=== PATIENT | female | born 1960 | race Caucasian/White ===

== ENCOUNTER → 2017-03-29 09:32 | Outpatient (CLI) | payer BC, SELFPAY ==
--- NOTE | 2017-03-29 09:36 | MRI_ITS ---
STUDY: MRI BRAIN AND IACs WITH AND WITHOUT CONTRAST REASON FOR EXAM: Female, 56 years old. Bilateral tinnitus for 5 years. This has been getting worse recently. TECHNIQUE: Standardized multiplanar fat and water weighted pulse sequences were obtained. 10 ml of Gadavist contrast material was administered intravenously for the contrast portion of the examination. COMPARISON: Prior comparison studies are not available for review at this time. FINDINGS: Normal bilateral temporal bones. Normal bilateral internal auditory canals. There is no demonstrated intracanalicular or cisternal vestibular schwannoma (acoustic neuroma). There is no enhancement of the bilateral VIIth or VIIIth cranial nerves. Normal bilateral cochlea, vestibules and semicircular canals. There is mild cerebral atrophy with widening of the extra-axial spaces and ventricular dilatation. There are a limited number of small white matter hyperintensities, distributed throughout the deep white matter tracts of the cerebral hemispheres, consistent with mild chronic white matter ischemic changes. Normal bilateral basal ganglia. Normal thalami. There is no extra-axial fluid accumulation. Normal flow voids within the major intracranial circulation suggesting patency by spin echo criteria. Normal venous enhancement. There is no enhancing intra-axial or extra-axial abnormality. Normal sella turcica, pituitary gland, infundibular stalk, optic chiasm and hypothalamus. Normal tectal plate and pineal gland. Normal midbrain, wilma and medulla. Normal cerebellum. Normal basal cisterns. No demonstrated orbital abnormality, within the constraints of a routine brain study. There is mucoperiosteal inflammatory disease of the paranasal sinuses consistent with mild chronic sinusitis. Normal calvarium and skull base. Normal visualized soft tissue structures. Normal visualized upper cervical spine. MRI/Brain W/WO Contrast IMPRESSION: 1. Involutional changes of the brain, as described above. 2. No MR evidence for acute infarct. 3. No MR evidence for cerebellopontine angle mass Electronically Signed: Darlene Perry MD at 14:32 EST , Service support ,
== END ==
PROVIDERS: Family Provider Internal Medicine; PCP Internal Medicine; Visit Provider Internal Medicine
DX: H93.19 Tinnitus, unspecified ear (principal)
CPT/HCPCS: 70553; A9585

== ENCOUNTER → 2017-12-18 14:54 | Outpatient (CLI) | payer BC, SELFPAY ==
--- NOTE | 2017-12-18 14:58 | BD_ITS ---
STUDY: DUAL ENERGY X-RAY ABSORPTIOMETRY / DXA REASON FOR EXAM: Female, 57 years old. The patient is postmenopausal. Loss of height. TECHNIQUE: Bone Mineral Density (BMD) measurements of lumbar spine and bilateral hips were obtained. COMPARISON: Comparison is made with prior study dated June 18, 2012. FINDINGS: Lumbar Spine (L1-L4): g/cm2 (1.094) / T-score (-0.7) / Z-score (0.3) Findings are suggestive of normal bone density with a low fracture risk. Left Femur Total: g/cm2 (1.084) / T-score (0.6) / Z-score (1.4) Left Femoral Neck: g/cm2 (0.982) / T-score (-0.4) / Z-score (0.8) Right Femur Total: g/cm2 (1.034) / T-score (0.2) / Z-score (1.0) Right Femoral Neck: g/cm2 (0.901) / T-score (-1.0) / Z-score (0.2) The T-Scores on the most recent prior examination were: Lumbar Spine (L1-L4): There has been worsening of bone density since the previous examination. Left Femur Total: which represents an improvement of 0.4%. Right Femur Total: which represents a worsening of 3.3%. BD/Dexa Bone Density Study IMPRESSION: The patient is considered normal as outlined below according to World Hilar[employer] Organization (WHO) criteria with a low fracture risk. There has been worsening of bone density since the previous examination. Reference Information: The T-score is the number of standard deviations above or below the standard which is normal for young adults at their peak bone mineral density. The World Health Organization (WHO) interprets the T-scores as follows: Above -1 Normal bone density Between -1 and -2.5 Osteopenia Equal to / or below -2.5 Osteoporosis As a practical clinical guideline, osteopenia may be graded as follows: Mild -1 through -1.5 Moderate -1.6 through -2.0 Severe -2.1 through -2.4 The Z-score is the number of standard deviations above or below age-matched controls. A Z-score of less than -1.5 would be considered abnormal. References: 1. NIH Osteoporosis and Related Bone Diseases http://www.osteo.org 2. International Society for Clinical Densitometry http://www.iscd.org 3. National Osteoporosis Foundation http://www.nof.org Electronically Signed: Eliel Grey MD at 14:59 EST Tel [phone], Service support ,
== END ==
PROVIDERS: Family Provider Internal Medicine; PCP Internal Medicine; Visit Provider Internal Medicine
DX: Z78.0 Asymptomatic menopausal state (principal)
CPT/HCPCS: 77080

== ENCOUNTER → 2018-01-26 07:54 | Outpatient (CLI) | payer BC, SELFPAY ==
--- NOTE | 2018-01-26 07:55 | BI_ITS ---
MAMMOGRAPHY - BILATERAL SCREENING REASON FOR EXAM: Female, 57 years old. Routine annual screening examination. PERTINENT HISTORY: Aunt with breast cancer. TECHNIQUE: Digital bilateral breast maria guadalupe (3D mammographic acquisition) in the CC and MLO projections. 2-D mediolateral oblique (MLO) and craniocaudad (CC) views of both breasts were obtained. CAD: Full Field Digital Mammography with Computer Added Detection was performed. COMPARISON: Comparison is made with prior study dated April 02, 2014 and June 18, 2012. FINDINGS: Breast Composition: There are scattered areas of fibroglandular density. There are no dominant masses or suspicious calcifications. Stable small bilateral axillary lymph nodes. No other significant abnormalities are identified. There has been no significant change since the prior study. BI/SCREENING MAMM (CAD), BILAT IMPRESSION: Stable bilateral screening mammogram. Yearly follow-up mammogram recommended. (A) ASSESSMENT CATEGORY: BIRADS Category 2: Benign. A letter regarding these results will be sent to the patient by the facility within 30 days. Approximately 10% of breast cancers are not detected by mammography. A normal mammogram should not delay biopsy of a clinically suspicious abnormality. [id number] Electronically Signed: Eliel Grey MD at 8:31 EST Tel [phone], Service support ,
--- OUTSIDE RECORDS SUMMARY | 2018-05-01 08:26 | XMS RPT_ITS | Continuity of Care Document ---
:1960 Author Organization [facility] Address [address] [facility] [address] [place] [address] Phone Care Team Providers Name Role Phone Sveta Sofia DO Unavailable Isidoro Mas MD Unavailable Renzo Corral Unavailable Dr. Terrence Wright Unavailable Manisha Magallanes LPN Unavailable Unavailable EVERT Yee Unavailable Unavailable Unavailable Unavailable Problems Name Dates Details B12 deficiency (E53.8, 266.2) Status: Active BMI 36.0-36.9,adult (Z68.36, V85.36) Status: Active BMI 37.0-37.9, adult (Z68.37, V85.37) Status: Active Body mass index 35.0-35.9, adult (Z68.35, V85.35) Status: Active Current nonsmoker (Renamed from Current non-smoker) (Z78.9, V49.89) Status: Active Deliveries (Parity) Comments: 3 Status: Active Elevated blood pressure reading (R03.0, 796.2) Status: Active Encounter for gynecological examination without abnormal finding (Z01.419, V72.31) Status: Active Encounter for screening mammogram for breast cancer (Renamed from Encounter for screening mammogram for malignant neoplasm of breast) (Z12.31, V76.12) Status: Active Family history of diabetes mellitus (Z83.3, V18.0) Status: Active Hearing loss (H91.90, 389.9) Status: Active Hyperlipidemia (E78.5, 272.4) Status: Active Neoplasm of uncertain behavior of skin (D48.5, 238.2) Comments: shave biopsy today Status: Active Noise-induced hearing loss of both ears (H83.3X3, 388.12) Status: Active Other intervertebral disc degeneration, lumbar region (M51.36, 722.52) Comments: think this is the issue- and discussed avoiding flexion and alot of bending work on posture- is chronic and need to keep up on exercises Status: Active Postmenopausal (Renamed from Postmenopausal status) (Z78.0, V49.81) Status: Active Pregnancies () Comments: 3 Status: Active Stress reaction (F43.0, 308.9) Status: Active Tinnitus (H93.19, 388.30) Status: Active Vertigo (R42, 780.4) Status: Active Vitamin D deficiency, unspecified (E55.9, 268.9) Status: Active Medications Name Dates Details CloNIDine HCl 0.1 MG Oral Tablet 1 (one) Tablet Tablet qd prn bp >150 top # for 0 days Quantity: 30 {Tablet} Refills: 0 Ordered:19-Mar-2017 Elizabeth Yee LPN Start : 19-Mar-2017 Active LORazepam 0.5 MG Oral Tablet 1/2-1 Tablet Tablet qd prn for 0 days Quantity: 30 {Tablet} Refills: 0 Ordered:19-Mar-2017 Elizabeth Yee LPN Start : 19-Mar-2017 Active Comments:thirty F43.0 Biaxin 500 MG Oral Tablet 1 (one) Tablet bid for 0 days Quantity: 28 {Tablet} Refills: 0 Ordered:19-Mar-2017 Elizabeth Yee LPN Start : 31-Aug-2016 End : 19-Mar-2017 Inactive Nasonex 50 MCG/ACT Nasal Suspension 1 (one) Garber each nostril daily for 0 days Quantity: 1 {Container} Refills: 0 Ordered:19-Mar-2017 Elizabeth Yee LPN Start : 31-Aug-2016 End : 19-Mar-2017 Inactive Nitrofurantoin Monohyd Macro 100 MG Oral Capsule 1 (one) Capsule bid for 0 days Quantity: 20 {Capsule} Refills: 0 Ordered:30-Mar-2016 Elizabeth Yee LPN Start : 24-Feb-2016 End : 30-Mar-2016 Inactive No current meds at this time Inactive No Known Historical Medications No routine meds Inactive PredniSONE 20 MG Oral Tablet 1 (one) Tablet daily for 0 days Quantity: 7 {Tablet} Refills: 0 Ordered:07-Oct-2015 Elizabeth Yee LPN Start : 01-Jan-2015 End : 07-Oct-2015 Inactive ProAir HFA 108 (90 Base) MCG/ACT Inhalation Aerosol Solution 1 (one) Aerosol Soln 1-2 puffs every 6 hours prn for 0 days Quantity: 1 {Each} Refills: 0 Ordered:07-Oct-2015 Elizabeth Yee LPN Start : 01-Jan-2015 End : 07-Oct-2015 Inactive Comments:has coupon WELLBUTRIN XL, 150MG (Oral Tablet Extended Release 24 Hour) 1 Tablet ER 24HR Tablet ER 24HR qd for 0 days Quantity: 30 {Tablet} Refills: 3 Ordered:24-Mar-2014 Litzy Zhang Start : 12-Aug-2013 End : 24-Mar-2014 Inactive Adipex-P 37.5 MG Oral Tablet 1 (one) Tablet qd for 0 days Quantity: 30 {Tablet} Refills: 0 Ordered:24-Feb-2016 Franny Treviño LPN Start : 07-Oct-2015 End : 24-Feb-2016 Discontinued Comments:bmi 35wt 231 thirty FLEXERIL, 10MG (Oral Tablet) 1 Tablet tid prn for 0 days Quantity: 20 {Tablet} Refills: 0 Ordered:05-Jun-2012 Taz Pau POLANCO Start : 05-Jun-2012 End : 05-Jun-2012 Discontinued VICODIN, 5-500MG (Oral Tablet) 1-2 Tablet every 6 hours prn for 0 days Quantity: 15 {Tablet} Refills: 0 Ordered:02-Sep-2010 Chantal Wallace Start : 02-Aug-2010 End : 09-Oct-2012 Discontinued Comments:This order discontinued per [facility]. VITAMIN D, 20404COUB (Oral Capsule) 1 (one) Capsule q week for 0 days Quantity: 12 {Capsule} Refills: 0 Ordered:02-Aug-2010 Alexa Landeros LPN Start : 20-Apr-2009 End : 02-Aug-2010 Discontinued Comments:This order discontinued per [facility]. Allergies and Adverse Reactions Name Dates Details No Known Allergies (Allergy) Onset: 24-Mar-2014 Status: Active No Known Drug Allergies (Allergy) Status: Active Past Medical History Name Dates Details Abnormal urine (R82.90, 791.9) Status: Inactive as of 19-Mar-2017 Abnormal urine (R82.90, 791.9) Status: Resolved as of 05-Jun-2012 Breast cancer screening (Z12.39, V76.10) Status: Inactive as of 25-Feb-2016 Bronchitis (J40, 490) Status: Inactive as of 07-Oct-2015 Cervical lymphadenopathy (R59.0, 785.6) Comments: not sure why. ?cat scratch ? early mono willtreat wtih atb not better then work up Status: Inactive as of 07-Oct-2015 Colon cancer screening (Z12.11, V76.51) Status: Inactive as of 25-Feb-2016 Cough (R05, 786.2) Status: Inactive as of 19-Mar-2017 Depression (F32.9, 311) Status: Inactive as of 07-Oct-2015 Dorsalgia, unspecified (M54.9, 724.5) Comments: improved Status: Inactive as of 07-Oct-2015 Fatigue (R53.83, 780.79) Comments: improving with welbutrin Status: Inactive as of 07-Oct-2015 Hoarseness or changing voice (R49.9, 784.49) Status: Inactive as of 19-Mar-2017 Lower urinary tract infection (N39.0, 599.0) Status: Inactive as of 25-Feb-2016 Mononucleosis (075) Comments: rest avoid alcohol - eat well Status: Inactive as of 07-Oct-2015 Myalgia and myositis (729.1) Status: Inactive as of 07-Oct-2015 Otalgia, unspecified ear (H92.09, 388.70) Comments: indiraior - tm normal- call sx persist Status: Resolved as of 30-Mar-2014 Other chest pain (R07.89, 786.59) Comments: yaneth for changes or worsening sx- stress tst neg Status: Resolved as of 12-Aug-2013 Other signs and symptoms in breast (N64.59, 611.79) Status: Inactive as of 07-Oct-2015 Palpitations (R00.2, 785.1) Comments: happens when anxious not routinely Status: Inactive as of 07-Oct-2015 Pelvic pain in female (R10.2, 625.9) Status: Inactive as of 19-Mar-2017 Physical exam, routine (Z00.00, V70.0) Status: Inactive as of 25-Feb-2016 Plantar fasciitis (M72.2, 728.71) Comments: chronic stable-continue present regimen Status: Inactive as of 07-Oct-2015 PostMenopausal Bleeding (N95.0, 627.1) Status: Inactive as of 07-Oct-2015 postmenopausal without estrogen Status: Inactive as of 25-Feb-2016 screening Status: Inactive as of 05-Jun-2012 Screening for HPV (human papillomavirus) (Renamed from Encounter for screening for human papillomavirus (HPV)) (Z11.51, V73.81) Status: Inactive as of 19-Mar-2017 Vertigo (R42, 780.4) Status: Inactive as of 25-Feb-2016 Weight gain (R63.5, 783.1) Status: Inactive as of 19-Mar-2017 Well Women Exam (V72.31)( Pap, Mammo, Routine Female and Dexa) (Renamed from Well Woman V72.31 (p,m,d)) (V72.31) Status: Inactive as of 10-Aug-2014 Procedures Procedure Dates Details No Known Past Surgical History Completed 24-Mar-2014 Date Value Details 29-Mar-2017 Brain W/WO Contrast Result: Comments: See Note; NOTES: [facility] Imaging Services [address] [place] [id number] Brain W/WO Contrast MR#: [id number] Acct: [id number] Name: ADILIA GARDNER Rep #: [id number] : 1960 F 56 From: Darlene Perry MD PCP: Sveta Sofia DO Status: REG CLI Study: Brain W/WO Contrast Date of Exam: 03/29/17 Exam# [id number] Ordering Dr: Sveta Sofia DO STUDY: MRI BRAI N AND IACs WITH AND WITHOUT CONTRAST REASON FOR EXAM: Female, 56 years old. Bilateral tinnitus for 5 years. This has been getting worse recently. TECHNIQUE: Standardized multiplanar fat and water weig hted pulse sequences were obtained. 10 ml of Gadavist contrast material was administered intravenously for the contrast portion of the examination. COMPARISON: Prior comparison studies are not availabl e for review at this time. FINDINGS: Normal bilateral temporal bones. Normal bilateral internal auditory canals. There is no demonstrated intracanalicular or cistern al vestibular schwannoma (acoustic neuroma). There is no enhancement of the bilateral VIIth or VIIIth cranial nerves. Normal bilateral cochlea, vestibules and semicircular canals. The re is mild cerebral atrophy with widening of the extra-axial spaces and ventricular dilatation. There are a limited number of small white matter hyperintensities, distributed throughout the deep white m atter tracts of the cerebral hemispheres, consistent with mild chronic white matter ischemic changes. Normal bilateral basal ganglia. Normal thalami. There is no extra-axial fluid accumulation. Normal flow voids within the major intracranial circulation suggesting patency by spin echo criteria. Normal venous enhancement. There is no enhancing intra-axial or extra-axial abnormality. Normal sella tur cica, pituitary gland, infundibular stalk, optic chiasm and hypothalamus. Normal tectal plate and pineal gland. Normal midbrain, wilma and medulla. Normal cerebellum. Normal basal cisterns. No demonstr ated orbital abnormality, within the constraints of a routine brain study. There is mucoperiosteal inflammatory disease of the paranasal sinuses consistent with mild chronic sinusitis. Normal calvarium and skull base. Normal visualized soft tissue structures. Normal visualized upper cervical spine. MRI/Brain W/WO Contrast IMPRESSION: 1. Involuti onal changes of the brain, as described above. 2. No MR evidence for acute infarct. 3. No MR evidence for cerebellopontine angle mass Electronically Signed: Darlene Perry MD at 14:32 EST , Service support , CC: Sveta Sofia DO Administrative Law Judge: Signed 02-Apr-2014 Bilgil Colecticag Digital AND CAD Result: Comments: See Note; NOTES: [facility] Imaging Services [address] [place] [address] Breast Imaging Report MR#: [id number] Acct: [id number] Name: ADILIA GARDNER Rep #: [id number] : 1960 F 53 From: Eliel Rosales MD PCP: Pau Mcghee DO Status: REG CLI Study: Bilat Diag Digital AND CAD Date of Exam: 04/02/14 Exam# [id number] Ordering Dr: Pau Mcghee DO MAMMOGRAPHY - BILATERAL DIAGNOSTIC REASON FOR EXAM: Female, 53 years old. Right breast pain. PERTINENT HISTORY: Non-contributory. TECHNIQUE: Digital examination. Mediolateral oblique (MLO) and craniocaudad (CC) views of both breasts were obtained. CAD: CAD was performed on this study. COMPARISON: Comparison is made with prior study dated June 18, 2012 and March 31, 2009. FINDINGS: Breast Composition: There are scattered areas of fibroglandular density. There are no dominant masses or suspicious calcifications. No other significant abnormalit ies are identified. There has been no significant change since the prior study. IMPRESSION: Stable bilateral diagnostic mammogram. One year follow-up recommended . (A) ASSESSMENT CATEGORY: BIRADS Category 2: Benign. A letter regarding these results will be sent to the patient by the facility within 30 days. Approximatel y 10% of breast cancers are not detected by mammography. A normal mammogram should not delay biopsy of a clinically suspicious abnormality. Electronically Signed: Eliel Rosales MD at 15:22 EST Tel [phone], Service support [phone], CC: Pau Mcghee DO Administrative Law Judge: Signed 16-Apr-2013 Echocardiogram Complete Result: Comments: See Note; NOTES: [facility] [address] [place] [address] Echo Complete 04/16/13 0921 MR#: [id number] Acct: [id number] Name: Landon GARDNER Rep #: [id number] : 1960 52 From: Zhou Childs MD Attending Dr: Pau Mcghee DO Status: REG CLI Ordering Dr: Pau Mcghee DO Date: 04/16/13 Location: [facility] Sex: F C Admitted: Salvador bateman This was a 2D Doppler, Color Flow transthoracic echocardiogram. Exam performed in department. Left Ventricle Normal size and thickness. The estimated ejection fraction is 65 %. No regional wal l motion abnormalities noted. Right Ventricle Normal size and thickness. Normal systolic function. Atria Normal left atrium. Normal right atrium. Normal atrial septum. Mitral Valve The mitral valve is structurally normal. No prolapse or stenosis seen. Trivial mitral valve insufficiency. Tricuspid Valve Normal tricuspid valve. Trivial tricuspid valve insufficiency. Unable to estimate RV systolic pressure. Aortic Valve Normal aortic valve. Pulmonic Valve Normal pulmonic valve. Great Vessels Normal aortic root. Normal arch. Normal inferior vena cava. Inferior vena cava collap se with sniff. Pericardium/Pleural No pericardial effusion. LVIDd: 4.6 cm IVSd: 1.1 cm Ao root diam: 3.2 cm LAV(MOD-bp): 53.8 ml LVIDs: 1.9 cm LVPWd: 0.92 cm Ao root area: 8.3 cm2 LAV(MOD-bp) I ndexed: 26.6 ml/m2 RVDd: 3.2 cm FS: 58.8 % LA dimension: 3.9 cm LAV(MOD-sp2): 52.9 ml LAV(MOD-sp4): 54.7 ml LA A4 area: 19.2 cm2 RA A4 area: 12.7 cm2 MV E max tyler: Lat Peak E' Tyler: Med Peak E' Tyler: Ao V2 max: 75.4 cm/sec 14.4 cm/sec 10.2 cm/sec 126.2 cm/sec MV A max tyler: Ao max P.4 mmHg 75.4 cm/sec MV E/A: 1.0 LV V1 max: 111.1 cm/sec PA V2 max: 92.7 cm/sec E/E' lat: 5.2 E /E' med: 7.4 LV V1 max P.9 mmHg PA max P.4 mmHg Interpretation Summary The estimated ejection fraction is 65 %. Trivial mitral valve insufficiency. Trivial tricuspid valve insufficiency. Unable to estimate RV systolic pressure. Ordering Physician: Pau Mcghee Performed By: Pia Escalante RDCS : Pau Mcghee DO Date Dictated: 04/16/13 0921 Date Transcribed: 04/16/13 1103 Administrative Law Judge: Signed Family History Unknown Family Member Name Dates Details Father Comments: - diabetes copd Status: Active First Degree Relatives Comments: DM, Emotional prob, Heart/lung dx Status: Active Mother Comments: living with anxiety - alzheimers high chol Status: Active Social History Name Dates Details Alcohol Use Comments: Occasional alcohol use Status: Active Caffeine Use Comments: 3 cola QD Status: Active Living Situation Comments: , heterosexual- 3 kids- 32, 28, 21- Status: Active 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 Non Smoker/No Tobacco Use Status: Active Vital Signs Date Test Result Details :40 Pulse 67 /min Comments: Pattern: Regular Respiration Rate 18 /min Comments: Pattern: Unlabored O2 SAT 97 % Comments: Room air BP Systolic 124 mm[Hg] Comments: Patient Position: Sitting; Cuff Location: Left Arm; Cuff Size: Large BP Diastolic 82 mm[Hg] Comments: Patient Position: Sitting; Cuff Location: Left Arm; Cuff Size: Large Weight 239 lb Height 67.25 in Body Mass Index Calculated 37.15 kg/m2 Body Surface Area Calculated 2.19 m2 :20 Pulse 75 /min Comments: Pattern: Regular Respiration Rate 18 /min Comments: Pattern: Unlabored O2 SAT 98 % Comments: Room air BP Systolic 122 mm[Hg] Comments: Patient Position: Sitting; Cuff Location: Left Arm; Cuff Size: Large BP Diastolic 88 mm[Hg] Comments: Patient Position: Sitting; Cuff Location: Left Arm; Cuff Size: Large Weight 238.5 lb Height 67.25 in Body Mass Index Calculated 37.08 kg/m2 Body Surface Area Calculated 2.19 m2 :18 Temperature 97.9 f Comments: Method: Temporal Pulse 79 /min Comments: Pattern: Regular Respiration Rate 18 /min Comments: Pattern: Unlabored O2 SAT 97 % Comments: Room air BP Systolic 118 mm[Hg] Comments: Patient Position: Sitting; Cuff Location: Left Arm; Cuff Size: Large BP Diastolic 80 mm[Hg] Comments: Patient Position: Sitting; Cuff Location: Left Arm; Cuff Size: Large Weight 236 lb Height 67.25 in Body Mass Index Calculated 36.69 kg/m2 Body Surface Area Calculated 2.18 m2 :24 Pulse 70 /min Comments: Pattern: Regular Respiration Rate 18 /min Comments: Pattern: Unlabored O2 SAT 98 % Comments: Room air BP Systolic 124 mm[Hg] Comments: Patient Position: Sitting; Cuff Location: Left Arm; Cuff Size: Large BP Diastolic 80 mm[Hg] Comments: Patient Position: Sitting; Cuff Location: Left Arm; Cuff Size: Large Weight 236 lb Height 67.25 in Body Mass Index Calculated 36.69 kg/m2 Body Surface Area Calculated 2.18 m2 :30 Temperature 97.2 f Pulse 67 /min Comments: Pattern: Regular Respiration Rate 16 /min Comments: Pattern: Unlabored O2 SAT 97 % Comments: Room air BP Systolic 118 mm[Hg] Comments: Patient Position: Sitting; Cuff Location: Left Arm; Cuff Size: Standard BP Diastolic 78 mm[Hg] Comments: Patient Position: Sitting; Cuff Location: Left Arm; Cuff Size: Standard Weight 231 lb Height 67.25 in Body Mass Index Calculated 35.91 kg/m2 Body Surface Area Calculated 2.16 m2 :18 Pulse 68 /min Comments: Pattern: Regular Respiration Rate 18 /min Comments: Pattern: Unlabored BP Systolic 128 mm[Hg] Comments: Patient Position: Sitting; Cuff Location: Left Arm; Cuff Size: Large BP Diastolic 62 mm[Hg] Comments: Patient Position: Sitting; Cuff Location: Left Arm; Cuff Size: Large Weight 231 lb Height 67.25 in Body Mass Index Calculated 35.91 kg/m2 Body Surface Area Calculated 2.16 m2 :55 Comments: refuse weight Temperature 97.6 f Comments: Method: Temporal Pulse 78 /min Comments: Pattern: Regular Respiration Rate 18 /min Comments: Pattern: Unlabored O2 SAT 95 % Comments: Room air BP Systolic 120 mm[Hg] Comments: Patient Position: Sitting; Cuff Location: Left Arm; Cuff Size: Standard BP Diastolic 80 mm[Hg] Comments: Patient Position: Sitting; Cuff Location: Left Arm; Cuff Size: Standard Height 67.25 in :05 Comments: refuse weight Temperature 97.6 f Comments: Method: Temporal Pulse 74 /min Comments: Pattern: Regular Respiration Rate 18 /min Comments: Pattern: Unlabored O2 SAT 98 % Comments: Room air BP Systolic 114 mm[Hg] Comments: Patient Position: Sitting; Cuff Location: Left Arm; Cuff Size: Large BP Diastolic 80 mm[Hg] Comments: Patient Position: Sitting; Cuff Location: Left Arm; Cuff Size: Large Height 67.25 in :02 Temperature 97.7 f Pulse 66 /min Comments: Pattern: Regular Respiration Rate 16 /min Comments: Pattern: Unlabored BP Systolic 110 mm[Hg] Comments: Patient Position: Sitting; Cuff Location: Left Arm; Cuff Size: Large BP Diastolic 82 mm[Hg] Comments: Patient Position: Sitting; Cuff Location: Left Arm; Cuff Size: Large Height 67.25 in :24 Temperature 97.8 f Comments: Method: Oral Pulse 59 /min Comments: Pattern: Regular Respiration Rate 16 /min Comments: Pattern: Unlabored BP Systolic 126 mm[Hg] Comments: Patient Position: Sitting; Cuff Location: Left Arm; Cuff Size: Standard BP Diastolic 72 mm[Hg] Comments: Patient Position: Sitting; Cuff Location: Left Arm; Cuff Size: Standard Height 67.25 in :06 Temperature 96.6 f Pulse 72 /min Comments: Pattern: Regular Respiration Rate 16 /min Comments: Pattern: Unlabored BP Systolic 114 mm[Hg] Comments: Patient Position: Sitting; Cuff Location: Left Arm; Cuff Size: Large BP Diastolic 72 mm[Hg] Comments: Patient Position: Sitting; Cuff Location: Left Arm; Cuff Size: Large Height 67.25 in :12 Temperature 96.2 f Pulse 65 /min Comments: Pattern: Regular Respiration Rate 18 /min Comments: Pattern: Unlabored BP Systolic 122 mm[Hg] Comments: Patient Position: Sitting; Cuff Location: Left Arm; Cuff Size: Large BP Diastolic 80 mm[Hg] Comments: Patient Position: Sitting; Cuff Location: Left Arm; Cuff Size: Large Weight 231 lb Height 67.25 in Body Mass Index Calculated 35.91 kg/m2 Body Surface Area Calculated 2.16 m2 :29 Temperature 97.3 f Comments: Method: Oral Pulse 76 /min Comments: Pattern: Regular Respiration Rate 20 /min Comments: Pattern: Unlabored BP Systolic 118 mm[Hg] Comments: Patient Position: Sitting; Cuff Location: Left Arm; Cuff Size: Large BP Diastolic 80 mm[Hg] Comments: Patient Position: Sitting; Cuff Location: Left Arm; Cuff Size: Large Weight 231 lb Height 67.25 in Body Mass Index Calculated 35.91 kg/m2 Body Surface Area Calculated 2.16 m2 :06 Temperature 97 f Pulse 66 /min Comments: Pattern: Regular Respiration Rate 18 /min Comments: Pattern: Unlabored BP Systolic 118 mm[Hg] Comments: Patient Position: Sitting; Cuff Location: Left Arm; Cuff Size: Large BP Diastolic 72 mm[Hg] Comments: Patient Position: Sitting; Cuff Location: Left Arm; Cuff Size: Large Height 67 in :35 Temperature 97.4 f Pulse 70 /min Comments: Pattern: Regular Respiration Rate 18 /min Comments: Pattern: Unlabored BP Systolic 116 mm[Hg] Comments: Patient Position: Sitting; Cuff Location: Left Arm; Cuff Size: Large BP Diastolic 82 mm[Hg] Comments: Patient Position: Sitting; Cuff Location: Left Arm; Cuff Size: Large Height 67 in :31 Temperature 97.4 f Pulse 86 /min Comments: Pattern: Regular Respiration Rate 18 /min Comments: Pattern: Unlabored BP Systolic 116 mm[Hg] Comments: Patient Position: Sitting; Cuff Location: Left Arm; Cuff Size: Large BP Diastolic 78 mm[Hg] Comments: Patient Position: Sitting; Cuff Location: Left Arm; Cuff Size: Large Height 67 in :44 Temperature 95.6 f Pulse 68 /min Comments: Pattern: Regular Respiration Rate 16 /min Comments: Pattern: Unlabored BP Systolic 122 mm[Hg] Comments: Patient Position: Sitting; Cuff Location: Left Arm; Cuff Size: Large BP Diastolic 80 mm[Hg] Comments: Patient Position: Sitting; Cuff Location: Left Arm; Cuff Size: Large :13 Temperature 98.8 f Pulse 76 /min Comments: Pattern: Regular Respiration Rate 16 /min Comments: Pattern: Unlabored BP Systolic 102 mm[Hg] Comments: Patient Position: Sitting; Cuff Location: Left Arm; Cuff Size: Large BP Diastolic 72 mm[Hg] Comments: Patient Position: Sitting; Cuff Location: Left Arm; Cuff Size: Large Weight 180.5 lb Height 67 in Body Mass Index Calculated 28.27 kg/m2 Body Surface Area Calculated 1.94 m2 :41 Temperature 97.3 f Comments: Method: Oral Pulse 82 /min Comments: Pattern: Regular Respiration Rate 15 /min Comments: Pattern: Unlabored BP Systolic 126 mm[Hg] Comments: Patient Position: Sitting; Cuff Location: Left Arm; Cuff Size: Standard BP Diastolic 78 mm[Hg] Comments: Patient Position: Sitting; Cuff Location: Left Arm; Cuff Size: Standard Weight 192.5 lb Height 67 in Body Mass Index Calculated 30.15 kg/m2 Body Surface Area Calculated 1.99 m2 :11 Pulse 80 /min Comments: Pattern: Regular Respiration Rate 20 /min Comments: Pattern: Unlabored BP Systolic 118 mm[Hg] Comments: Patient Position: Sitting; Cuff Location: Left Arm; Cuff Size: Standard BP Diastolic 72 mm[Hg] Comments: Patient Position: Sitting; Cuff Location: Left Arm; Cuff Size: Standard Weight 229.5 lb :19 Temperature 97.3 f Pulse 76 /min Comments: Pattern: Regular Respiration Rate 18 /min Comments: Pattern: Unlabored BP Systolic 108 mm[Hg] Comments: Patient Position: Sitting; Cuff Location: Left Arm; Cuff Size: Large BP Diastolic 74 mm[Hg] Comments: Patient Position: Sitting; Cuff Location: Left Arm; Cuff Size: Large Weight 229 lb Height 67.5 in Body Mass Index Calculated 35.34 kg/m2 Body Surface Area Calculated 2.15 m2 Results Date Description Value Details [id number] Microscopic Examination Comments: PATIENT WAS FASTINGPERFORMED BY: [employer] [facility] [id number] Bacteria None seen (Normal) Mucus Threads Present (Normal) Epithelial Cells (non renal) 0-10 {/hpf} (Normal) Range: 0 - 10 RBC 0-2 {/hpf} (Normal) Range: 0 - 2 WBC 0-5 {/hpf} (Normal) Range: 0 - 5 :06 TSH (19001) Comments: PATIENT WAS FASTINGPERFORMED BY: [employer] [facility] [id number] TSH 2.200 {uIU/mL} (Normal) Range: 0.450-4.500 :06 URINALYSIS, W/ MICRO ([id number]) Comments: PATIENT WAS FASTINGPERFORMED BY: [employer] [place] [address] [id number] Microscopic Examination See below: (Normal) Comments: Microscopic was indicated and was performed. Nitrite, Urine Negative (Normal) Urobilinogen,Semi-Qn 0.2 mg/dL (Normal) Range: 0.2-1.0 Bilirubin Negative (Normal) Occult Blood Negative (Normal) Ketones Negative (Normal) Glucose Negative (Normal) Protein Negative (Normal) WBC Esterase 1+ (Abnormal) Appearance Clear (Normal) Urine-Color Yellow (Normal) pH 5.5 (Normal) Range: 5.0-7.5 Specific [place] 1.024 (Normal) Range: 1.005-1.030 [id number] MICROALBUMIN: CREATININE RATIO Comments: PATIENT WAS FASTINGPERFORMED BY: [facility] [id number] (29170) AND (69300) Alb/Creat Ratio 4.6 {mg/g_creat} (Normal) Range: 0.0-30.0 Albumin, Urine 7.3 ug/mL (Normal) Creatinine, Urine 160.4 mg/dL (Normal) 30-Upk-349930:06 METABOLIC PANEL, COMPREHENSIVE Comments: PATIENT WAS FASTINGPERFORMED BY: [facility] [id number] (55648) ALT (SGPT) 22 [iU]/L (Normal) Range: 0-32 AST (SGOT) 26 [iU]/L (Normal) Range: 0-40 Alkaline Phosphatase, S 60 [iU]/L (Normal) Range: 39-117 Bilirubin, Total 0.4 mg/dL (Normal) Range: 0.0-1.2 A/G Ratio 2.0 (Normal) Range: 1.2-2.2 Globulin, Total 2.4 g/dL (Normal) Range: 1.5-4.5 Albumin, Serum 4.7 g/dL (Normal) Range: 3.5-5.5 Protein, Total, Serum 7.1 g/dL (Normal) Range: 6.0-8.5 Calcium, Serum 9.6 mg/dL (Normal) Range: 8.7-10.2 Carbon Dioxide, Total 23 mmol/L (Normal) Range: 18-29 Chloride, Serum 101 mmol/L (Normal) Range: 96-106 Potassium, Serum 4.8 mmol/L (Normal) Range: 3.5-5.2 Sodium, Serum 141 mmol/L (Normal) Range: 134-144 BUN/Creatinine Ratio 17 (Normal) Range: 9-23 eGFR If Africn Am 101 mL/min/1.73 (Normal) eGFR If NonAfricn Am 87 mL/min/1.73 (Normal) Creatinine, Serum 0.76 mg/dL (Normal) Range: 0.57-1.00 BUN 13 mg/dL (Normal) Range: 6-24 Glucose, Serum 90 mg/dL (Normal) Range: 65-99 56-Dyr-923274:06 CBC W/AUTO DIFF WBC (26812) Comments: PATIENT WAS FASTINGPERFORMED BY: [employer] Kuuamb[address] [id number] Immature Grans (Abs) 0.0 {x10E3/uL} (Normal) Range: 0.0-0.1 Immature Granulocytes 0 % (Normal) Baso (Absolute) 0.0 {x10E3/uL} (Normal) Range: 0.0-0.2 Eos (Absolute) 0.1 {x10E3/uL} (Normal) Range: 0.0-0.4 Monocytes(Absolute) 0.3 {x10E3/uL} (Normal) Range: 0.1-0.9 Lymphs (Absolute) 2.2 {x10E3/uL} (Normal) Range: 0.7-3.1 Neutrophils (Absolute) 2.0 {x10E3/uL} (Normal) Range: 1.4-7.0 Basos 0 % (Normal) Eos 2 % (Normal) Monocytes 6 % (Normal) Lymphs 49 % (Normal) Neutrophils 43 % (Normal) Platelets 214 {x10E3/uL} (Normal) Range: 150-379 RDW 13.6 % (Normal) Range: 12.3-15.4 MCHC 32.9 g/dL (Normal) Range: 31.5-35.7 MCH 28.8 pg (Normal) Range: 26.6-33.0 MCV 87 fL (Normal) Range: 79-97 Hematocrit 40.4 % (Normal) Range: 34.0-46.6 Hemoglobin 13.3 g/dL (Normal) Range: 11.1-15.9 RBC 4.62 {x10E6/uL} (Normal) Range: 3.77-5.28 WBC 4.6 {x10E3/uL} (Normal) Range: 3.4-10.8 90-Snz-738905:06 VITAMIN B-12 (CYANOCOBALAMIN) Comments: PATIENT WAS FASTINGPERFORMED BY: Arista PowerChristian Health Care CenterVskmei40[address] [id number] ([id number]) Vitamin B12 332 pg/mL (Normal) Range: 232-1245 16-Osq-841609:06 LIPID PANEL (54303) Comments: PATIENT WAS FASTINGPERFORMED BY: Arista PowerChristian Health Care CenterWhhjjg[address] [id number]; fu 3-5 KF LDL/HDL Ratio 2.1 {ratio_units} (Normal) Range: 0.0-3.2 Comments: LDL/HDL Ratio Men Women 1/2 Avg.Risk 1.0 1.5 Av g.Risk 3.6 3.2 2X Avg.Risk 6.2 5.0 3X Avg.Risk 8.0 6.1 LDL Cholesterol Calc 142 mg/dL (Abnormal) Range: 0-99 VLDL Cholesterol Jerald 23 mg/dL (Normal) Range: 5-40 HDL Cholesterol 67 mg/dL (Normal) Triglycerides 115 mg/dL (Normal) Range: 0-149 Cholesterol, Total 232 mg/dL (Abnormal) Range: 100-199 85-Zpj-96764:04 HPV automatic Comments: Source.............Cervix;EndocervixNo. of containers..01 CYTYC Thin Prep VialPATIENT NOT FASTINGPERFORMED BY: WB [facility] [address] [id number] BY: =G [facility] (34207) rp Ozyzbafifq899 [facility] [place] [id number] Information: [id number] HPV, high-risk Negative Comments: This high-risk HPV test detects thirteen high- risk types(16/18/31/33/35/39/45/51/52/56/58/59/68) without differentiation. . (Normal) Note: PAPSMR (Normal) Comments: The Pap smear is a screening test designed to aid in the detection ofpremalignant and malignant conditions of the uterine cervix. It is not adiagnostic procedure and should not be used as the sole mean s of detectingcervical cancer. Both false-positive and false-negative reports do occur. .This liquid based ThinPrep(R) pap test w as screened with theuse of an image guided system. See Note . (Normal) DIAGNOSIS: SPRCS (Normal) Comments: NEGATIVE FOR INTRAEPITHELIAL LESION AND MALIGNANCY.Satisfactory for evaluation. Endocervical and/or squamous metaplasticcells (endocervical component) are present.Z11.51Patsy Truong Cytot echnologist (ASCP) :41 HgA1C , Office (41568) HgA1C , Office 5.4 % (Normal) Range: 4.6 - 7.1 :32 Urinalysis, Office (34767) UA - LEUKOCYTE ESTERASE Moderate (Normal) UA - NITRITE Negative (Normal) URINE UROBILINGN SAPNA Normal mg/dL (Normal) TIMED UA - PROTEIN Negative mg/dL (Normal) UA - PH 6.0 (Normal) Comments: 5.5 UA - BLOOD Negative (Normal) UA - SPECIFIC GRAVITY 1.025 (Normal) UA - KETONES Negative mg/dL (Normal) UA - BILIRUBIN Small (Normal) UA - GLUCOSE Negative (Normal) :3 COLON BIOPSY (CHOOSE See Note (Normal) Comments: [facility] [address] [place], [address] 0 SITE) Comments: Patient: ADILIA GARDNER : 1960 (55/F) Acct Num: [id number] Phys: Terrence Wright Unit Num: [id number] Loc: LABSPEC Specimen: [id number] Received: 10/15/15 - 1503 Spec Type: COLON BX TISSUES TISSUES: GROSS DESCRIPTION A - Received is one container labeled with the patient name and designated cecum polyp biopsy. The specimen consists of multiple irregu lar fragments of light parra soft tissue that in aggregate measure 0.5 x 0.5 x 0.1 cm. The specimen is totally submitted in one cassette. B - Received is one container labeled with the patient name an d designated sigmoid/rectum polyp biopsy. The specimen consists of two irregular fragmentsof light parra soft tissue that in aggregate measure 0.6 x 0.5 x 0.1 cm. The specimen is totally submitted in o ne cassette. / SOPHIA:jericho 10/19/15 TC:1 CPT:39423 x2 HEADER OPERATION: Colonoscopy with biopsies PRE-OP DIAGNOSIS: Screening/polyp TISSUE SUBMITTED: A - Cecum polyp biopsies, rule out adenoma, B - Sigmoid/rectum polyps biopsies, rule out adenoma MICROSCOPIC DESCRIPTION Slides are reviewed. MICROSCOPIC DIAGNOSIS A. Cecum polyp, biopsy: Fragments of tubular adenoma. B. Sigmo id/rectum polyps, biopsy: Tubular adenoma. Hyperplastic polyp. SOPHIA:jericho 10/20/15 Signed Davie Marcano 10/20/15 <signature on file> :34 LIPID PANEL (85425) Comments: PATIENT WAS FASTINGPERFORMED BY: [facility] [id number]; will review on 03/30 LDL/HDL Ratio 1.9 {ratio_units} (Normal) Range: 0.0-3.2 Comments: LDL/HDL Ratio Men Women 1/2 Avg.Risk 1.0 1.5 Av g.Risk 3.6 3.2 2X Avg.Risk 6.2 5.0 3X Avg.Risk 8.0 6.1 LDL Cholesterol Calc 121 mg/dL (Abnormal) Range: 0-99 VLDL Cholesterol Jerald 17 mg/dL (Normal) Range: 5-40 HDL Cholesterol 64 mg/dL (Normal) Triglycerides 84 mg/dL (Normal) Range: 0-149 Cholesterol, Total 202 mg/dL (Abnormal) Range: 100-199 :34 CALCIFIDIOL (77721) VIT D 25 Comments: PATIENT WAS FASTINGPERFORMED BY: [facility]CoChristian [facility] Care CenterKgwjlr[address] [id number] Vitamin D, 25-Hydroxy 34.0 ng/mL (Normal) Range: 30.0-100.0 Comments: Vitamin D deficiency has been defined by the [place] ofMedicine and an Endocrine Society practice guideline as alevel of serum 25-OH vitamin D less than 20 ng/mL (1,2).The Endocrine Society went on to further define vitamin Dinsufficiency as a level between 21 and 29 ng/mL (2).1. IOM ([place] of Medicine). 2010. Dietary reference intakes for calcium and D. [place]: The National Academies Press.2. Bernardo MF, Darwin [place], Ramona BENZ, et al. Evaluation, treatment, and prevention of vitamin D deficiency: an Endocrine Society clinical practice guideline. JCEM. 2010; 96(7):1911-30. :34 VITAMIN B-12 (CYANOCOBALAMIN) Comments: PATIENT WAS FASTINGPERFORMED BY: [facility] Yjdvjw[address] [id number] ([id number]) Vitamin B12 399 pg/mL (Normal) Range: 211-946 90-Kcy-489450:47 Pathology Report Comments: PERFORMED BY: KWCYT [facility] Cyto Ojthh71992 [address] [facility] [id number] BY: [facility] Dermatopathology Cdqyaji162 [address] [id number] Information: [id number] See MATER Comments: Material submitted: .SHAVE BIOPSY BACKClinician provided ICD-9:238.2 ; Neoplasm of uncertain behavior of skinClinical history: Note (Normal) .LESION CAME ON QUICKLY RAISED. 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 DESIGNATED BACK IS AFRAGMENT OF PARRA/YELLOW TISSUE MEASURING 0.6 X 0.5 X 0.3 CM. THEMARGINS ARE INKED BLUE. THE SPECIMEN IS BISECTED AND SUBMITTED INTOTO.ARONW/MELOathologist provided ICD-9:173.52CPT .[id number] 13-Lih-845115:42 TSH (51770) Comments: PATIENT WAS FASTINGPERFORMED BY: [facility] [id number] TSH 2.050 {uIU/mL} (Normal) Range: 0.450-4.500 :42 CBC WITH MANUAL DIFF Comments: PATIENT WAS FASTINGPERFORMED BY: [facility] [id number] Information: [id number] (29642) Immature Grans (Abs) 0.0 {x10E3/uL} (Normal) Range: 0.0-0.1 Immature Granulocytes 0 % (Normal) Baso (Absolute) 0.0 {x10E3/uL} (Normal) Range: 0.0-0.2 Eos (Absolute) 0.1 {x10E3/uL} (Normal) Range: 0.0-0.4 Monocytes(Absolute) 0.3 {x10E3/uL} (Normal) Range: 0.1-0.9 Lymphs (Absolute) 2.2 {x10E3/uL} (Normal) Range: 0.7-3.1 Neutrophils (Absolute) 1.6 {x10E3/uL} (Normal) Range: 1.4-7.0 Basos 1 % (Normal) Eos 2 % (Normal) Monocytes 7 % (Normal) Lymphs 52 % (Normal) Neutrophils 38 % (Normal) Platelets 209 {x10E3/uL} (Normal) Range: 150-379 RDW 14.2 % (Normal) Range: 12.3-15.4 MCHC 33.4 g/dL (Normal) Range: 31.5-35.7 MCH 28.7 pg (Normal) Range: 26.6-33.0 MCV 86 fL (Normal) Range: 79-97 Hematocrit 40.7 % (Normal) Range: 34.0-46.6 Hemoglobin 13.6 g/dL (Normal) Range: 11.1-15.9 RBC 4.74 {x10E6/uL} (Normal) Range: 3.77-5.28 WBC 4.2 {x10E3/uL} (Normal) Range: 3.4-10.8 :42 Metabolic Panel, Comprehensive Comments: PATIENT WAS FASTINGPERFORMED BY: [facility] [id number] (26714) ALT (SGPT) 16 [iU]/L (Normal) Range: 0-32 AST (SGOT) 21 [iU]/L (Normal) Range: 0-40 Alkaline Phosphatase, S 62 [iU]/L (Normal) Range: 39-117 Bilirubin, Total 0.4 mg/dL (Normal) Range: 0.0-1.2 A/G Ratio 1.6 (Normal) Range: 1.1-2.5 Globulin, Total 2.9 g/dL (Normal) Range: 1.5-4.5 Albumin, Serum 4.5 g/dL (Normal) Range: 3.5-5.5 Protein, Total, Serum 7.4 g/dL (Normal) Range: 6.0-8.5 Calcium, Serum 9.7 mg/dL (Normal) Range: 8.7-10.2 Comments: Please note reference interval change Carbon Dioxide, Total 19 mmol/L (Normal) Range: 18-29 Chloride, Serum 104 mmol/L (Normal) Range: 97-108 Potassium, Serum 4.8 mmol/L (Normal) Range: 3.5-5.2 Sodium, Serum 140 mmol/L (Normal) Range: 134-144 BUN/Creatinine Ratio 20 (Normal) Range: 9-23 eGFR If Africn Am 114 mL/min/1.73 (Normal) eGFR If NonAfricn Am 99 mL/min/1.73 (Normal) Creatinine, Serum 0.69 mg/dL (Normal) Range: 0.57-1.00 BUN 14 mg/dL (Normal) Range: 6-24 Glucose, Serum 87 mg/dL (Normal) Range: 65-99 12-Bjk-881040:42 Lipid Panel (78379) Comments: PATIENT WAS FASTINGPERFORMED BY: LabCoChristian [facility] Care CenterMqbohp[address] [id number] LDL/HDL Ratio 2.4 {ratio_units} (Normal) Range: 0.0-3.2 Comments: LDL/HDL Ratio Men Women 1/2 Avg.Risk 1.0 1.5 Av g.Risk 3.6 3.2 2X Avg.Risk 6.2 5.0 3X Avg.Risk 8.0 6.1 LDL Cholesterol Calc 132 mg/dL (Abnormal) Range: 0-99 VLDL Cholesterol Jerald 26 mg/dL (Normal) Range: 5-40 HDL Cholesterol 54 mg/dL (Normal) Comments: According to ATP-III Guidelines, HDL-C >59 mg/dL is considered anegative risk factor for CHD. Triglycerides 132 mg/dL (Normal) Range: 0-149 Cholesterol, Total 212 mg/dL (Abnormal) Range: 100-199 32-Qfa-661386:42 CALCIFEDIOL (76772) Comments: PATIENT WAS FASTINGPERFORMED BY: [facility] Xqxsdg5724 [facility] [place] [id number] Vitamin D, 25-Hydroxy 42.0 ng/mL (Normal) Range: 30.0-100.0 Comments: Vitamin D deficiency has been defined by the [place] ofMedicine and an Endocrine Society practice guideline as alevel of serum 25-OH vitamin D less than 20 ng/mL (1,2).The Endocrine Society went on to further define vitamin Dinsufficiency as a level between 21 and 29 ng/mL (2).1. IOM ([place] of Medicine). 2010. Dietary reference intakes for calcium and D. [place]: The National Academies Press.2. Bernardo MF, Darwin ANGELO, Ramona BENZ, et al. Evaluation, treatment, and prevention of vitamin D deficiency: an Endocrine Society clinical practice guideline. JCEM. 2010; 96(7):1911-30. 98-Vop-596944:42 Vitamin B-12 (cyanocobalamin) Comments: PATIENT WAS FASTINGPERFORMED BY: [facility] Osgmdw[address] [id number] (35904) Vitamin B12 518 pg/mL (Normal) Range: 211-946 87-Hwa-82446:33 Vitamin D Hydroxy (01639) Comments: PATIENT WAS FASTINGPERFORMED BY: [facility] Ikaoiz[address] [id number] Vitamin D, 25-Hydroxy 34.7 ng/mL (Normal) Range: 30.0-100.0 Comments: Vitamin D deficiency has been defined by the [place] ofMedicine and an Endocrine Society practice guideline as alevel of serum 25-OH vitamin D less than 20 ng/mL (1,2).The Endocrine Society went on to further define vitamin Dinsufficiency as a level between 21 and 29 ng/mL (2).1. IOM ([place] of [place]). 2010. Dietary reference intakes for calcium and D. [place]: The National Academies Press.2. Bernardo MF, Darwin ANGELO, Ramona BENZ, et al. Evaluation, treatment, and prevention of vitamin D deficiency: an Endocrine Society clinical practice guideline. JCEM. 2010; 96(7):6831-30. :33 VITAMIN B-12 (CYANOCOBALAMIN) Comments: PATIENT WAS FASTINGPERFORMED BY: [employer] Man [facility] [id number] (45933) Vitamin B12 376 pg/mL (Normal) Range: 211-946 :33 LIPID PANEL (59256) Comments: PATIENT WAS FASTINGPERFORMED BY: [employer] [id number] LDL/HDL Ratio 1.8 {ratio_units} (Normal) Range: 0.0-3.2 LDL Cholesterol Calc 131 mg/dL (Abnormal) Range: 0-99 HDL Cholesterol 74 mg/dL (Normal) Comments: According to ATP-III Guidelines, HDL-C >59 mg/dL is considered anegative risk factor for CHD. VLDL Cholesterol Jerald 14 mg/dL (Normal) Range: 5-40 Triglycerides 72 mg/dL (Normal) Range: 0-149 Cholesterol, Total 219 mg/dL (Abnormal) Range: 100-199 :33 CBC WITH MANUAL DIFF Comments: PATIENT WAS FASTINGPERFORMED BY: Arista PowerAlbuquerque Indian Dental ClinicUudjtu47[address] [id number] Information: [id number] (52790) Immature Grans (Abs) 0.0 {x10E3/uL} (Normal) Range: 0.0-0.1 Immature Granulocytes 0 % (Normal) Range: 0-2 Baso (Absolute) 0.0 {x10E3/uL} (Normal) Range: 0.0-0.2 Eos (Absolute) 0.1 {x10E3/uL} (Normal) Range: 0.0-0.4 Monocytes(Absolute) 0.3 {x10E3/uL} (Normal) Range: 0.1-0.9 Lymphs (Absolute) 2.1 {x10E3/uL} (Normal) Range: 0.7-3.1 Neutrophils (Absolute) 2.0 {x10E3/uL} (Normal) Range: 1.4-7.0 Basos 1 % (Normal) Range: 0-3 Eos 2 % (Normal) Range: 0-5 Lymphs 45 % (Normal) Range: 14-46 Monocytes 8 % (Normal) Range: 4-12 Neutrophils 44 % (Normal) Range: 40-74 Platelets 216 {x10E3/uL} (Normal) Range: 155-379 RDW 14.2 % (Normal) Range: 12.3-15.4 MCHC 34.1 g/dL (Normal) Range: 31.5-35.7 MCH 28.8 pg (Normal) Range: 26.6-33.0 MCV 85 fL (Normal) Range: 79-97 Hematocrit 38.1 % (Normal) Range: 34.0-46.6 Hemoglobin 13.0 g/dL (Normal) Range: 11.1-15.9 RBC 4.51 {x10E6/uL} (Normal) Range: 3.77-5.28 WBC 4.5 {x10E3/uL} (Normal) Range: 3.4-10.8 93-Jcl-17532:33 METABOLIC PANEL, COMPREHENSIVE Comments: PATIENT WAS FASTINGPERFORMED BY: LabCoChristian [facility] Care CenterHmntjj7[address] [id number] (65048) ALT (SGPT) 14 [iU]/L (Normal) Range: 0-32 AST (SGOT) 14 [iU]/L (Normal) Range: 0-40 Alkaline Phosphatase, S 61 [iU]/L (Normal) Range: 39-117 Bilirubin, Total 0.4 mg/dL (Normal) Range: 0.0-1.2 A/G Ratio 1.7 (Normal) Range: 1.1-2.5 Globulin, Total 2.7 g/dL (Normal) Range: 1.5-4.5 Albumin, Serum 4.5 g/dL (Normal) Range: 3.5-5.5 Protein, Total, Serum 7.2 g/dL (Normal) Range: 6.0-8.5 Calcium, Serum 10.0 mg/dL (Normal) Range: 8.7-10.2 Carbon Dioxide, Total 25 mmol/L (Normal) Range: 19-28 Chloride, Serum 101 mmol/L (Normal) Range: 97-108 Potassium, Serum 4.6 mmol/L (Normal) Range: 3.5-5.2 Sodium, Serum 140 mmol/L (Normal) Range: 134-144 BUN/Creatinine Ratio 15 (Normal) Range: 9-23 eGFR If Africn Am 90 mL/min/1.73 (Normal) eGFR If NonAfricn Am 78 mL/min/1.73 (Normal) Creatinine, Serum 0.85 mg/dL (Normal) Range: 0.57-1.00 BUN 13 mg/dL (Normal) Range: 6-24 Glucose, Serum 95 mg/dL (Normal) Range: 65-99 :33 ASSAY, TROPONIN, QUANTITATIVE Comments: PATIENT WAS FASTINGPERFORMED BY: D[facility] ConsultingSw[facility] Hospital [id number] (aka Troponin I) (34752) Troponin I <0.01 ng/mL (Normal) Range: 0.00-0.04 :33 TSH (38604) Comments: PATIENT WAS FASTINGPERFORMED BY: [employer] Man [facility] [id number] TSH 2.150 {uIU/mL} (Normal) Range: 0.450-4.500 70-Uhr-431257:42 URINE MARIA GUADALUPE CULTURE-SAPNA COL Comments: PATIENT NOT FASTINGPERFORMED BY: [employer] [address] [id number] Information: SRC:UR ADD [id number] COUNT (68862) Result 1 MUG (Normal) Comments: Mixed urogenital flora6,000 Colonies/mL Urine Culture,Comprehensive Final report (Normal) :52 Microscopic Examination Comments: PATIENT WAS FASTINGPERFORMED BY: [employer] Qtzxmv[address] [id number] Bacteria Few (Normal) Mucus Threads Present (Normal) Epithelial Cells (non renal) 0-10 {/hpf} (Normal) Range: 0 - 10 RBC 0-3 {/hpf} (Normal) Range: 0 - 3 WBC 11-30 {/hpf} (Abnormal) Range: 0 - 5 :52 T3, FREE (TRIDOTHYRONINE) (36583) Comments: PATIENT WAS FASTINGPERFORMED BY: [place] 06768[address] [id number] Triiodothyronine,Free,Serum 2.4 pg/mL (Normal) Range: 2.0-4.4 :52 T4, FREE (THYROXINE) (38404) Comments: PATIENT WAS FASTINGPERFORMED BY: [address] [id number] T4,Free(Direct) 1.06 ng/dL (Normal) Range: 0.82-1.77 :52 Creatine Kinase Total (10188) Comments: PATIENT WAS FASTINGPERFORMED BY: [address] [id number] Creatine Kinase,Total,Serum 119 U/L (Normal) Range: 24-173 :52 URINALYSIS, W/ MICRO (30781) Comments: PATIENT WAS FASTINGPERFORMED BY: [address] [id number] Microscopic Examination See below: (Normal) Nitrite, Urine Negative (Normal) Urobilinogen,Semi-Qn 0.2 mg/dL (Normal) Range: 0.0-1.9 Bilirubin Negative (Normal) Occult Blood Negative (Normal) Ketones Negative (Normal) Glucose Negative (Normal) Protein Negative (Normal) WBC Esterase 2+ (Abnormal) Appearance Clear (Normal) Urine-Color Yellow (Normal) pH 6.0 (Normal) Range: 5.0-7.5 Specific [place] 1.014 (Normal) Range: 1.005-1.030 :52 LIPID PANEL (06022) Comments: PATIENT WAS FASTINGPERFORMED BY: [place] 06768[address] [id number] LDL/HDL Ratio 3.2 {ratio_units} (Normal) Range: 0.0-3.2 LDL Cholesterol Calc 125 mg/dL (Abnormal) Range: 0-99 HDL Cholesterol 39 mg/dL (Abnormal) Comments: According to ATP-III Guidelines, HDL-C >59 mg/dL is considered anegative risk factor for CHD. VLDL Cholesterol Jerald 17 mg/dL (Normal) Range: 5-40 Cholesterol, Total 181 mg/dL (Normal) Range: 100-199 Triglycerides 84 mg/dL (Normal) Range: 0-149 :52 Vitamin D Hydroxy (90103) Comments: PATIENT WAS FASTINGPERFORMED BY: [employer] [id number] Vitamin D, 25-Hydroxy 44.9 ng/mL (Normal) Range: 30.0-100.0 Comments: Vitamin D deficiency has been defined by the [place] ofMedicine and an Endocrine Society practice guideline as alevel of serum 25-OH vitamin D less than 20 ng/mL (1,2).The Endocrine Society went on to further define vitamin Dinsufficiency as a level between 21 and 29 ng/mL (2).1. IOM ([place] of Medicine). 2010. Dietary reference intakes for calcium and D. [place]: The National Academies Press.2. Bernardo MF, [place], Ramona BENZ, et al. Evaluation, treatment, and prevention of vitamin D deficiency: an Endocrine Society clinical practice guideline. JCEM. 2010; 96(7):1911-30. :52 VITAMIN B-12 (CYANOCOBALAMIN) Comments: PATIENT WAS FASTINGPERFORMED BY: [employer] Yhasok7[address] [id number] (39766) Vitamin B12 290 pg/mL (Normal) Range: 211-946 :52 EBV Panel (90913) Comments: PATIENT WAS FASTINGPERFORMED BY: [employer] Opwfgv1086 [address] [id number] Interpretation: SPRCS (Normal) Comments: EBV Interpretation Chart . Interpretation VCA-IgM EA-IgG VCA-IgG NA-ABS . Susceptible - - - - Acute Infection + +or- +or- - Convalescent Phase +or- +or- + + Chronic or Reactivated - + + +or- Old Infection - - +or- + + Antibody Present - Antibody Absent EBV Nuclear Antigen Ab, IgG >8.0 {AI} (Abnormal) Range: 0.0-0.8 Comments: Negative <0.9 Equivocal 0.9 - 1.0 Positive >1.0 EBV Ab VCA, IgG >8.0 {AI} (Abnormal) Range: 0.0-0.8 Comments: Negative <0.9 Equivocal 0.9 - 1.0 Positive >1.0 EBV Early Antigen Ab, IgG >8.0 {AI} (Abnormal) Range: 0.0-0.8 Comments: Negative <0.9 Equivocal 0.9 - 1.0 Positive >1.0 EBV Ab VCA, IgM <0.2 {AI} (Normal) Range: 0.0-0.8 Comments: Negative <0.9 Equivocal 0.9 - 1.0 Positive >1.0 36-Imz-56108:52 CBC WITH MANUAL DIFF Comments: PATIENT WAS FASTINGPERFORMED BY: [facility] [id number] Information: [id number] (73726) Immature Grans (Abs) 0.0 {x10E3/uL} (Normal) Range: 0.0-0.1 Immature Granulocytes 0 % (Normal) Range: 0-2 Baso (Absolute) 0.0 {x10E3/uL} (Normal) Range: 0.0-0.2 Eos (Absolute) 0.1 {x10E3/uL} (Normal) Range: 0.0-0.4 Monocytes(Absolute) 0.4 {x10E3/uL} (Normal) Range: 0.1-1.0 Lymphs (Absolute) 2.2 {x10E3/uL} (Normal) Range: 0.7-4.5 Neutrophils (Absolute) 2.4 {x10E3/uL} (Normal) Range: 1.8-7.8 Basos 1 % (Normal) Range: 0-3 Eos 2 % (Normal) Range: 0-7 Lymphs 43 % (Normal) Range: 14-46 Monocytes 8 % (Normal) Range: 4-13 Neutrophils 46 % (Normal) Range: 40-74 Platelets 345 {x10E3/uL} (Normal) Range: 140-415 Comments: Effective October 21, 2012, the reference intervals for CBC:WBC, Differential Parameters (Neutrophil %, Neutrophil Absolute, Lymphocyte %, Lymphocyte Absolute, Monocyte %, Monocyte Absolute, Eos inophil %, Eosinophil Absolute), and Platelet Counts will be adjusted to maintain consistency with the distribution of these values in the reference population. RDW 13.1 % (Normal) Range: 12.3-15.4 MCH 28.1 pg (Normal) Range: 26.6-33.0 MCHC 32.9 g/dL (Normal) Range: 31.5-35.7 Hematocrit 35.9 % (Normal) Range: 34.0-46.6 MCV 86 fL (Normal) Range: 79-97 Hemoglobin 11.8 g/dL (Normal) Range: 11.1-15.9 RBC 4.20 {x10E6/uL} (Normal) Range: 3.77-5.28 WBC 5.1 {x10E3/uL} (Normal) Range: 4.0-10.5 Comments: Effective October 21, 2012, the reference intervals for CBC:WBC, Differential Parameters (Neutrophil %, Neutrophil Absolute, Lymphocyte %, Lymphocyte Absolute, Monocyte %, Monocyte Absolute, Eos inophil %, Eosinophil Absolute), and Platelet Counts will be adjusted to maintain consistency with the distribution of these values in the reference population. [id number] METABOLIC PANEL, COMPREHENSIVE Comments: PATIENT WAS FASTINGPERFORMED BY: [facility] [id number] ([id number]) ALT (SGPT) 16 [iU]/L (Normal) Range: 0-32 AST (SGOT) 13 [iU]/L (Normal) Range: 0-40 Alkaline Phosphatase, S 70 [iU]/L (Normal) Range: 42-107 Bilirubin, Total 0.3 mg/dL (Normal) Range: 0.0-1.2 A/G Ratio 1.2 (Normal) Range: 1.1-2.5 Globulin, Total 3.3 g/dL (Normal) Range: 1.5-4.5 Albumin, Serum 3.9 g/dL (Normal) Range: 3.5-5.5 Protein, Total, Serum 7.2 g/dL (Normal) Range: 6.0-8.5 Calcium, Serum 9.5 mg/dL (Normal) Range: 8.7-10.2 Carbon Dioxide, Total 23 mmol/L (Normal) Range: 19-28 Chloride, Serum 102 mmol/L (Normal) Range: 97-108 Potassium, Serum 5.1 mmol/L (Normal) Range: 3.5-5.2 Sodium, Serum 140 mmol/L (Normal) Range: 134-144 BUN/Creatinine Ratio 12 (Normal) Range: 9-23 eGFR If Africn Am 96 mL/min/1.73 (Normal) Creatinine, Serum 0.81 mg/dL (Normal) Range: 0.57-1.00 eGFR If NonAfricn Am 83 mL/min/1.73 (Normal) BUN 10 mg/dL (Normal) Range: 6-24 Glucose, Serum 93 mg/dL (Normal) Range: 65-99 :52 TSH ([id number]) Comments: PATIENT WAS FASTINGPERFORMED BY: [employer] [id number] [facility] [id number] TSH 2.110 {uIU/mL} (Normal) Range: 0.450-4.500 :52 SED RATE ERYTHROCYTE (85002) Comments: PATIENT WAS FASTINGPERFORMED BY: [employer] LabNetnui.comrp [id number] [facility] [place] [id number] Sedimentation Rate-Westergren 27 mm/h (Normal) Range: 0-40 :52 C-REACTIVE PROTEIN (72813) Comments: PATIENT WAS FASTINGPERFORMED BY: [employer] LabNetnui.comrp Auvlsf3831 [facility] [place] [id number] C-Reactive Protein, Quant 59.8 mg/L (Abnormal) Range: 0.0-4.9 8-Skd-706565:41 DEXA BONE DENSITY STUDY (HP) Radiology Report See Note (Normal) Comments: PROCEDURE: DUAL ENERGY X-RAY ABSORPTIOMETRY / DXA REASON FOR EXAM: Female, 51 years old. The patient is postmenopausal. TECHNIQUE: Bone Mineral Density (BMD) measurements of lumbar spine andbilate ral hips were obtained. COMPARISON: None. FINDINGS: Lumbar Spine (L1-L4): g/cm2 (1.133) / T-score (-0.4) / Z-score (0.2) Left Femur Total: g/cm2 (1.080) / T-score (0.6) / Z-score (1.1)Left F emoral Neck: g/cm2 (0.932) / T-score (-0.8) / Z-score (0.1)Right Femur Total: g/cm2 (1.069) / T-score (0.5) / Z-score (1.0)Right Femoral Neck: g/cm2 (0.919) / T-score (-0.9) / Z-score (0. 1) IMPRESSION:The patient is considered normal, as outlined below according to WorldHealth Organization (WHO) criteria. Fracture risk is low. Reference Information:The T-score is the number of standard deviations above or below thestandard which is normal for young adults at their peak bone mineraldensity. The World Health Organization (WHO) interprets the T-scores asfollows: Above -1 Claribel l bone densityBetween -1 and -2.5 OsteopeniaEqual to / or below -2.5 Osteoporosis As a practical clinical guideline, osteopenia may be graded as follows:Mild -1 through -1.5Moderate -1.6 through -2 .0Severe -2.1 through -2.4 The Z-score is the number of standard deviations above or below age-matchedcontrols. A Z-score of less than -1.5 would be considered abnormal. References:1. NIH Osteoporosi s and Related Bone Diseases http://www.osteo.org2. International Society for Clinical Densitometry http://www.iscd.org3. National Osteoporosis Foundation http://www.nof.org Signed:Eliel Rosales M.D.June 18, 2012 at 1:43:18 PM [phone] Signed GP/GP If you are the referring physician and would like to consult with theradiologist who provided this interpretation, please contact Viry Veliz at [phone]. If this radiologist is unavailable, youwill be directed to another radiologist to assist. If you are a patient with a question regarding this report, pleasecont actyour referring physician directly. Professional Interpretation Provided By: [employer], Phone , These documents contain legally protected and confidential healthinforma tion intended only for the use of the individual or entity namedabove. If you are not the intended recipient, you are hereby notifiedthatany disclosure, copying, distribution, or other use of these docu ments isstrictly prohibited. If you have received this information in error,pleasenotify the sender immediately and arrange for the return or destructionofthese documents. Dictated on 06/18/12 1304 Haley Acuna MDranscribed on 06/18/12 1345 by ITS IMPORTSign by Eliel Rosales MD on 06/18/12 1346 Sign by: Eliel Rosales MD 5-Wji-208354:40 BILAT SCRN DIGITAL & CAD Radiology Report See Note (Normal) Comments: MAMMOGRAPHY - BILATERAL SCREENING REASON FOR EXAM: Female, 51 years old. Routine annual screeningexamination. PERTINENT HISTORY: Aunt with breast cancer. TECHNIQUE: Digital examination. Mediolat eral oblique (MLO) andcraniocaudad (CC) views of both breasts were obtained. CAD: CAD wasperformed on this study. COMPARISON: Comparison is made with prior studies dated March 31nd October 05, 2006. FINDINGS:The breast composition is composed of scattered fibroglandular tissuesranging from 25% to 50% of the breast. There are no dominant masses or suspicious calcifications. No other significa nt abnormalities are identified. There has been nosignificant change since the prior study. IMPRESSION:Stable bilateral screening mammogram. Yearly follow-up recommended. (A) ASSESSMENT CATEGORY:BIR ADS Category 2: Benign finding(s). A letter regarding these resultswill be sent to the patient by the facility within 30 days. Approximately 10% of breast cancers are not detected by mammography. Ano rmal mammogram should not delay biopsy of a clinically suspiciousabnormality. Signed:Eliel Rosales M.D.June 18, 2012 at 12:14:10 PM [id number] Signed GP/GP If you are the referrin g physician and would like to consult with theradiologist who provided this interpretation, please contact Viry Veliz at [phone]. If this radiologist is unavailable, youwill be directe d to another radiologist to assist. If you are a patient with a question regarding this report, pleasecontactyour referring physician directly. Professional Interpretation Provided By: Faith Shore , These documents contain legally protected and confidential healthinformation intended only for the use of the individual or entity namedabove. If you are not the intend ed recipient, you are hereby notifiedthatany disclosure, copying, distribution, or other use of these documents isstrictly prohibited. If you have received this information in error,pleasenotify the sen perri immediately and arrange for the return or destructionofthese documents. Dictated on 06/18/12 1042 by Matilda PEÑA,Haleyranscribed on 06/18/12 1226 by ITS IMPORTSign by Eliel Rosales MD on 06/18/12 1227 Sign by: Eliel Rosales MD 7-Yor-794366:40 PELVIC (NON ) Radiology Report See Note (Normal) Comments: PROCEDURE: ULTRASOUND OF THE FEMALE PELVIS - COMPLETE REASON FOR EXAM: Female, 51 years old. LMP: Post menopausal bleeding. TECHNIQUE: Transabdominal and Transvaginal TECHNICAL QUALITY: Adequa te. COMPARISON: None. FINDINGS:The uterus is anteverted and is in a midline position. The uterusmeasures7.1 cm x 5.8 cm by 4.0 cm. Normal uterine cervix. The endometriummeasures 3.6 mm in thickness , and is hyperechoic. There is nodemonstratedendometrial mass. The uterus is of heterogeneous echotexture. Smallfibroids are seen within it. The largest measures 1.7 cm x 1.1 cm x 1.7cm. I.U.D. - No The right ovary is non-visualized. The left ovary is non-visualized. There is no fluid in the cul-de-sac. The distended urinary bladder had a volume of 462 ml at the time of theexam. IMPRESSION:Fibro id uterus. Signed:Eliel Rosales M.D.June 18, 2012 at 1:52:03 PM [phone] Signed GP/GP If you are the referring physician and would like to consult with theradiologist who provid ed this interpretation, please contact Viry Veliz at [phone]. If this radiologist is unavailable, youwill be directed to another radiologist to assist. If you are a patient with a ques tion regarding this report, pleasecontactyour referring physician directly. Professional Interpretation Provided By: [employer], Phone , These documents contain legally pr otected and confidential healthinformation intended only for the use of the individual or entity namedabove. If you are not the intended recipient, you are hereby notifiedthatany disclosure, copying, di stribution, or other use of these documents isstrictly prohibited. If you have received this information in error,pleasenotify the sender immediately and arrange for the return or destructionofthese doc uments. Dictated on 06/18/12 1059 by Haley Rosales MDranscribed on 06/18/12 1354 by ITS IMPORTSign by Eliel Rosales MD on 06/18/12 1355 Sign by: Eliel Rosales MD 18-Jun-20120:00 TRANSVAGINAL NON- Radiology Report See Note (Normal) Comments: PROCEDURE: ULTRASOUND OF THE FEMALE PELVIS - COMPLETE REASON FOR EXAM: Female, 51 years old. LMP: Post menopausal bleeding. TECHNIQUE: Transabdominal and Transvaginal TECHNICAL QUALITY: Adequa te. COMPARISON: None. FINDINGS:The uterus is anteverted and is in a midline position. The uterusmeasures7.1 cm x 5.8 cm by 4.0 cm. Normal uterine cervix. The endometriummeasures 3.6 mm in thickness , and is hyperechoic. There is nodemonstratedendometrial mass. The uterus is of heterogeneous echotexture. Smallfibroids are seen within it. The largest measures 1.7 cm x 1.1 cm x 1.7cm. I.U.D. - No The right ovary is non-visualized. The left ovary is non-visualized. There is no fluid in the cul-de-sac. The distended urinary bladder had a volume of 462 ml at the time of theexam. IMPRESSION:Fibro id uterus. Signed:Eliel Rosales M.D.June 18, 2012 at 1:52:03 PM [id number] Signed GP/GP If you are the referring physician and would like to consult with theradiologist who provid ed this interpretation, please contact Viry Veliz at [phone]. If this radiologist is unavailable, youwill be directed to another radiologist to assist. If you are a patient with a ques tion regarding this report, pleasecontactyour referring physician directly. Professional Interpretation Provided By: [employer], Phone , These documents contain legally pr otected and confidential healthinformation intended only for the use of the individual or entity namedabove. If you are not the intended recipient, you are hereby notifiedthatany disclosure, copying, di stribution, or other use of these documents isstrictly prohibited. If you have received this information in error,pleasenotify the sender immediately and arrange for the return or destructionofthese doc uments. Dictated on 06/18/12 1059 by Haley Rosales MDranscribed on 06/18/12 1357 by ITS IMPORTSign by Eliel Rosales MD on 06/18/12 1358 Sign by: Eliel Rosales MD 70-Njo-637539:34 L/S SPINE,MIN 4 VIEWS Radiology Report See Note (Normal) Comments: PROCEDURE: X-RAY - LUMBAR SPINE REASON FOR EXAM: Female, 49 years old. Back pain TECHNIQUE: Five views of the lumbar spine were obtained. COMPARISON: None FINDINGS:Normal lumbar derek dosis. Ther e is no substantial scoliosis. Normal lumbar vertebrae. There is preservation of the intervertebral disc heights of the lumbarspine. There is no lumbar endplate spondylosis, facet arthrosis orforaminal compromise. The soft tissue structures are unremarkable. IMPRESSION:Normal x-ray examination of the lumbar spine. Dictated on 08/02/10 1037 by Andre Antonio MDTranscribed on 08/02/10 1605 by ITS IMPORT Sign by Andre Antonio MD on 08/02/10 1606 Sign by: Andre Antonio MD 5-Auw-344617:46 Microscopic Examination Comments: PERFORMED BY: [facility] [id number] Bacteria None seen (Normal) Crystal Type Amorphous Sediment (Normal) Crystals Present (Abnormal) Mucus Threads Present (Normal) Epithelial Cells (non renal) 0-10 {/hpf} (Normal) Range: 0 - 10 RBC 0-3 {/hpf} (Normal) Range: 0 - 3 WBC 0-5 {/hpf} (Normal) Range: 0 - 5 4-Msq-669359:46 Urinalysis, Routine Comments: PERFORMED BY: [employer] [facility]BionanoplusAt[facility] [id number] Information: SRC:UR Bilirubin Negative (Normal) Microscopic Examination See below: (Normal) Nitrite, Urine Negative (Normal) Urobilinogen,Semi-Qn 0.2 mg/dL (Normal) Range: 0.0-1.9 Glucose Negative (Normal) Ketones Negative (Normal) Occult Blood Negative (Normal) Appearance Clear (Normal) pH 6.0 (Normal) Range: 5.0-7.5 Protein Negative (Normal) Urine-Color Yellow (Normal) WBC Esterase Trace (Abnormal) Specific Bamberg 1.023 (Normal) Range: 1.005-1.030 :46 Urine Culture,Comprehensive Comments: PERFORMED BY: [employer] [facility] [id number] Result 1 MUG (Normal) Comments: Mixed urogenital flora10,000-25,000 colony forming units per mL Urine Final report (Normal) Culture,Comprehensive 6-Ppm-693850:18 Urinalysis, Office ([id number]) UA - LEUKOCYTE ESTERASE Small (Normal) UA - NITRITE Negative (Normal) URINE UROBILINGN SAPNA TIMED Normal mg/dL (Normal) Comments: 0.2 UA - PROTEIN Trace mg/dL (Normal) UA - PH 6.0 (Normal) UA - BLOOD Negative (Normal) UA - SPECIFIC GRAVITY 1.025 (Normal) UA - KETONES Negative mg/dL (Normal) UA - BILIRUBIN Negative (Normal) UA - GLUCOSE Negative (Normal) 61-Kck-228947:02 Microscopic Examination Comments: PATIENT WAS FASTINGPERFORMED BY: [facility] [facility] [address] [id number] Bacteria None seen (Normal) Crystal Type Amorphous Sediment (Normal) Crystals Present (Abnormal) Mucus Threads Present (Normal) Epithelial Cells (non renal) >10 {/hpf} (Abnormal) Range: 0 - 10 RBC 0-3 {/hpf} (Normal) Range: 0 - 3 WBC 6-10 {/hpf} (Abnormal) Range: 0 - 5 70-Tfd-32016:03 UNILAT RT DIAG DIGITAL & CAD Radiology Report See Note (Normal) Comments: Exam Number: [id number] UNILATERAL RIGHT DIAGNOSTIC MAMMOGRAM A 90-degree lateral as well as compression spot radiographs in the MLOposition of the right breast were obtained. Comparison is made withthe prior examination dated March 31, 2009. Interpretation wasmade with the benefit of the CAD system. HISTORYThis is a 48-year-old female patient with history of abnormality seenon the screening mammo gram. FINDINGSThere is a moderate amount of fibroglandular tissue. No dominant masslesion is seen. The previously questioned abnormality is seen alongthe mid inferior aspect of the right breast, most likely representingsuperimposition of tissue. Routine annual mammographic followup issuggested. No cluster of microcalcification is seen. The overlyingskin is not thickened. IMPRESSION1. The additio nal views do not demonstrate the previously seenabnormality. This most likely represents superimposition of tissue.2. Routine annual mammographic followup is suggested.3. Benign findings. BIRADS Cat egory 2. A letter regarding the results has been sent to the patient. This interpretation was rendered by a radiologist certified under theMammography Quality Standards Act of 1992 (MQSA). The mammogra ms werealso examined with computer-aided detection software ([employer] Reported By: ELIEL ROSALES 10-Dno-02914:33 BILAT SCRN DIGITAL & CAD Radiology Report See Note (Normal) Comments: Exam Number: [id number] MAMMOGRAM, BILATERAL SCREENING DIGITAL AND CAD HISTORYRoutine screening. Full field digital images were obtained in mediolateral oblique andcraniocaudal projection. CAD images we re reviewed. The current study is compared to the examinations of March 19, 1997,November 26, 2003, and October 05, 2006. There is a moderate to severe extent of fibroglandular parenchymapresent. There is no skin thickening or retraction, architecturaldistortion, or cluster of suspicious microcalcifications. There aremultiple, small, low-lying lymph nodes on both sides. In the rightmediolateral obl ique projection there are 2 densities in the posteriordepth of the breast at approximately the plane of the nipple. Theseapparent densities have irregular borders. It is possible that theseareas repre sent superimposition of preexisting parenchymal structures.However, to exclude the possibility of new nodules, right true lateraland mediolateral oblique spot compression views are recommended. IMPRESS IONThere are 2 irregular densities in the mid to lower right breast.These have not been definitely seen on the previous studies.Additional views are recommended. FINAL ASSESSMENTNeed additional imaging evaluation. BIRADS Category 0. A letter regarding these results has been sent to the patient. This interpretation was rendered by a radiologist certified under theMammography Quality Standards Act of 1 992 (MQSA). The mammograms werealso examined with computer-aided detection software ([employer] Reported By: JONAH ARAYA M.D. 18-Ewn-926999:02 Vitamin D Hydroxy (62797) Comments: PATIENT WAS FASTINGPERFORMED BY: [facility] [id number] Vitamin D, 25-Hydroxy 32.4 ng/mL (Normal) Range: 32.0-100.0 Comments: Recent studies consider the lower limit of 32.0 ng/mL to be athreshold for optimal health.Chilo SR. J Nutr. 2004;135(2):317-22. :02 LIPID PANEL (56543) Comments: PATIENT WAS FASTINGPERFORMED BY: [facility] [facility] [address] [id number] LDL Cholesterol Calc 136 mg/dL (Abnormal) Range: 0-99 LDL/HDL Ratio 2.6 {ratio_units} (Normal) Range: 0.0-3.2 VLDL Cholesterol Jerald 19 mg/dL (Normal) Range: 5-40 HDL Cholesterol 53 mg/dL (Normal) Comments: According to ATP-III Guidelines, HDL-C >59 mg/dL is considered anegative risk factor for CHD. Cholesterol, Total 208 mg/dL (Abnormal) Range: 100-199 Triglycerides 95 mg/dL (Normal) Range: 0-149 : URINALYSIS, W/ MICRO (52945) Comments: PATIENT WAS FASTINGPERFORMED BY: [facility] [id number] Bilirubin Negative (Normal) Ketones Negative (Normal) Microscopic Examination See below: (Normal) Nitrite, Urine Negative (Normal) Occult Blood Trace (Abnormal) Urobilinogen,Semi-Qn 0.2 mg/dL (Normal) Range: 0.0-1.9 Appearance Cloudy (Abnormal) Glucose Negative (Normal) Protein Trace (Normal) Urine-Color Yellow (Normal) WBC Esterase 1+ (Abnormal) pH 6.0 (Normal) Range: 5.0-7.5 Specific Bamberg 1.029 (Normal) Range: 1.005-1.030 : TSH (85493) Comments: PATIENT WAS FASTINGPERFORMED BY: [facility] [id number] TSH 2.110 {uIU/mL} (Normal) Range: 0.450-4.500 :02 CBC WITH MANUAL DIFF Comments: PATIENT WAS FASTINGPERFORMED BY: [facility] [id number] Information: [id number] ([id number]) Baso (Absolute) 0.0 {x10E3/uL} (Normal) Range: 0.0-0.2 Eos (Absolute) 0.0 {x10E3/uL} (Normal) Range: 0.0-0.4 Lymphs (Absolute) 2.0 {x10E3/uL} (Normal) Range: 0.7-4.5 Monocytes(Absolute) 0.3 {x10E3/uL} (Normal) Range: 0.1-1.0 Basos 1 % (Normal) Range: 0-3 Eos 0 % (Normal) Range: 0-7 Neutrophils (Absolute) 2.5 {x10E3/uL} (Normal) Range: 1.8-7.8 Lymphs 41 % (Normal) Range: 14-46 Monocytes 6 % (Normal) Range: 4-13 MCH 30.7 pg (Normal) Range: 27.0-34.0 MCHC 35.2 g/dL (Normal) Range: 32.0-36.0 Neutrophils 52 % (Normal) Range: 40-74 Platelets 192 {x10E3/uL} (Normal) Range: 140-415 RDW 12.8 % (Normal) Range: 11.7-15.0 Hematocrit 37.8 % (Normal) Range: 34.0-44.0 Hemoglobin 13.3 g/dL (Normal) Range: 11.5-15.0 MCV 87 fL (Normal) Range: 80-98 RBC 4.33 {x10E6/uL} (Normal) Range: 3.80-5.10 WBC 4.9 {x10E3/uL} (Normal) Range: 4.0-10.5 68-Xxz-107188:02 METABOLIC PANEL, COMPREHENSIVE Comments: PATIENT WAS FASTINGPERFORMED BY: [facility] Pajjtj[address] [id number] ([id number]) Alkaline Phosphatase, S 57 [iU]/L (Normal) Range: 25-150 ALT (SGPT) 13 [iU]/L (Normal) Range: 0-40 AST (SGOT) 14 [iU]/L (Normal) Range: 0-40 A/G Ratio 1.6 (Normal) Range: 1.1-2.5 Albumin, Serum 4.6 g/dL (Normal) Range: 3.5-5.5 Bilirubin, Total 0.4 mg/dL (Normal) Range: 0.1-1.2 Globulin, Total 2.9 g/dL (Normal) Range: 1.5-4.5 Protein, Total, Serum 7.5 g/dL (Normal) Range: 6.0-8.5 Calcium, Serum 9.7 mg/dL (Normal) Range: 8.7-10.2 BUN/Creatinine Ratio 24 (Normal) Range: 8-27 Carbon Dioxide, Total 21 mmol/L (Normal) Range: 20-32 Chloride, Serum 105 mmol/L (Normal) Range: 97-108 eGFR AfricanAmerican >59 mL/min/1.73 Comments: Note: Persistent reduction for 3 months or more in an eGFR<60 mL/min/1.73 m2 defines CKD. Patients with eGFR values>/=60 mL/min/1.73 m2 may also have CKD if evidence of persistentproteinuria is (Normal) present. Additional information may be found atwww.kdoqi.org. Potassium, Serum 4.3 mmol/L (Normal) Range: 3.5-5.2 Sodium, Serum 137 mmol/L (Normal) Range: 135-145 Creatinine, Serum 0.71 mg/dL (Normal) Range: 0.57-1.00 eGFR >59 mL/min/1.73 (Normal) BUN 17 mg/dL (Normal) Range: 5-26 Glucose, Serum 85 mg/dL (Normal) Range: 65-99 Plan of Care Name Dates Details Instructions Hyperlipidemia : Reviewed Lab Indication: Hyperlipidemia Elevated blood pressure reading : Follow up in 3 weeks Indication: Elevated blood pressure reading Elevated blood pressure reading : BP MONITORING - SELF Indication: Elevated blood pressure reading Hyperlipidemia : Cholesterol mgmt Indication: Hyperlipidemia BMI 36.0-36.9,adult : *Antibiotic Usage Education - Female Indication: BMI 36.0-36.9,adult Current nonsmoker (Renamed from Current non-smoker) : Eprescribed prescriptions (G8553) Indication: Current nonsmoker (Renamed from Current non-smoker) Encounter for gynecological examination without abnormal finding : Self breast exam Indication: Encounter for gynecological examination without abnormal finding Encounter for gynecological examination without abnormal finding : *Well Female Maintenance (SMC) Indication: Encounter for gynecological examination without abnormal finding Encounter for gynecological examination without abnormal finding : Pap/Pelvic/Bimanual/Rectal/Breast Exam was done. Indication: Encounter for gynecological examination without abnormal finding Pelvic pain in female : Eprescribed prescriptions (G8553) Indication: Pelvic pain in female Weight gain : Follow up in 1 month Indication: Weight gain Hyperlipidemia : Cholesterol mgmt Indication: Hyperlipidemia Other signs and symptoms in breast : Self breast exam Indication: Other signs and symptoms in breast Other signs and symptoms in breast : *Well Female Maintenance (KF) Indication: Other signs and symptoms in breast Physical exam, routine : Eprescribed prescriptions (G8553) Indication: Physical exam, routine Depression : Eprescribed prescriptions (G8553) Indication: Depression Other chest pain : Heart Palpitations *: heart palpitations Indication: Other chest pain Hyperlipidemia : Diet, Exercise, and Wt loss Indication: Hyperlipidemia Planned Observations LIPID PANEL (48613)Indication: Hyperlipidemia On: 34-Pgr-919698:42 Request Metabolic Panel, Comprehensive (97320)Indication: Hyperlipidemia On: :42 Request CBC WITH MANUAL DIFF (37369)Indication: Hyperlipidemia On: 04-Qlk-611783:42 Request VITAMIN B-12 (CYANOCOBALAMIN) (09327)Indication: B12 deficiency On: 15-Jeh-778258:42 Request Thin prep Pap (53248) (no STD testing)Indication: Encounter for gynecological examination without abnormal finding On: 68-Xwc-83323:11 Request VITAMIN B-12 (CYANOCOBALAMIN) (75462)Indication: B12 deficiency On: 7-Zcl-650660:23 Request Vitamin D Hydroxy (06803)Indication: Vitamin D deficiency, unspecified On: :23 Request C-REACTIVE PROTEIN (43772)Indication: Mononucleosis On: :28 Request VITAMIN B-12 (CYANOCOBALAMIN) (66471)Indication: B12 deficiency On: :27 Request Urinalysis, Office (69543)Indication: Lower urinary tract infection On: 20-Lhs-468437:25 Request URINE MARIA GUADALUPE CULTURE (SAPNA COL COUNT) (81323)Indication: Lower urinary tract infection On: 57-Pit-538923:25 Request Vitamin D Hydroxy (40419)Indication: Vitamin D deficiency, unspecified On: 3-Urv-839709:22 Request Planned Encounters Medical; General Medical - On: 12-Dec-2017 12:00 [facility] Sveta Sofia DO, DO, Kathleen Planned Procedures B 12 Injection, 1000 mcg On: 16-Apr-2017 Intent (J3420)By: Sveta Sofia DO Comments: vitamin b12 1000mcg injectionlot: [id number]: 06/2018L DELT 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 Sveta Sofia DO ELECTROCARDIOGRAM, COMPLETE (ECG) On: 19-Mar-2017 Intent (89980)By: Sveta Sofia DO Comments: nsr no acute chg Sveta Sofia DO MRI BRAIN W/ CONTRAST (49531)By: On: 19-Mar-2017 Intent Sveta Sofia DO, DO, Kathleen Spirometry (96635)By: Kimberlyn POLANCO, On: 31-Aug-2016 Intent Sveta Colon DO Comments: normal great curve DEXA SCAN AXIAL SKELETON On: 30-Mar-2016 Intent (26566)By: Sveta Sofia DO, DO, Kathleen MAMMOGRAM, SCREENING, BOTH BREAST On: 30-Mar-2016 Intent (51793)By: Sveta Sofia DO, DO, Kathleen Aerosol Treatment (72604)By: On: 01-Jan-2015 Intent Gala Urbina MD DIAGNOSTIC BILATERAL MAMMOGRAM On: 02-Apr-2014 Intent (74899)By: Pau Mcghee DO Comments: right breast pain Spot Compression - RightBy: Taz On: 24-Mar-2014 Intent Pau POLANCO MAMMOGRAM, SCREENING, BOTH BREAST On: 24-Mar-2014 Intent (18407)By: Pau Mcghee DO Spirometry (46779)By: Taz POLANCO On: 01-Apr-2013 Intent Pau Garcia Comments: good effort and curve normal Pulse Oximetry (41057)By: Taz POLANCO, On: 01-Apr-2013 Intent Pau Garcia Comments: 98 Nuclear Stress Test/Stress On: 01-Apr-2013 Intent SPECT/AdenosineBy: Pau Mcghee DO Comments: knee issues A Holter Monitor 24 hrsBy: Taz POLANCO, On: 01-Apr-2013 Intent Pau Garcia Echo CompleteBy: Pau Mcghee DO On: 01-Apr-2013 Intent EKG (00101)By: Pau Mcghee DO On: 01-Apr-2013 Intent Comments: ekg showed normal sinus rhythym, normal axis, no acute st/t wave changes B 12 Injection, 1000 mcg On: 22-Oct-2012 Intent (J3420)By: Pau Mcghee DO Comments: lot: [id number]: 09/25site/route: L deltoid/IMamt: 1mLVIS signed when applicableARMANI Mcghee MAMMOGRAM, SCREENING, BOTH BREASTS On: 05-Jun-2012 Intent (00535)By: Pau Mcghee DO DXA, BONE DENSITY, AXIAL SKELETON On: 05-Jun-2012 Intent ([id number])By: Pau Mcghee DO Ultrasound - PelvisBy: Taz POLANCO, On: 05-Jun-2012 Intent Pau Garcia Radiology - Lumbar SpineBy: On: 02-Aug-2010 Intent Gala Urbina MD MAMMOGRAM, SCREENING, BOTH BREASTS On: 17-Mar-2009 Intent (10634)By: Pau Mcghee DO Planned Medications Vitamin B-12 1000 MCG/ML Injection Solution Ordered: 22-Oct-2012 Pending Pau Mcghee DO Vitamin B-12 1000 MCG/ML Injection Solution Ordered: 16-Apr-2017 Pending Sveta Sofia DO, DO, Kathleen Instructions Name Dates Details Current nonsmoker (Renamed from Current non-smoker) : How to access health information online Indication: Current nonsmoker (Renamed from Current non-smoker) Current nonsmoker (Renamed from Current non-smoker) : How to access health information online - Detail Indication: Current nonsmoker (Renamed from Current non-smoker) Current nonsmoker (Renamed from Current non-smoker) : Patient Instructions Indication: Current nonsmoker (Renamed from Current non-smoker) BMI 37.0-37.9, adult : How to access health information online Indication: BMI 37.0-37.9, adult BMI 37.0-37.9, adult : How to access health information online - Detail Indication: BMI 37.0-37.9, adult BMI 37.0-37.9, adult : Patient Instructions Indication: BMI 37.0-37.9, adult Current nonsmoker (Renamed from Current non-smoker) : How to access health information online Indication: Current nonsmoker (Renamed from Current non-smoker) Current nonsmoker (Renamed from Current non-smoker) : How to access health information online - Detail Indication: Current nonsmoker (Renamed from Current non-smoker) Current nonsmoker (Renamed from Current non-smoker) : Patient Instructions Indication: Current nonsmoker (Renamed from Current non-smoker) Pelvic pain in female : How to access health information online Indication: Pelvic pain in female Pelvic pain in female : How to access health information online - Detail Indication: Pelvic pain in female Pelvic pain in female : Patient Instructions Indication: Pelvic pain in female B12 deficiency : Patient Instructions Indication: B12 deficiency Bronchitis : How to access health information online Indication: Bronchitis Bronchitis : How to access health information online - Detail Indication: Bronchitis Bronchitis : Patient Instructions Indication: Bronchitis Neoplasm of uncertain behavior of skin : Patient Instructions Indication: Neoplasm of uncertain behavior of skin Physical exam, routine : How to access health information online Indication: Physical exam, routine Physical exam, routine : How to access health information online - Detail Indication: Physical exam, routine Physical exam, routine : Patient Instructions Indication: Physical exam, routine Depression : Patient Instructions Indication: Depression Other chest pain : Patient Instructions Indication: Other chest pain Other chest pain : Patient Instructions Indication: Other chest pain Lower urinary tract infection : Patient Instructions Indication: Lower urinary tract infection Myalgia and myositis : Patient Instructions Indication: Myalgia and myositis PostMenopausal Bleeding : Patient Instructions Indication: PostMenopausal Bleeding PostMenopausal Bleeding : Patient Instructions Indication: PostMenopausal Bleeding Encounters Phone Encounter On: 28-Nov-2017 11:36 Encounter Diagnosis: Hyperlipidemia, B12 deficiency End: 28-Nov-2017 11:43 [facility] Office Visit On: 16-Apr-2017 11:28 Encounter Reason: Follow up Hypertension, [ADDITIONAL REASON] Follow up tests - Date: (04/10/17). Encounter Diagnosis: BMI 37.0-37.9, adult, Current nonsmoker (Renamed from Current non-smoker), Stress reaction, Hyperlipidemia, B12 deficiency End: 16-Apr-2017 17:39 [facility] Office Visit On: 19-Mar-2017 13:17 Encounter Reason: Follow up for chronic medical issues - The patient feels well with minor complaints, has decreased energy level and is sleeping poorly. Patient sleeps 6 hours per night. Nutrition: inappropriate diet.Encounter Diagnosis: End: 19-Mar-2017 15:33 Current nonsmoker (Renamed from Current non-smoker), BMI 37.0-37.9, adult, B12 deficiency, Hyperlipidemia, Stress reaction, Elevated blood pressure reading, Tinnitus, Noise-induced hearing loss of both ears, Vertigo [facility] Office Visit On: 31-Aug-2016 9:17 Encounter Reason: Cough - No changes in management were made at the last visit. Symptoms include cough, while symptoms do not include fever or runny nose. The cough is described as hacking and non-productive. Cough onset End: 31-Aug-2016 10:49 was sudden 2 week(s) ago. There is no known event that preceded symptom onset. The cough occurs constantly. Symptoms are described as mild. Note for Cough: and now sore throat and my tongue feels really thick and swollenEncounter Diagnosis: BMI 36.0-36.9,adult, Current nonsmoker (Renamed from Current non-smoker), Cough, Hoarseness or changing voice [facility] Office Visit On: 30-Mar-2016 7:56 Encounter Reason: Well Women Exam - The patient feels well with minor complaints, has decreased energy level and is sleeping poorly. Pap smear: date of last pap: (? yrs). Contraceptive history: The patient is not using a End: 30-Mar-2016 12:09 vt method of contraception at this time. Patient does not exercise. The patient reports that she does not perform monthly breast self exam. Calcium intake includes 1 serving milk daily. The patient juvenal es the use of oral contraceptives or hormone replacement therapy. Menstruation: Last menstrual period date: (yrs 5).Encounter Diagnosis: Encounter for gynecological examination without abnormal finding, Encounter for screening mammogram for breast cancer (Renamed from Encounter for screening mammogram for malignant neoplasm of breast), Postmenopausal (Renamed from Postmenopausal status), BMI 36.0-36.9,adult, Current nonsmoker (Renamed from Current non-smoker), Family history of diabetes mellitus, Screening for HPV (human papillomavirus) (Renamed from Encounter for screening for human papillomavirus (HPV)) [facility] Office Visit On: 24-Feb-2016 7:27 Encounter Reason: Abdominal pain - The pain has been occurring in an intermittent pattern for 2 days. The course has been decreasing. The pain is described as a moderate crampy (thumping). The pain is described as being End: 24-Feb-2016 7:59 located in the left lower quadrant. The pain does not radiate.Encounter Diagnosis: Body mass index 35.0-35.9, adult, Current nonsmoker (Renamed from Current non- smoker), Pelvic pain in female, Abnormal urine [facility] Phone Encounter On: 07-Oct-2015 14:19 Encounter Diagnosis: Colon cancer screening End: 07-Oct-2015 14:20 [facility] Office Visit On: 07-Oct-2015 13:17 Encounter Reason: Follow up for chronic medical issues - The patient feels well with minor complaints, has good energy level and is sleeping poorly. Patient has been compliant with instructions. Current medication use: n End: 07-Oct-2015 14:14 o side effects and compliant with dosing regimen. Patient sleeps 6 hours per night. Nutrition: inappropriate diet and no supplemental vitamins & iron. The medical issues the patient is following up for include All identified problems below, depression and high cholesterol.Encounter Diagnosis: Current nonsmoker (Renamed from Current non-smoker), Weight gain (783.1), B12 deficiency, Hyperlipidemia, Vitamin D deficiency, unspecified, Body mass index 35.0-35.9, adult [facility] Office Visit On: 01-Jan-2015 6:55 Encounter Reason: Bronchitis, Acute, Adult - The last clinic visit was 2 week(s) ago. Symptoms include non-productive cough, fever and fatigue. The patient describes this as moderate in severity.Encounter Diagnosis: Bronchitis, End: 01-Jan-2015 7:30 Current nonsmoker (Renamed from Current non-smoker) [facility] Office Visit On: 10-Aug-2014 9:04 Encounter Diagnosis: Cervical lymphadenopathy End: 10-Aug-2014 9:45 [facility] Phone Encounter On: 02-Apr-2014 14:06 Encounter Diagnosis: OTHER SIGNS AND SYMPTOMS IN BREAST (611.79) End: 02-Apr-2014 14:19 [facility] Office Visit On: 30-Mar-2014 8:46 Encounter Reason: Shave Biopsy - Skin lesion on back.Encounter Diagnosis: Lesion- Unknown behavior (238.2) End: 30-Mar-2014 20:31 [facility] Office Visit On: 24-Mar-2014 11:15 Encounter Reason: Well Women Exam - The patient feels well with minor complaints (stinging in R breast, would like to have mammo. Has family hx of breast cancer), has good energy level and is sleeping poorly. Pap smear: End: 25-Mar-2014 22:00 date of last pap: (2 yrs ago, Dr. Corral). Patient exercises a weekly. The patient's libido is absent. The patient reports that she does not perform monthly breast self exam. The patient denies the use of oral contraceptives or hormone replacement therapy. breast cancer in first degree relative (aunt). Menstruation: Last menstrual period date: (51 yrs). Note for Well Women Exam: she doesnt want pap or exam - she does need mammo - , [ADDITIONAL REASON] Follow up tests - Date: (03/04/14 blood work). Encounter Diagnosis: OTHER SIGNS AND SYMPTOMS IN BREAST (611.79), PHYSICAL EXAM, ROUTINE (V70.0), Lesion-Unknown behavior (238.2) [facility] Historical Summary On: 04-Mar-2014 14:05 Encounter Diagnosis: B12 deficiency (266.2), VITAMIN D DEFICIENCY, NOS (268.9), Hyperlipidemia (272.4), Fatigue (780.79) End: 04-Mar-2014 14:10 [facility] Office Visit On: 12-Aug-2013 13:03 Encounter Reason: Follow up for chronic medical issues - The patient feels well with no complaints, has good energy level and is sleeping poorly (nothing new for her). Patient has been compliant with instructions. Yudi End: 12-Aug-2013 22:55 t medication use: no side effects and compliant with dosing regimen. Patient sleeps 5 hours per night. Nutrition: inappropriate diet, no supplemental vitamins & iron and low salt diet. The medical i ssues the patient is following up for include All identified problems below, depression, high cholesterol and other (post-bob bleeding, vitamin d deficient, DDD, back pain, tinnitis). Note for Follow up for chronic medical issues: No routine labwork done for todays visit.- she hssnt taken welbutrin daily and b12 daily and really only palpitations when stressed -Encounter Diagnosis: Depression (311.), Palpitations(785.1), VITAMIN D DEFICIENCY, NOS (268.9), B12 deficiency (266.2) [facility] Office Visit On: 29-Apr-2013 13:06 Encounter Reason: Follow up tests - Diagnostic tests include ECHO, other (labs and holter monitor) and treadmill exercise stress test. Date: (04/02/13). Note for Discuss procedure results: less palpaitons and chest sx - End: 04-May-2013 22:32 overall feels better in general- tolerating welbutirn- less fatigue no side effects doesnt wnat to change doseages Encounter Diagnosis: CHEST PAIN (786.59), Palpitations(785.1), B12 deficiency (266.2), VITAMIN D DEFICIENCY, NOS (268.9), Hyperlipidemia (272.4), Fatigue (780.79) [facility] Visit On: 01-Apr-2013 13:42 Encounter Reason: Palpitations - Symptoms include palpitations, forceful heartbeat, irregular heartbeat, rapid heartbeat, fluttering heartbeat and skipped beats. Onset was gradual 6 week(s) ago. There is no known event t End: 03-Apr-2013 9:21 hat preceded symptom onset. The symptoms occur intermittently. The patient describes this as worsening. Associated symptoms include chest pain, while associated symptoms do not include dizziness, lighth eadedness, syncope, dyspnea, leg swelling, nausea or vomiting. The patient is not currently being treated for this problem. Note for Palpitations: mom had 2 heart attacks in her 60s- and grandma at age 45 from mi and other grandma age 75, [ADDITIONAL REASON] Chest pain - The onset of the pain has been gradual and has been occurring in a recurrent pattern for 6 weeks. The pain is described as a moderate pressure sensation. The pain is de scribed as being located in the left chest and left sternal border. The pain does not radiate. There are no precipitating factors. There has been no associated abdominal pain, cough, dizziness, dyspnea, emotional stress, fever, headache, nausea, neck pain, palpitations, shoulder pain or syncope. Note for Pain: no rhyme or reason to chest pain- feels like heart fluttering and then gets pressure in ch est - - 2 weeks ago woke her from sleep- not getting sx with exertion- stress not high-hasnt been takign b12 routinely and hadnt taken welbutrin until this started but happened before the welbutrin- no gerd- no water brash - no cough or wheeze not sob no dizzy no syncope- one caffeine a day- - no diet pills- no decongestatnts Encounter Diagnosis: CHEST PAIN (786.59), Palpitations(785.1), Hyperlipidemia (272.4), B12 deficiency (266.2), VITAMIN D DEFICIENCY, NOS (268.9) [facility] Office Visit On: 22-Oct-2012 9:01 Encounter Reason: Follow up, Laboratory Test Results - Date: (10/11/12). Current symptoms/reason for visit include/s Symptoms include other (still fatigued. No uti symptoms. Josué taken all her atb for uti- supposed to ta End: 22-Oct-2012 9:58 ke it bid and couple of the days only took it once daily- has 3 tabs left.). Note for Follow up to discuss laboratory test results: josué felt great all summer- feels foggy- flu like sx initially- - s till feeling some fatigue and castillo the candle at both ends- her tests with [facility] were neg- nomyalgia - still some vertigo didnt see chace Schaefer Diagnosis: UTI (lower urinary tract infection) (599.0), B12 deficiency (266.2), Mononucleosis (075) [facility] Recovered Encounter On: 11-Oct-2012 16:03 Encounter Diagnosis: UTI (lower urinary tract infection) (599.0) End: 11-Oct-2012 16:25 [facility] Office Visit On: 09-Oct-2012 10:25 Encounter Reason: Follow up for chronic medical issues - The patient feels well with minor complaints (sick with flu like symptoms), has decreased energy level and is sleeping poorly (nothing new for her). Patient has be End: 10-Oct-2012 12:20 en compliant with instructions. Current medication use: no side effects and compliant with dosing regimen. Patient sleeps 4 hours per night. Nutrition: inappropriate diet, no supplemental vitamins & iron and low salt diet. The medical issues the patient is following up for include All identified problems below, depression, high cholesterol and other (post- bob bleeding, vitamin d deficient, DDD, b ack pain, tinnitis). Note for Follow up for chronic medical issues: seeing newtonwally tomorrow- she has put it off - she has alot of tinnitus- and vertigo - and ears dont feel right - hearing issues - saw luz mas in past - no rash - no diffuse joint sx but occ back issues , [ADDITIONAL REASON] Flu Like Symptoms - Symptoms include fever, chills, body aches, facial pressure, facial pain and headache, while symptoms do not include nasal congestion, runny nose, sore throat, dry cough or productive cough. Onset was sudden 8 day(s) ago. There is no known event that preceded sy mptom onset. The symptoms occur constantly. The patient describes this as improving. Associated symptoms include ear pain (and feels foggy in head), fatigue, fever and chills, while associated symptoms do not include wheezing, shortness of breath, nausea, vomiting or diarrhea. The patient is not currently being treated for this problem. Note for Flu like symptoms: hasnt felt well for a week- getting chills-- by end of day very tired - she has alot of stress Encounter Diagnosis: Myalgia(729.1), Vertigo (780.4), Hyperlipidemia (272.4), VITAMIN D DEFICIENCY, NOS (268.9), Fatigue (780.79) [facility] Office Visit On: 10-Jul-2012 11:27 Encounter Reason: Follow up tests - Diagnostic tests include other (bone density) and ultrasound (pelvic). Date: (06/18/12). Current symptoms include other (earache). Note for Discuss procedure results: no more breast sx End: 12-Jul-2012 15:20 - cut caffeine and went away and mammo good- bone density was normal, [ADDITIONAL REASON] Earache - started yesterday. Left ear. No drainage. Has been swimming lately. No fever, but some mild lightheadedness. Encounter Diagnosis: PostMenopausal Bleeding (627.1), OTHER SIGNS AND SYMPTOMS IN BREAST (611.79), Depression (311.), Otalgia, Unspecified (388.70) [facility] Office Visit On: 05-Jun-2012 14:31 Encounter Reason: Breast pain - The onset of the breast pain has been sudden and has been occurring in a persistent pattern for months (1). The course has been decreasing. The breast pain is described as mild. The pain i End: 06-Jun-2012 23:05 s described as piercing and tingling. Note for Breast pain: location is both entire breast- Just tender now.- does alot of caffeine- both breast, [ADDITIONAL REASON] Postmenopausal Bleeding - Her current reproductive status is postmenopausal. She is not . Current menstrual history includes amenorrhea. She is sexually active. For contraception she uses nothing. Symptoms include postmenopausal bleeding, while symptoms do not include postc oital bleeding, pelvic cramping, pelvic discomfort, pelvic pain or pelvic fullness. The patient describes the bleeding as bright red and heavy. Onset was sudden 1 week(s) ago. There is no known event th at preceded symptom onset. The patient describes this as resolved. Associated symptoms do not include painful urination, nausea, diarrhea, syncope, palpitations, dyspnea or fatigue. The patient is not currently being treated for this problem. Encounter Diagnosis: PostMenopausal Bleeding (627.1), OTHER SIGNS AND SYMPTOMS IN BREAST (611.79), postmenopausal without estrogen [facility] Office Visit On: 02-Sep-2010 10:13 Encounter Reason: Follow up acute care visit - The patient feeling better since last seen and improving. Patient has been compliant with instructions. Current medication use: no side effects and compliant with dosing reg End: 02-Sep-2010 10:46 imen. Patient sleeps 7 hours per night. The medical issues the patient is following up for include All identified problems below and other (back pain). Note for Follow up acute care visit: back pain h as improved but not completely gone. Did physical therapy for 2 weeks and seen improvement with the electro-stim he did her last visit. Pt received her xray results via phone.- weight down 49 pounds and trying- pain middle of back and radiating down- pt helped alot- feels tight end of day -not overtly painful- little sore-still doing exercises that therapist gave her- no sx in legs- pain was significant with sitting and flexionEncounter Diagnosis: BACKACHE NOS (724.5), Degenerative Disc Disease - Lumbar (722.52) [facility] Office Visit On: 02-Aug-2010 9:37 Encounter Reason: Back pain - The onset of the pain has been sudden and has been occurring in a persistent pattern for 1 day. The course has been constant. The pain is characterized as stabbing. The pain is described as End: 02-Aug-2010 10:04 being located in the lumbar area. The pain does not radiate. The pain is precipitated by heavy weight lifting (lifting stove 15 years ago- was also told has buldging cracked disc). The symptoms are aggr avated by prolonged sitting. The symptoms have no relieving factors. There has been no associated fever, flank pain or hip pain. Note for Back pain: lifting yesterday and throw out. use flexeril and v icodin rarely when bad. 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 no radiculopathy. no b/b incontinence. hard to lift legEncounter Diagnosis: BACKACHE NOS (724.5) [facility] Office Visit On: 20-Apr-2009 13:06 Encounter Reason: Follow up, Laboratory Test Results - Date: (04/09/09). Encounter Diagnosis: Urine, Abnormal (791.9), Hyperlipidemia (272.4), VITAMIN D DEFICIENCY, NOS (268.9) End: 20-Apr-2009 18:04 [facility] Visit On: 17-Mar-2009 14:19 Encounter Reason: new patient female physical - Last seen more than 1 year ago. General health: feels well with minor complaints (wants to lose weight- overweight) ,has good energy level and is sleeping poorly. The patie End: 18-Mar-2009 9:46 nt's appetite is increased. Nutrition: inappropriate diet. Exercises 0 days per week. Sleeps on average 6 (interupted) hours per night. Normal bowel and bladder habits. Safety measures include appropria te use of safety belts and home smoke detectors. Current emotional problems include sleep disturbances. screening, mammography (several years ago) and screening, Pap smear (1 1/2 years ago). Note for n ew patient female physical: has plantar fasciitis being treated and better and tinnitus and seeing Chace- needs hearing aids, [ADDITIONAL REASON] Weight gain - The patient has had the problem of weight gain for 2 years. The pa tient's appetite is increased. The patient's dietary intake is increased. The patient has gained 50 pounds. The symptoms have been associated with night sweats, while the symptoms have not been associat ed with abdominal pain ,anxiety ,constipation ,depression ,diarrhea ,fever ,flushing ,nausea or vomiting. 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
--- OUTSIDE RECORDS SUMMARY | 2018-05-01 08:27 | XMS RPT_ITS | Continuity of Care Document ---
:1960 Author Organization [facility] Address [address] [facility] [address] [place] [address] Phone Care Team Providers Name Role Phone Sveta Sofia DO Unavailable Isidoro Mas MD Unavailable Renzo Corral Unavailable Dr. Terrence Wright Unavailable EVERT Yee Unavailable Unavailable Mairbell Call Unavailable Unavailable Unavailable Unavailable Problems Name Dates Details B12 deficiency (E53.8, 266.2) Status: Active BMI 37.0-37.9, adult (Z68.37, V85.37) Status: Active Current nonsmoker (Renamed from Current non-smoker) (Z78.9, V49.89) Status: Active Deliveries (Parity) Comments: 3 Status: Active Encounter for screening mammogram for breast cancer (Renamed from Encounter for screening mammogram for malignant neoplasm of breast) (Z12.31, V76.12) Status: Active Encounter for screening mammogram for breast cancer (Renamed from Encounter for screening mammogram for malignant neoplasm of breast) (Z12.31, V76.12) Status: Active Family history of diabetes mellitus (Z83.3, V18.0) Status: Active Hearing loss (H91.90, 389.9) Status: Active History of colon polyps (Z86.010, V12.72) Comments: lu q 3yrs Status: Active Hyperlipidemia (E78.5, 272.4) Status: Active Influenza vaccination declined (Renamed from Refused influenza vaccine) (Z28.21, V64.06) Comments: i dont get flu shotsi dont get flu shots Status: Active Noise-induced hearing loss of both ears (H83.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, 388.12) Status: Active Other intervertebral disc degeneration, lumbar region (M51.36, 722.52) Comments: think this is the issue- and discussed avoiding flexion and alot of bending work on posture- is chronic and need to keep up on exercises Status: Active Postmenopausal (Renamed from Postmenopausal status) (Z78.0, V49.81) Status: Active Pregnancies () Comments: 3 Status: Active Tinnitus (H93.19, 388.30) Status: Active Tinnitus, bilateral (H93.13, 388.30) Status: Active Vertigo (R42, 780.4) Status: Active Vitamin D deficiency, unspecified (E55.9, 268.9) Status: Active Medications Name Dates Details Biaxin 500 MG Oral Tablet 1 (one) Tablet bid for 0 days Quantity: 28 {Tablet} Refills: 0 Ordered:19-Mar-2017 Elizabeth Yee LPN Start : 31-Aug-2016 End : 19-Mar-2017 Inactive Nasonex 50 MCG/ACT Nasal Suspension 1 (one) Mullens each nostril daily for 0 days Quantity: [...] days Quantity: 30 {Tablet} Refills: 0 Ordered:24-Feb-2016 SlaFranny higgins LPN Start : 07-Oct-2015 End : 24-Feb-2016 Discontinued Comments:bmi 35wt 231 thirty CloNIDine HCl 0.1 MG Oral Tablet 1 (one) Tablet Tablet qd prn bp >150 top # for 0 days Quantity: 30 {Tablet} Refills: 0 Ordered:12-Dec-2017 Maribell Call Start : 19-Mar-2017 End : 12-Dec-2017 Discontinued FLEXERIL, 10MG (Oral Tablet) 1 Tablet tid prn for 0 days Quantity: 20 {Tablet} Refills: 0 Ordered:05-Jun-2012 Pau Mcghee DO Start : 05-Jun-2012 End : 05-Jun-2012 Discontinued LORazepam 0.5 MG Oral Tablet 1/2-1 Tablet Tablet qd prn for 0 days Quantity: 30 {Tablet} Refills: 0 Ordered:12-Dec-2017 Maribell Call Start : 19-Mar-2017 End : 12-Dec-2017 Discontinued Comments:thirty F43.0 VICODIN, 5-500MG (Oral Tablet) 1-2 Tablet every 6 hours prn for 0 days Quantity: 15 {Tablet} Refills: 0 Ordered:02-Sep-2010 Chantal Wallace Start : 02-Aug-2010 End : 09-Oct-2012 Discontinued Comments:This order discontinued per [facility]. VITAMIN D, 43468WTMI (Oral Capsule) 1 (one) Capsule q week [...] (R82.90, 791.9) Status: Resolved as of 05-Jun-2012 BMI 36.0-36.9,adult (Z68.36, V85.36) Status: Inactive as of 12-Dec-2017 Body mass index 35.0-35.9, adult (Z68.35, V85.35) Status: Inactive as of 12-Dec-2017 Breast cancer screening (Z12.39, V76.10) Status: Inactive [...] Comments: improved Status: Inactive as of 07-Oct-2015 Elevated blood pressure reading (R03.0, 796.2) Status: Inactive as of 12-Dec-2017 Encounter for gynecological examination without abnormal finding (Z01.419, V72.31) Status: Inactive as of 12-Dec-2017 Fatigue (R53.83, 780.79) Comments: improving with welbutrin Status: Inactive as of 07-Oct-2015 Hoarseness or changing voice (R49.9, 784.49) Status: Inactive as of 19-Mar-2017 Lower urinary tract infection (N39.0, 599.0) Status: Inactive as of 25-Feb-2016 Mononucleosis (075) Comments: rest avoid alcohol - eat well Status: Inactive as of 07-Oct-2015 Myalgia and myositis (729.1) Status: Inactive as of 07-Oct-2015 Neoplasm of uncertain behavior of skin (D48.5, 238.2) Comments: shave biopsy today Status: Inactive as of 12-Dec-2017 Otalgia, unspecified ear (H92.09, 388.70) Comments: azul - tm normal- call sx persist Status: Resolved as of 30-Mar-2014 Other chest pain (R07.89, 786.59) Comments: indirair for changes or worsening sx- stress tst [...] (Z11.51, V73.81) Status: Inactive as of 19-Mar-2017 Stress reaction (F43.0, 308.9) Status: Resolved as of 12-Dec-2017 Vertigo (R42, 780.4) Status: Inactive as of 25-Feb-2016 Weight gain (R63.5, 783.1) Status: Inactive as of 19-Mar-2017 Well Women Exam (V72.31)( Pap, Mammo, Routine Female and Dexa) (Renamed from Well Woman V72.31 (p,m,d)) (V72.31) Status: Inactive as of 10-Aug-2014 Procedures Procedure Dates Details No Known Past Surgical History Completed 24-Mar-2014 Date Value Details 29-Mar-2017 Brain W/WO Contrast Result: Comments: See Note; NOTES: [facility] Imaging Services [address] [place] [address] Brain W/WO Contrast MR#: [id number] Acct: [id number] Name: ADILIA GARDNER Rep #: [id number] : 1960 F 56 From: Darlene Perry MD PCP: Sveta Sofia DO Status: REG CLI Study: Brain W/WO Contrast Date of Exam: 03/29/17 Exam# [id number] Ordering Dr: Sveta Sofia DO STUDY: MRI [...] Service support , CC: Sveta Sofia DO Pure Pak Machine Operator: Signed 02-Apr-2014 Bilat Diag Digital AND CAD Result: Comments: See Note; NOTES: [facility] Imaging Services [address] [place] [address] Breast Imaging Report MR#: [id number] Acct: [id number] Name: ADILIA GARDNER Rep #: [id number] : 1960 F 53 From: Eliel Rosales MD PCP: Pau Mcghee DO Status: REG CLI Study: Bilat Diag Digital AND CAD Date of Exam: 04/02/14 Exam# [id number] Ordering Dr: Pau Mcghee DO MAMMOGRAPHY - [...] a clinically suspicious abnormality. Electronically Signed: Eliel Roslaes MD at 15:22 EST Tel [phone], Service support [phone], CC: Pau Mcghee DO Pure Pak Machine Operator: Signed 16-Apr-2013 Echocardiogram Complete Result: Comments: See Note; NOTES: [facility] Cardiovascular Services [address] [place] [address] Echo Complete 04/16/13 0921 MR#: [id number] Acct: [id number] Name: Landon GARDNER Rep #: [id number] : 1960 52 From: Zhuo Childs MD Attending Dr: Pau Mcghee DO Status: REG CLI Ordering Dr: Pau Mcghee DO Date: 04/16/13 Location: [facility] Sex: F C Admitted: Salvador bateman This [...] Ordering Physician: Pau Mcghee Performed By: Pia Escalante, RDCS : Pau Mchgee DO Date Dictated: 04/16/13920 Date Transcribed: 04/16/13 1103 Pure Pak Machine Operator: Signed Family History Unknown Family Member Name [...] Status: Active 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 Non Smoker/No Tobacco Use Status: Active Vital Signs Date Test Result Details :14 Temperature 97.4 f Comments: Method: Temporal Pulse 72 /min Comments: Pattern: Regular Respiration Rate 18 /min Comments: Pattern: Unlabored O2 SAT 97 % Comments: Room air BP Systolic 122 mm[Hg] Comments: Patient Position: Sitting; Cuff Location: Left Arm; Cuff Size: Standard BP Diastolic 70 mm[Hg] Comments: Patient Position: Sitting; Cuff Location: Left Arm; Cuff Size: Standard :40 Pulse 67 /min Comments: Pattern: Regular [...] 2.15 m2 Results Date Description Value Details :29 LIPID PANEL (16940) Comments: PATIENT WAS FASTINGPERFORMED BY: [facility] Craqwy[address] [facility] [id number] LDL/HDL Ratio 2.1 {ratio} (Normal) Range: 0.0-3.2 Comments: LDL/HDL Ratio Men Women 1/2 Avg.Risk 1.0 1.5 Av g.Risk 3.6 3.2 2X Avg.Risk 6.2 5.0 3X Avg.Risk 8.0 6.1 LDL Cholesterol Calc 135 mg/dL (Abnormal) Range: 0-99 VLDL Cholesterol Jerald 23 mg/dL (Normal) Range: 5-40 HDL Cholesterol 63 mg/dL (Normal) Triglycerides 115 mg/dL (Normal) Range: 0-149 Cholesterol, Total 221 mg/dL (Abnormal) Range: 100-199 :29 Metabolic Panel, Comprehensive Comments: PATIENT WAS FASTINGPERFORMED BY: Melon[address] [facility] [id number] (44183) ALT (SGPT) 12 [iU]/L (Normal) Range: 0-32 AST (SGOT) 20 [iU]/L (Normal) Range: 0-40 Alkaline Phosphatase 58 [iU]/L (Normal) Range: 39-117 Bilirubin, Total 0.5 mg/dL (Normal) Range: 0.0-1.2 A/G Ratio 1.9 (Normal) Range: 1.2-2.2 Globulin, Total 2.4 g/dL (Normal) Range: 1.5-4.5 Albumin 4.6 g/dL (Normal) Range: 3.5-5.5 Protein, Total 7.0 g/dL (Normal) Range: 6.0-8.5 Calcium 9.6 mg/dL (Normal) Range: 8.7-10.2 Carbon Dioxide, Total 23 mmol/L (Normal) Range: 20-29 Chloride 102 mmol/L (Normal) Range: 96-106 Potassium 4.2 mmol/L (Normal) Range: 3.5-5.2 Sodium 141 mmol/L (Normal) Range: 134-144 BUN/Creatinine Ratio 14 (Normal) Range: 9-23 eGFR If Africn Am 107 mL/min/1.73 (Normal) eGFR If NonAfricn Am 93 mL/min/1.73 (Normal) Creatinine 0.72 mg/dL (Normal) Range: 0.57-1.00 BUN 10 mg/dL (Normal) Range: 6-24 Glucose 86 mg/dL (Normal) Range: 65-99 39-Txz-10349:29 CBC WITH MANUAL DIFF (36017) Comments: PATIENT WAS FASTINGPERFORMED BY: LabZiebel70 [address] [facility] [id number] Immature Grans (Abs) 0.0 {x10E3/uL} (Normal) Range: 0.0-0.1 Immature Granulocytes 0 % (Normal) Baso (Absolute) 0.0 {x10E3/uL} (Normal) Range: 0.0-0.2 Eos (Absolute) 0.1 {x10E3/uL} (Normal) Range: 0.0-0.4 Monocytes(Absolute) 0.3 {x10E3/uL} (Normal) Range: 0.1-0.9 Lymphs (Absolute) 1.8 {x10E3/uL} (Normal) Range: 0.7-3.1 Neutrophils (Absolute) 1.8 {x10E3/uL} (Normal) Range: 1.4-7.0 Basos 1 % (Normal) Eos 2 % (Normal) Monocytes 9 % (Normal) Lymphs 44 % (Normal) Neutrophils 44 % (Normal) Platelets 205 {x10E3/uL} (Normal) Range: 150-379 RDW 13.6 % (Normal) Range: 12.3-15.4 MCHC 33.9 g/dL (Normal) Range: 31.5-35.7 MCH 29.9 pg (Normal) Range: 26.6-33.0 MCV 88 fL (Normal) Range: 79-97 Hematocrit 37.5 % (Normal) Range: 34.0-46.6 Hemoglobin 12.7 g/dL (Normal) Range: 11.1-15.9 RBC 4.25 {x10E6/uL} (Normal) Range: 3.77-5.28 WBC 4.0 {x10E3/uL} (Normal) Range: 3.4-10.8 96-Kff-58395:29 VITAMIN B-12 (CYANOCOBALAMIN) Comments: PATIENT WAS FASTINGPERFORMED BY: [employer] Slide[facility]ocketU[facility]L [facility] [id number] (88033) Vitamin B12 349 pg/mL (Normal) Range: 232-1245 56-Nhm-190673:06 Microscopic Examination Comments: PATIENT WAS FASTINGPERFORMED BY: [employer] 17u.[facility] [place] [id number] Bacteria None seen (Normal) Mucus Threads Present (Normal) Epithelial Cells (non renal) 0-10 {/hpf} (Normal) Range: 0 - 10 RBC 0-2 {/hpf} (Normal) Range: 0 - 2 WBC 0-5 {/hpf} (Normal) Range: 0 - 5 04-Xyj-925474:06 TSH (93193) Comments: PATIENT WAS FASTINGPERFORMED BY: [facility] [facility] [id number] TSH 2.200 {uIU/mL} (Normal) Range: 0.450-4.500 72-Qnw-280321:06 URINALYSIS, W/ MICRO (45399) Comments: PATIENT WAS FASTINGPERFORMED BY: [facility] [facility] [id number] Microscopic Examination See below: (Normal) Comments: Microscopic was indicated and was performed. Nitrite, Urine Negative (Normal) Urobilinogen,Semi-Qn 0.2 mg/dL (Normal) Range: 0.2-1.0 Bilirubin Negative (Normal) Occult Blood Negative (Normal) Ketones Negative (Normal) Glucose Negative (Normal) Protein Negative (Normal) WBC Esterase 1+ (Abnormal) Appearance Clear (Normal) Urine-Color Yellow (Normal) pH 5.5 (Normal) Range: 5.0-7.5 Specific [place] 1.024 (Normal) Range: 1.005-1.030 89-Lsr-601337:06 MICROALBUMIN: CREATININE RATIO Comments: PATIENT WAS FASTINGPERFORMED BY: [facility] [facility] [address] [id number] (12827) AND (62619) Alb/Creat Ratio 4.6 {mg/g_creat} (Normal) Range: 0.0-30.0 Albumin, Urine 7.3 ug/mL (Normal) Creatinine, Urine 160.4 mg/dL (Normal) 53-Mdj-620686:06 METABOLIC PANEL, COMPREHENSIVE Comments: PATIENT WAS FASTINGPERFORMED BY: [facility] [facility] [address] [id number] (84431) ALT (SGPT) 22 [iU]/L (Normal) Range: 0-32 [...] Glucose, Serum 90 mg/dL (Normal) Range: 65-99 20-Flu-314677:06 CBC W/AUTO DIFF WBC (09349) Comments: PATIENT WAS FASTINGPERFORMED BY: LabCoVirtua MarltonZbteah[address] [facility] [id number] Immature Grans (Abs) 0.0 {x10E3/uL} (Normal) Range: [...] 3.77-5.28 WBC 4.6 {x10E3/uL} (Normal) Range: 3.4-10.8 90-Nsp-728860:06 VITAMIN B-12 (CYANOCOBALAMIN) Comments: PATIENT WAS FASTINGPERFORMED BY: [place] LabNovira TherapeuticsVirtua MarltonQkiltd67[address] [facility] [id number] (75213) Vitamin B12 332 pg/mL (Normal) Range: 232-1245 20-Dfl-312392:06 LIPID PANEL (08609) Comments: PATIENT WAS FASTINGPERFORMED BY: LabCoVirtua MarltonXzwyjs90[address] [facility] [id number]; fu 3-5 KF LDL/HDL Ratio 2.1 {ratio_units} [...] Cholesterol, Total 232 mg/dL (Abnormal) Range: 100-199 02-Xxx-75054:04 HPV automatic Comments: Source.............Cervix;EndocervixNo. of containers..01 CYTYC Thin Prep VialPATIENT NOT FASTINGPERFORMED BY: WB [facility] Kevin Perry [place] [id number] BY: =G [facility] (52222) rp Kevin [place] [id number] Information: [id number] HPV, high-risk Negative Comments: This high-risk HPV [...] and/or squamous metaplasticcells (endocervical component) are present.Z11.51Patsy Truong, Cytot echnologist (ASCP) :41 HgA1C , Office (11615) HgA1C , Office 5.4 % (Normal) Range: 4.6 - 7.1 :32 Urinalysis, Office (18856) UA - LEUKOCYTE ESTERASE Moderate (Normal) UA [...] COLON BIOPSY (CHOOSE See Note (Normal) Comments: [facility] [address] [place], [address] 0 SITE) Comments: Patient: ADILIA GARDNER : 1960 (55/F) Acct Num: [id number] Phys: Terrence Wright Unit Num: [id number] Loc: [facility] Specimen: [id number] Received: 10/15/15 - 1507 Spec Type: COLON BX TISSUES TISSUES: GROSS [...] totally submitted in o ne cassette. / SJ:jericho 10/19/15 TC:1 CPT:17272 x2 HEADER OPERATION: Colonoscopy with biopsies PRE-OP DIAGNOSIS: Screening/polyp TISSUE SUBMITTED: A - Cecum polyp biopsies, rule out adenoma, B - Sigmoid/rectum polyps biopsies, rule out adenoma MICROSCOPIC DESCRIPTION Slides are reviewed. MICROSCOPIC DIAGNOSIS A. Cecum polyp, biopsy: Fragments of tubular adenoma. B. Sigmo id/rectum polyps, biopsy: Tubular adenoma. Hyperplastic polyp. SJ:jericho 10/20/15 Signed Davie Marcano 10/20/15 <signature on file> :34 LIPID PANEL (00075) Comments: PATIENT WAS FASTINGPERFORMED BY: [facility] Tgvchi[address] [facility] [id number]; will review on 03/30 LDL/HDL Ratio 1.9 [...] 202 mg/dL (Abnormal) Range: 100-199 :34 CALCIFIDIOL (98844) VIT D 25 Comments: PATIENT WAS FASTINGPERFORMED BY: [facility] [facility] [id number] Vitamin D, 25-Hydroxy 34.0 ng/mL (Normal) Range: 30.0-100.0 Comments: Vitamin D deficiency has been defined by the [place] of[place]icine and an Endocrine Society practice guideline as alevel of serum 25-OH vitamin D less than 20 ng/mL (1,2).The Endocrine Society went on to further define vitamin Dinsufficiency as a level between 21 and 29 ng/mL (2).1. IOM ([place] of Medicine). 2010. Dietary reference intakes for calcium and D. [place]: The National Academies Press.2. Bernardo MF, Darwin ANGELO, Ramona BENZ, et al. Evaluation, treatment, and prevention of vitamin D deficiency: an Endocrine Society clinical practice guideline. JCEM. 2010; 96(7):1911-30. :34 VITAMIN B-12 (CYANOCOBALAMIN) Comments: PATIENT WAS FASTINGPERFORMED BY: [facility] Rqmzdc[address] [facility] [id number] (04457) Vitamin B12 399 pg/mL (Normal) Range: 211-946 54-Clb-009152:47 Pathology Report Comments: PERFORMED BY: [facility] Cyto Laegt49090 [facility] [id number] BY: [facility] Dermatopathology Uledpfp[address] [id number] Information: [id number] See MATER Comments: Material submitted: .SHAVE BIOPSY BACKClinician provided ICD-9:238.2 ; Neoplasm of uncertain behavior of skinClinical history: Note (Normal) .LESION CAME ON QUICKLY RAISED. 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 THEMARGINS ARE INKED BLUE. THE SPECIMEN IS BISECTED AND SUBMITTED INTOTO.XJW/HAOSPathologist provided ICD-9:173.52CPT .[id number] 33-Fau-624093:42 TSH (08642) Comments: PATIENT WAS FASTINGPERFORMED BY: [facility]Asp[facility] [facility] [id number] TSH 2.050 {uIU/mL} (Normal) Range: 0.450-4.500 14-Blk-229327:42 CBC WITH MANUAL DIFF Comments: PATIENT WAS FASTINGPERFORMED BY: LabAsp[facility] [facility] [id number] Information: [id number] (61901) Immature Grans (Abs) 0.0 {x10E3/uL} (Normal) Range: [...] 3.77-5.28 WBC 4.2 {x10E3/uL} (Normal) Range: 3.4-10.8 27-Ocq-267756:42 Metabolic Panel, Comprehensive Comments: PATIENT WAS FASTINGPERFORMED BY: LabCoVirtua MarltonDzmdbv0599 [facility] [id number] (94712) ALT (SGPT) 16 [iU]/L (Normal) Range: 0-32 [...] Glucose, Serum 87 mg/dL (Normal) Range: 65-99 13-Hrl-982392:42 Lipid Panel (87488) Comments: PATIENT WAS FASTINGPERFORMED BY: [facility] [id number] LDL/HDL Ratio 2.4 {ratio_units} (Normal) Range: 0.0-3.2 [...] Cholesterol, Total 212 mg/dL (Abnormal) Range: 100-199 05-Pro-331270:42 CALCIFEDIOL (83189) Comments: PATIENT WAS FASTINGPERFORMED BY: wishkicker [facility] [id number] Vitamin D, 25-Hydroxy 42.0 ng/mL (Normal) Range: 30.0-100.0 Comments: Vitamin D deficiency has been defined by the [place] of[place]icine and an Endocrine Society practice guideline as alevel of serum 25-OH vitamin D less than 20 ng/mL (1,2).The Endocrine Society went on to further define vitamin Dinsufficiency as a level between 21 and 29 ng/mL (2).1. IOM ([place] of Medicine). 2010. Dietary reference intakes for calcium and D. [place]: The National Academies Press.2. Darwin Read, Ramona BENZ, et al. Evaluation, treatment, and prevention of vitamin D deficiency: an Endocrine Society clinical practice guideline. JCEM. 2010; 96(7):1911-30. :42 Vitamin B-12 (cyanocobalamin) Comments: PATIENT WAS FASTINGPERFORMED BY: CB [facility] Pjfhkl8803 [address]no RoadDublin [place] [id number] (09328) Vitamin B12 518 pg/mL (Normal) Range: 211-946 :33 Vitamin D Hydroxy (02531) Comments: PATIENT WAS FASTINGPERFORMED BY: CB [facility] Pphrnq7456 [address]no RoadDublin [place] [id number] Vitamin D, 25-Hydroxy 34.7 ng/mL (Normal) Range: 30.0-100.0 Comments: Vitamin D deficiency has been defined by the [place] of[place]icine and an Endocrine Society practice guideline as alevel of serum 25-OH vitamin D less than 20 ng/mL (1,2).The Endocrine Society went on to further define vitamin Dinsufficiency as a level between 21 and 29 ng/mL (2).1. IOM ([place] of [place]). 2010. Dietary reference intakes for calcium and D. [place]: The National Academies Press.2. Darwin Read, Ramona BENZ, et al. Evaluation, treatment, and prevention of vitamin D deficiency: an Endocrine Society clinical practice guideline. JCEM. 2010; 96(7):1911-. :33 VITAMIN B-12 (CYANOCOBALAMIN) Comments: PATIENT WAS FASTINGPERFORMED BY: CB [facility] Mdfopq9070 [address] RoadDublin [place] [id number] (60288) Vitamin B12 376 pg/mL (Normal) Range: 211-946 :33 LIPID PANEL (08501) Comments: PATIENT WAS FASTINGPERFORMED BY: CB [facility] Hpiorr[address] [facility] [id number] LDL/HDL Ratio 1.8 {ratio_units} (Normal) Range: 0.0-3.2 LDL Cholesterol Calc 131 mg/dL (Abnormal) Range: 0-99 HDL Cholesterol 74 mg/dL (Normal) Comments: According to ATP-III Guidelines, HDL-C >59 mg/dL is considered anegative risk factor for CHD. VLDL Cholesterol Jerald 14 mg/dL (Normal) Range: 5-40 Triglycerides 72 mg/dL (Normal) Range: 0-149 Cholesterol, Total 219 mg/dL (Abnormal) Range: 100-199 72-Pqk-03197:33 CBC WITH MANUAL DIFF Comments: PATIENT WAS FASTINGPERFORMED BY: [facility] Afevof[address] [facility] [id number] Information: [id number] (29598) Immature Grans (Abs) 0.0 {x10E3/uL} (Normal) Range: [...] 3.77-5.28 WBC 4.5 {x10E3/uL} (Normal) Range: 3.4-10.8 :33 METABOLIC PANEL, COMPREHENSIVE Comments: PATIENT WAS FASTINGPERFORMED BY: LabCoVirtua MarltonQewmbw86[address] [facility] [id number] (98882) ALT (SGPT) 14 [iU]/L (Normal) Range: 0-32 [...] TROPONIN, QUANTITATIVE Comments: PATIENT WAS FASTINGPERFORMED BY: [facility] [facility] [id number] (aka Troponin I) (61790) Troponin I <0.01 ng/mL (Normal) Range: 0.00-0.04 :33 TSH (68415) Comments: PATIENT WAS FASTINGPERFORMED BY: [facility] Kzvfod[address] [facility] [id number] TSH 2.150 {uIU/mL} (Normal) Range: 0.450-4.500 25-Dnd-940373:42 URINE MARIA GUADALUPE CULTURE-SAPNA COL Comments: PATIENT NOT FASTINGPERFORMED BY: [place] [id number] [facility] [id number] Information: SRC:[facility] [id number] COUNT (53148) Result 1 MUG (Normal) Comments: Mixed urogenital flora6,000 Colonies/mL Urine Culture,Comprehensive Final report (Normal) :52 Microscopic Examination Comments: PATIENT WAS FASTINGPERFORMED BY: [facility] [facility] [id number] Bacteria Few (Normal) Mucus Threads Present (Normal) Epithelial Cells (non renal) 0-10 {/hpf} (Normal) Range: 0 - 10 RBC 0-3 {/hpf} (Normal) Range: 0 - 3 WBC 11-30 {/hpf} (Abnormal) Range: 0 - 5 :52 T3, FREE (TRIDOTHYRONINE) (44057) Comments: PATIENT WAS FASTINGPERFORMED BY: [facility] [facility] [id number] Triiodothyronine,Free,Serum 2.4 pg/mL (Normal) Range: 2.0-4.4 :52 T4, FREE (THYROXINE) (60435) Comments: PATIENT WAS FASTINGPERFORMED BY: [facility] [facility] [id number] T4,Free(Direct) 1.06 ng/dL (Normal) Range: 0.82-1.77 :52 Creatine Kinase Total (17318) Comments: PATIENT WAS FASTINGPERFORMED BY: [employer] Iksdgs[address] [facility] [id number] Creatine Kinase,Total,Serum 119 U/L (Normal) Range: 24-173 :52 URINALYSIS, W/ MICRO (02624) Comments: PATIENT WAS FASTINGPERFORMED BY: [facility] Ekgept[address] [facility] [id number] Microscopic Examination See below: (Normal) Nitrite, Urine Negative (Normal) Urobilinogen,Semi-Qn 0.2 mg/dL (Normal) Range: 0.0-1.9 Bilirubin Negative (Normal) Occult Blood Negative (Normal) Ketones Negative (Normal) Glucose Negative (Normal) Protein Negative (Normal) WBC Esterase 2+ (Abnormal) Appearance Clear (Normal) Urine-Color Yellow (Normal) pH 6.0 (Normal) Range: 5.0-7.5 Specific [place] 1.014 (Normal) Range: 1.005-1.030 :52 LIPID PANEL (39115) Comments: PATIENT WAS FASTINGPERFORMED BY: [employer] Tnswli[address] [facility] [id number] LDL/HDL Ratio 3.2 {ratio_units} (Normal) Range: 0.0-3.2 LDL Cholesterol Calc 125 mg/dL (Abnormal) Range: 0-99 HDL Cholesterol 39 mg/dL (Abnormal) Comments: According to ATP-III Guidelines, HDL-C >59 mg/dL is considered anegative risk factor for CHD. VLDL Cholesterol Jerald 17 mg/dL (Normal) Range: 5-40 Cholesterol, Total 181 mg/dL (Normal) Range: 100-199 Triglycerides 84 mg/dL (Normal) Range: 0-149 :52 Vitamin D Hydroxy (38753) Comments: PATIENT WAS FASTINGPERFORMED BY: TookitakiVirtua MarltonMxulzp33[address] [facility] [id number] Vitamin D, 25-Hydroxy 44.9 ng/mL (Normal) Range: 30.0-100.0 Comments: Vitamin D deficiency has been defined by the [place] of[place]icine and an Endocrine Society practice guideline as alevel of serum 25-OH vitamin D less than 20 ng/mL (1,2).The Endocrine Society went on to further define vitamin Dinsufficiency as a level between 21 and 29 ng/mL (2).1. IOM ([place] of Medicine). 2010. Dietary reference intakes for calcium and D. [place]: The National Academies Press.2. Bernardo MF, Darwin ANGELO, Ramona BENZ, et al. Evaluation, treatment, and prevention of vitamin D deficiency: an Endocrine Society clinical practice guideline. JCEM. 2010; 96(7):1911-30. :52 VITAMIN B-12 (CYANOCOBALAMIN) Comments: PATIENT WAS FASTINGPERFORMED BY: [facility] [id number] ([id number]) Vitamin B12 290 pg/mL (Normal) Range: 211-946 :52 EBV Panel (38786) Comments: PATIENT WAS FASTINGPERFORMED BY: [facility] [facility] [id number] Interpretation: SPRCS (Normal) Comments: EBV Interpretation Chart [...] <0.9 Equivocal 0.9 - 1.0 Positive >1.0 37-Rhq-66478:52 CBC WITH MANUAL DIFF Comments: PATIENT WAS FASTINGPERFORMED BY: [facility] [id number] Information: [id number] ([id number]) Immature Grans (Abs) 0.0 {x10E3/uL} (Normal) Range: [...] of these values in the reference population. :52 METABOLIC PANEL, COMPREHENSIVE Comments: PATIENT WAS FASTINGPERFORMED BY: [facility] [id number] ([id number]) ALT (SGPT) 16 [iU]/L (Normal) Range: 0-32 [...] 93 mg/dL (Normal) Range: 65-99 :52 TSH (61081) Comments: PATIENT WAS FASTINGPERFORMED BY: [facility] [address] [place] [id number] TSH 2.110 {uIU/mL} (Normal) Range: 0.450-4.500 :52 SED RATE ERYTHROCYTE (30419) Comments: PATIENT WAS FASTINGPERFORMED BY: [facility] Rolktp[address] [id number] Sedimentation Rate-Westergren 27 mm/h (Normal) Range: 0-40 :52 C-REACTIVE PROTEIN (01096) Comments: PATIENT WAS FASTINGPERFORMED BY: [facility] [facility] [place] [id number] C-Reactive Protein, Quant 59.8 mg/L (Abnormal) Range: 0.0-4.9 5-Ckx-271545:41 DEXA BONE DENSITY STUDY (HP) Radiology Report [...] Rosales M.D.June 18, 2012 at 1:43:18 PM [id number] Signed GP/GP If you are the referring physician and would like to consult with theradiologist who provided this interpretation, please contact Viry Veliz at [phone]. If this radiologist is unavailable, youwill be directed to another radiologist to assist. If you are a patient with a question regarding this report, pleasecont actyour referring physician directly. Professional Interpretation Provided By: [employer], Phone , These documents contain legally protected [...] or destructionofthese documents. Dictated on 06/18/12 1304 Niki Acuna MDribed on 06/18/12 1345 by ITS IMPORTSign by Eliel Rosales MD on 06/18/12 1346 Sign by: Eliel Rosales MD 1-Ofj-990073:40 BILAT SCRN DIGITAL & CAD Radiology Report [...] Rosales M.D.June 18, 2012 at 12:14:10 PM [id number] Signed GP/GP If you are the referrin g physician and would like to consult with theradiologist who provided this interpretation, please contact Viry Veliz at [phone]. If this radiologist is unavailable, youwill be directe d to another radiologist to assist. If you are a patient with a question regarding this report, pleasecontactyour referring physician directly. Professional Interpretation Provided By: [employer], Phon e , These documents contain legally protected and [...] destructionofthese documents. Dictated on 06/18/12 1042 by Gerry Rosales MDscribed on 06/18/12 1226 by ITS IMPORTSign by Eliel Rosales MD on 06/18/12 1227 Sign by: Eliel Rosales MD 3-Axk-821239:40 PELVIC (NON ) Radiology Report See Note [...] Rosales M.D.June 18, 2012 at 1:52:03 PM [id number] Signed GP/GP If you are the referring physician and would like to consult with theradiologist who provid ed this interpretation, please contact Viry Veliz at [phone]. If this radiologist is unavailable, youwill be directed to another radiologist to assist. If you are a patient with a ques tion regarding this report, pleasecontactyour referring physician directly. Professional Interpretation Provided By: [employer], Phone , These documents contain legally pr [...] Rosales M.D.June 18, 2012 at 1:52:03 PM [id number] Signed GP/GP If you are the referring physician and would like to consult with theradiologist who provid ed this interpretation, please contact Viry Veliz at [phone]. If this radiologist is unavailable, youwill be directed to another radiologist to assist. If you are a patient with a ques tion regarding this report, pleasecontactyour referring physician directly. Professional Interpretation Provided By: [employer], Phone , These documents contain legally pr [...] doc uments. Dictated on 06/18/12 1059 by Gerry Rosales MDscribed on 06/18/12 1357 by ITS IMPORTSign by Eliel Rosales MD on 06/18/12 135 Sign by: Eliel Rosales MD 89-Dxt-515125:34 L/S SPINE,MIN 4 VIEWS Radiology Report See [...] 08/02/10 1606 Sign by: Andre Antonio MD 8-Wbg-740194:46 Microscopic Examination Comments: PERFORMED BY: [facility] [id number] Bacteria None seen (Normal) Crystal Type Amorphous Sediment (Normal) Crystals Present (Abnormal) Mucus Threads Present (Normal) Epithelial Cells (non renal) 0-10 {/hpf} (Normal) Range: 0 - 10 RBC 0-3 {/hpf} (Normal) Range: 0 - 3 WBC 0-5 {/hpf} (Normal) Range: 0 - 5 3-Rqw-812280:46 Urinalysis, Routine Comments: PERFORMED BY: [facility] [id number] Information: SRC:UR Bilirubin Negative (Normal) Microscopic Examination See below: (Normal) Nitrite, Urine Negative (Normal) Urobilinogen,Semi-Qn 0.2 mg/dL (Normal) Range: 0.0-1.9 Glucose Negative (Normal) Ketones Negative (Normal) Occult Blood Negative (Normal) Appearance Clear (Normal) pH 6.0 (Normal) Range: 5.0-7.5 Protein Negative (Normal) Urine-Color Yellow (Normal) WBC Esterase Trace (Abnormal) Specific [place] 1.023 (Normal) Range: 1.005-1.030 8-Icz-086117:46 Urine Culture,Comprehensive Comments: PERFORMED BY: [facility] [id number] Result 1 MUG (Normal) Comments: Mixed urogenital flora10,000-25,000 colony forming units per mL Urine Final report (Normal) Culture,Comprehensive 3-Hff-060492:18 Urinalysis, Office (28817) UA - LEUKOCYTE ESTERASE Small (Normal) UA - NITRITE Negative (Normal) URINE UROBILINGN SAPNA TIMED Normal mg/dL (Normal) Comments: 0.2 UA - PROTEIN Trace mg/dL (Normal) UA - PH 6.0 (Normal) UA - BLOOD Negative (Normal) UA - SPECIFIC GRAVITY 1.025 (Normal) UA - KETONES Negative mg/dL (Normal) UA - BILIRUBIN Negative (Normal) UA - GLUCOSE Negative (Normal) 31-Uub-901808:02 Microscopic Examination Comments: PATIENT WAS FASTINGPERFORMED BY: [facility] [id number] Bacteria None seen (Normal) Crystal Type Amorphous Sediment (Normal) Crystals Present (Abnormal) Mucus Threads Present (Normal) Epithelial Cells (non renal) >10 {/hpf} (Abnormal) Range: 0 - 10 RBC 0-3 {/hpf} (Normal) Range: 0 - 3 WBC 6-10 {/hpf} (Abnormal) Range: 0 - 5 43-Jrg-55961:03 UNILAT DIA DIGITAL & CAD Radiology Report See Note (Normal) Comments: Exam Number: [id number] UNILATERAL RIGHT DIAGNOSTIC MAMMOGRAM A 90-degree lateral [...] ms werealso examined with computer-aided detection software ([employer] Reported By: ELIEL ROSALES 39-Trf-33779:33 [facility] DIGITAL & CAD Radiology Report See Note (Normal) Comments: Exam Number: [id number] MAMMOGRAM, BILATERAL SCREENING DIGITAL AND CAD HISTORYRoutine [...] mammograms werealso examined with computer-aided detection software ([employer].). Reported By: JONAH ARAYA M.D. 66-Pxg-066381:02 Vitamin D Hydroxy (83926) Comments: PATIENT WAS FASTINGPERFORMED BY: [facility] [id number] Vitamin D, 25-Hydroxy 32.4 ng/mL (Normal) Range: 32.0-100.0 Comments: Recent studies consider the lower limit of 32.0 ng/mL to be athreshold for optimal health.Chilo SR. J Nutr. 2004;135(2):317-22. 65-Fzz-871614:02 LIPID PANEL (30116) Comments: PATIENT WAS FASTINGPERFORMED BY: [facility]akcg[address] [id number] LDL Cholesterol Calc 136 mg/dL (Abnormal) Range: 0-99 LDL/HDL Ratio 2.6 {ratio_units} (Normal) Range: 0.0-3.2 VLDL Cholesterol Jerald 19 mg/dL (Normal) Range: 5-40 HDL Cholesterol 53 mg/dL (Normal) Comments: According to ATP-III Guidelines, HDL-C >59 mg/dL is considered anegative risk factor for CHD. Cholesterol, Total 208 mg/dL (Abnormal) Range: 100-199 Triglycerides 95 mg/dL (Normal) Range: 0-149 77-Dew-496145:02 URINALYSIS, W/ MICRO (55365) Comments: PATIENT WAS FASTINGPERFORMED BY: [facility] [id number] Bilirubin Negative (Normal) Ketones Negative (Normal) Microscopic Examination See below: (Normal) Nitrite, Urine Negative (Normal) Occult Blood Trace (Abnormal) Urobilinogen,Semi-Qn 0.2 mg/dL (Normal) Range: 0.0-1.9 Appearance Cloudy (Abnormal) Glucose Negative (Normal) Protein Trace (Normal) Urine-Color Yellow (Normal) WBC Esterase 1+ (Abnormal) pH 6.0 (Normal) Range: 5.0-7.5 Specific [place] 1.029 (Normal) Range: 1.005-1.030 :02 TSH (58100) Comments: PATIENT WAS FASTINGPERFORMED BY: [facility] [id number] TSH 2.110 {uIU/mL} (Normal) Range: 0.450-4.500 :02 CBC WITH MANUAL DIFF Comments: PATIENT WAS FASTINGPERFORMED BY: [facility] [id number] Information: [id number] (61193) Baso (Absolute) 0.0 {x10E3/uL} (Normal) Range: 0.0-0.2 [...] 3.80-5.10 WBC 4.9 {x10E3/uL} (Normal) Range: 4.0-10.5 04-Mlk-655794:02 METABOLIC PANEL, COMPREHENSIVE Comments: PATIENT WAS FASTINGPERFORMED BY: [facility] Awvamh[address] [id number] (28334) Alkaline Phosphatase, S 57 [iU]/L (Normal) Range: [...] Care Name Dates Details Instructions Hyperlipidemia : Follow up in 1 year or as needed Indication: Hyperlipidemia Hyperlipidemia : Reviewed Lab Indication: Hyperlipidemia Hyperlipidemia : Cholesterol mgmt Indication: Hyperlipidemia Encounter for screening mammogram for breast cancer (Renamed from Encounter for screening mammogram for malignant neoplasm of breast) : Eprescribed prescriptions (G8553) Indication: Encounter for screening mammogram for breast cancer (Renamed from Encounter for screening mammogram for malignant neoplasm of breast) Hyperlipidemia : Reviewed Lab Indication: Hyperlipidemia Elevated [...] without abnormal finding : *Well Female Maintenance ([facility]) Indication: Encounter for gynecological examination without abnormal [...] symptoms in breast : *Well Female Maintenance () Indication: Other signs and symptoms in breast Physical exam, routine : Eprescribed prescriptions (G8553) Indication: Physical exam, routine Depression : Eprescribed prescriptions (G8553) Indication: Depression Other chest pain : Heart Palpitations *: heart palpitations Indication: Other chest pain Hyperlipidemia : Diet, Exercise, and Wt loss Indication: Hyperlipidemia Planned Observations Thin prep Pap (27335) (no STD testing)Indication: Encounter for gynecological examination without abnormal finding On: 12-Vft-18644:11 Request VITAMIN B-12 (CYANOCOBALAMIN) (13357)Indication: B12 deficiency On: :23 Request Vitamin D Hydroxy (04540)Indication: Vitamin D deficiency, unspecified On: :23 Request C-REACTIVE PROTEIN (95683)Indication: Mononucleosis On: :28 Request VITAMIN B-12 (CYANOCOBALAMIN) (43498)Indication: B12 deficiency On: :27 Request Urinalysis, Office (26053)Indication: Lower urinary tract infection On: :25 Request URINE MARIA GUADALUPE CULTURE (SAPNA COL COUNT) (05009)Indication: Lower urinary tract infection On: :25 Request Vitamin D Hydroxy (63941)Indication: Vitamin D deficiency, unspecified On: 2-Uwg-675462:22 Request Planned Procedures B 12 Injection, 1000 mcg (J3420)By: On: 12-Dec-2017 Intent Sveta Sofia DO, DO, Comments: 1 ml given lt dltd lot [id number] exp 06/01 Sveta DEXA SCAN AXIAL SKELETON (86129)By: On: 12-Dec-2017 Sveta Samson DO, DO, Sveta SCREENING DIGITAL TOMOSYNTHESIS OF On: 12-Dec-2017 Intent BREAST (00147)By: Maribell Call B 12 Injection, 1000 mcg (J3420)By: On: 16-Apr-2017 Sveta Samson DO, DO, Comments: vitamin b12 1000mcg injectionlot: [id number]: 06/2018L DELT 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 Sveta ELECTROCARDIOGRAM, COMPLETE (ECG) On: 19-Mar-2017 Intent (79840)By: Sveta Sofia DO Comments: nsr no acute chg Sveta POLANCO MRI BRAIN W/ CONTRAST (75414)By: On: 19-Mar-2017 Sveta Samson DO, DO, Kathleen Spirometry (05866)By: Kimberlyn POLANCO On: 31-Aug-2016 Intent Sveta Colon DO Comments: normal great curve DEXA SCAN AXIAL SKELETON (18000)By: On: 30-Mar-2016 Intent Sveta Sofia DO, DO, Kathleen MAMMOGRAM, SCREENING, BOTH BREAST On: 30-Mar-2016 Intent (10952)By: Sveta Sofia DO, DO, Kathleen Aerosol Treatment (86500)By: Ciara On: 01-Jan-2015 Intent Gala PEÑA DIAGNOSTIC BILATERAL MAMMOGRAM On: 02-Apr-2014 Intent (99091)By: Pau Mcghee DO Comments: right breast pain Spot Compression - RightBy: Taz POLANCO, On: 24-Mar-2014 Intent Pau Garcia MAMMOGRAM, SCREENING, BOTH BREAST On: 24-Mar-2014 Intent (70144)By: Pau Mcghee DO Spirometry (92711)By: Pau Mcghee DO On: 01-Apr-2013 Intent A Comments: good effort and curve normal Pulse Oximetry (54940)By: Taz POLANCO, On: 01-Apr-2013 Intent Pau Garcia Comments: 98 Nuclear Stress Test/Stress On: 01-Apr-2013 Intent SPECT/AdenosineBy: Pau Mcghee DO Comments: knee issues Holter Monitor 24 hrsBy: Taz POLANCO, On: 01-Apr-2013 Intent Pau Garcia Echo CompleteBy: Pau Mcghee DO On: 01-Apr-2013 Intent EKG (58632)By: Pau Mcghee DO On: 01-Apr-2013 Intent Comments: ekg showed normal sinus rhythym, normal axis, no acute st/t wave changes B 12 Injection, 1000 mcg (J3420)By: On: 22-Oct-2012 Intent Pau Mcghee DO Comments: lot: [id number]: 09/25site/route: L deltoid/IMamt: 1mLVIS signed when applicableChelsea, TUBE LANCER MAMMOGRAM, SCREENING, BOTH BREASTS On: 05-Jun-2012 Intent (49731)By: Pau Mcghee DO DXA, BONE DENSITY, AXIAL SKELETON On: 05-Jun-2012 Intent (99760)By: Pau Mcghee DO Ultrasound - PelvisBy: Pau Mcghee DO On: 05-Jun-2012 Intent A Radiology - Lumbar SpineBy: Bonezzi On: 02-Aug-2010 Intent Gala PEÑA MAMMOGRAM, SCREENING, BOTH BREASTS On: 17-Mar-2009 Intent (18218)By: Pau Mcghee DO Planned Medications Vitamin B-12 1000 MCG/ML Injection Solution Ordered: 22-Oct-2012 Pending Pau Mcghee DO Vitamin B-12 1000 MCG/ML Injection Solution Ordered: 16-Apr-2017 Pending Sveta Sofia DO, DO, Kathleen Vitamin B-12 1000 MCG/ML Injection Solution Ordered: 12-Dec-2017 Pending Sveta Sofia DO, DO, Kathleen Instructions Name Dates Details Encounter for screening mammogram for breast cancer (Renamed from Encounter for screening mammogram for malignant neoplasm of breast) : How to access health information online Indication: Encounter for screening mammogram for breast cancer (Renamed from Encounter for screening mammogram for malignant neoplasm of breast) Encounter for screening mammogram for breast cancer (Renamed from Encounter for screening mammogram for malignant neoplasm of breast) : How to access health information online - Detail Indication: Encounter for screening mammogram for breast cancer (Renamed from Encounter for screening mammogram for malignant neoplasm of breast) Encounter for screening mammogram for breast cancer (Renamed from Encounter for screening mammogram for malignant neoplasm of breast) : Patient Instructions Indication: Encounter for screening mammogram for breast cancer (Renamed from Encounter for screening mammogram for malignant neoplasm of breast) Current nonsmoker (Renamed from Current non-smoker) : [...] : Patient Instructions Indication: PostMenopausal Bleeding Encounters Office Visit On: 12-Dec-2017 11:59 Encounter Reason: Follow up tests - Date: (12/05/17 labs)., [ADDITIONAL REASON] Follow up for chronic medical issues - The patient feels well with minor complai End: 12-Dec-2017 13:14 nts, has decreased energy level and is sleeping poorly. Patient has been compliant with instructions. Current medication use: no side effects. Patient sleeps 5 hours per night. Impact of disease: no overall impact. Nutrition: inappropriate diet. Encounter Diagnosis: Encounter for screening mammogram for breast cancer (Renamed from Encounter for screening mammogram for malignant neoplasm of breast), Influenza vaccination declined (Renamed from Refused influenza vaccine), B12 deficiency, Hyperlipidemia, History of colon polyps, Postmenopausal (Renamed from Postmenopausal status), Tinnitus, bilateral [facility] Phone Encounter On: 28-Nov-2017 11:36 Encounter Diagnosis: [...] is not using a End: 30-Mar-2016 12:09 ky method of contraception at this time. Patient [...] her). Patient has been compliant with instructions. Real End: 12-Aug-2013 22:55 t medication use: no [...] include other (still fatigued. No uti symptoms. Hasnt taken all her atb for uti- supposed to ta End: 22-Oct-2012 9:58 ke it bid and couple of the days only took it once daily- has 3 tabs left.). Note for Follow up to discuss laboratory test results: hasnt felt great all summer- feels foggy- flu like sx initially- - s till feeling some fatigue and castillo the candle at both ends- her tests with opal were neg- nomyalgia - still some vertigo [...] Follow up for chronic medical issues: seeing opal tomorrow- she has put it off - [...] v icodin rarely when bad. 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 no radiculopathy. no b/b incontinence. hard to [...] End: 15-Mar-2009 10:45 Payers Magali LEVI/Houston Gardner; a guarantor
--- OUTSIDE RECORDS SUMMARY | 2018-05-01 08:28 | XMS RPT_ITS | Continuity of Care Document ---
:1960 Author Organization [facility] Address [address] [facility] [address] [place] [address] Phone Care Team Providers Name Role Phone Sveta Sofia DO Unavailable Isidoro Mas MD Unavailable Renzo Corral Unavailable Dr. Terrence Wright Unavailable EVERT Yee Unavailable Unavailable Maribell Call Unavailable Unavailable Unavailable Unavailable Problems Name [...] Nasonex 50 MCG/ACT Nasal Suspension 1 (one) [place] each nostril daily for 0 days Quantity: [...] Comments:This order discontinued per [facility]. VITAMIN D, 82256NEHO (Oral Capsule) 1 (one) Capsule q week [...] W/WO Contrast Result: Comments: See Note; NOTES: [facility] Imaging Services [address] [place] [address] Brain W/WO Contrast MR#: [id number] Acct: [id number] Name: ADILIA GARDNER Rep #: [id number] : 1960 F 56 From: Darlene Perry MD PCP: Sveta Sofia DO Status: REG CLI Study: Brain W/WO Contrast Date of Exam: 03/29/17 Exam# [id number] Ordering Dr: Sveta Sofia DO STUDY: MRI [...] Service support , CC: Sveta Sofia DO Precipitator Operator: Signed 02-Apr-2014 Bilat Diag Digital AND CAD Result: Comments: See Note; NOTES: [facility] Imaging Services [address] [place] [address] Breast Imaging Report MR#: [id number] Acct: [id number] Name: ADILIA GARDNER Rep #: [id number] : 1960 F 53 From: Eliel Rosales MD PCP: Pau Mcghee DO Status: REG CLI Study: Bilat Diag Digital AND CAD Date of Exam: 04/02/14 Exam# [id number] Ordering Dr: Pau Mcghee DO MAMMOGRAPHY - [...] Eliel Rosales MD at 15:22 EST Tel [phone], Service support [phone], CC: Pau Mcghee DO Precipitator Operator: Signed 16-Apr-2013 Echocardiogram Complete Result: Comments: See Note; NOTES: [facility] Cardiovascular Services [address] [place] [address] Echo Complete 04/16/13 0921 MR#: [id number] Acct: [id number] Name: Landon GARDNER Rep #: [id number] : 1960 52 From: Zhou Childs MD Attending Dr: Pau Mcghee DO Status: REG CLI Ordering Dr: Pau Mcghee DO Date: 04/16/13 Location: [facility] Sex: F C Admitted: Salvador bateman This [...] Performed By: Pia Escalante, RDCS : Pau Mcghee DO Date Dictated: 04/16/13920 Date Transcribed: 04/16/13 1103 Precipitator Operator: Signed Family History Unknown Family Member [...] Status: Active 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 Non Smoker/No Tobacco Use Status: [...] Date Description Value Details :29 LIPID PANEL (36244) Comments: PATIENT WAS FASTINGPERFORMED BY: [facility] Xkcwni9426 [facility] [id number] LDL/HDL Ratio 2.1 {ratio} (Normal) Range: 0.0-3.2 [...] Panel, Comprehensive Comments: PATIENT WAS FASTINGPERFORMED BY: [employer] [facility] [id number] (49964) ALT (SGPT) 12 [iU]/L (Normal) Range: 0-32 [...] 6-24 Glucose 86 mg/dL (Normal) Range: 65-99 68-Kfi-51037:29 CBC WITH MANUAL DIFF (64803) Comments: PATIENT WAS FASTINGPERFORMED BY: LabSuzhou [employer] Baby.[facility]Nov[facility] [id number] Immature Grans (Abs) 0.0 {x10E3/uL} (Normal) Range: [...] 3.77-5.28 WBC 4.0 {x10E3/uL} (Normal) Range: 3.4-10.8 96-Dmq-27824:29 VITAMIN B-12 (CYANOCOBALAMIN) Comments: PATIENT WAS FASTINGPERFORMED BY: [facility] [facility] [id number] (32119) Vitamin B12 349 pg/mL (Normal) Range: 232-1245 86-Ykv-837980:06 Microscopic Examination Comments: PATIENT WAS FASTINGPERFORMED BY: [employer] [facility] [place] [id number] Bacteria None seen (Normal) Mucus Threads Present (Normal) Epithelial Cells (non renal) 0-10 {/hpf} (Normal) Range: 0 - 10 RBC 0-2 {/hpf} (Normal) Range: 0 - 2 WBC 0-5 {/hpf} (Normal) Range: 0 - 5 86-Ugt-996219:06 TSH (23323) Comments: PATIENT WAS FASTINGPERFORMED BY: [facility]6370 [facility] [id number] TSH 2.200 {uIU/mL} (Normal) Range: 0.450-4.500 01-Zlv-675082:06 URINALYSIS, W/ MICRO (84703) Comments: PATIENT WAS FASTINGPERFORMED BY: [facility]6370 [facility] [id number] Microscopic Examination See below: (Normal) Comments: Microscopic was indicated and was performed. Nitrite, Urine Negative (Normal) Urobilinogen,Semi-Qn 0.2 mg/dL (Normal) Range: 0.2-1.0 Bilirubin Negative (Normal) Occult Blood Negative (Normal) Ketones Negative (Normal) Glucose Negative (Normal) Protein Negative (Normal) WBC Esterase 1+ (Abnormal) Appearance Clear (Normal) Urine-Color Yellow (Normal) pH 5.5 (Normal) Range: 5.0-7.5 Specific [place] 1.024 (Normal) Range: 1.005-1.030 76-Yey-330621:06 MICROALBUMIN: CREATININE RATIO Comments: PATIENT WAS FASTINGPERFORMED BY: [facility]6370 [facility] [id number] (80535) AND (25326) Alb/Creat Ratio 4.6 {mg/g_creat} (Normal) Range: 0.0-30.0 Albumin, Urine 7.3 ug/mL (Normal) Creatinine, Urine 160.4 mg/dL (Normal) 27-Hew-980459:06 METABOLIC PANEL, COMPREHENSIVE Comments: PATIENT WAS FASTINGPERFORMED BY: [facility]6370 [facility] [id number] (21162) ALT (SGPT) 22 [iU]/L (Normal) Range: 0-32 [...] Glucose, Serum 90 mg/dL (Normal) Range: 65-99 25-Gbv-078345:06 CBC W/AUTO DIFF WBC (22732) Comments: PATIENT WAS FASTINGPERFORMED BY: LabCoRobert Wood Johnson University Hospital at HamiltonSxbksm2981 [facility] [id number] Immature Grans (Abs) 0.0 {x10E3/uL} (Normal) Range: [...] 3.77-5.28 WBC 4.6 {x10E3/uL} (Normal) Range: 3.4-10.8 49-Frw-075039:06 VITAMIN B-12 (CYANOCOBALAMIN) Comments: PATIENT WAS FASTINGPERFORMED BY: Nomanini LabMedopadRobert Wood Johnson University Hospital at HamiltonJkulwq7993 [facility] [id number] (47343) Vitamin B12 332 pg/mL (Normal) Range: 232-1245 08-Xjv-400931:06 LIPID PANEL (14141) Comments: PATIENT WAS FASTINGPERFORMED BY: LabCoRobert Wood Johnson University Hospital at HamiltonGioafa4375 [facility] [id number]; fu 3-5 KF LDL/HDL Ratio 2.1 {ratio_units} [...] Cholesterol, Total 232 mg/dL (Abnormal) Range: 100-199 71-Qtp-75787:04 HPV automatic Comments: Source.............Cervix;EndocervixNo. of containers..01 CYTYC Thin Prep VialPATIENT NOT FASTINGPERFORMED BY: WB [facility] Kevin Perry [place] [id number] BY: =G [facility] (35100) rp Kevin Perry [place] [id number] Information: [id number] HPV, high-risk Negative Comments: This high-risk HPV [...] Cytot echnologist (ASCP) :41 HgA1C , Office (24161) HgA1C , Office 5.4 % (Normal) Range: 4.6 - 7.1 :32 Urinalysis, Office (87426) UA - LEUKOCYTE ESTERASE Moderate (Normal) UA [...] COLON BIOPSY (CHOOSE See Note (Normal) Comments: [facility] Rxotudawbf[address] [place], [address] 0 SITE) Comments: Patient: ADILIA GARDNER : 1960 (55/F) Acct Num: [id number] Phys: Terrence Wright Unit Num: [id number] Loc: [facility] Specimen: [id number] Received: 10/15/15 - 1507 Spec Type: COLON [...] o ne cassette. / SJ:jericho 10/19/15 TC:1 CPT:84940 x2 HEADER OPERATION: Colonoscopy with biopsies PRE-OP DIAGNOSIS: Screening/polyp TISSUE SUBMITTED: A - Cecum polyp biopsies, rule out adenoma, B - Sigmoid/rectum polyps biopsies, rule out adenoma MICROSCOPIC DESCRIPTION Slides are reviewed. MICROSCOPIC DIAGNOSIS A. Cecum polyp, biopsy: Fragments of tubular adenoma. B. Sigmo id/rectum polyps, biopsy: Tubular adenoma. Hyperplastic polyp. SJ:jericho 10/20/15 Signed Davie Marcano 10/20/15 <signature on file> :34 LIPID PANEL (84549) Comments: PATIENT WAS FASTINGPERFORMED BY: [facility] Fpeyjm2684 [facility] [id number]; will review on 03/30 LDL/HDL Ratio 1.9 [...] 202 mg/dL (Abnormal) Range: 100-199 :34 CALCIFIDIOL (22546) VIT D 25 Comments: PATIENT WAS FASTINGPERFORMED BY: [facility]6370 [facility] [id number] Vitamin D, 25-Hydroxy 34.0 ng/mL (Normal) Range: 30.0-100.0 Comments: Vitamin D deficiency has been defined by the [place] of[place]icine and an Endocrine Society practice guideline as alevel of serum 25-OH vitamin D less than 20 ng/mL (1,2).The Endocrine Society went on to further define vitamin Dinsufficiency as a level between 21 and 29 ng/mL (2).1. IOM ([place] of Medicine). 2010. Dietary reference intakes for calcium and D. [place]: The National Academies Press.2. Bernardo MF, Darwin ANGELO, Ramona BENZ, et al. Evaluation, treatment, and prevention of vitamin D deficiency: an Endocrine Society clinical practice guideline. JCEM. 2010; 96(7):1911-30. :34 VITAMIN B-12 (CYANOCOBALAMIN) Comments: PATIENT WAS FASTINGPERFORMED BY: [facility] Kbzfhc6178 [facility] [id number] (15520) Vitamin B12 399 pg/mL (Normal) Range: 211-946 30-Nwy-165417:47 Pathology Report Comments: PERFORMED BY: [facility]CYT [facility] Cyto Zfphb21409 [facility] [id number] BY: [facility] Dermatopathology Qiwbicz[address] [id number] Information: [id number] See MATER Comments: Material submitted: .SHAVE BIOPSY [...] IS BISECTED AND SUBMITTED INTOTO.XJW/HAOSPathologist provided ICD-9:173.52CPT .952924 36-Grx-506057:42 TSH (32779) Comments: PATIENT WAS FASTINGPERFORMED BY: [facility]Sturg[facility]6370 [facility] [id number] TSH 2.050 {uIU/mL} (Normal) Range: 0.450-4.500 10-Bns-037509:42 CBC WITH MANUAL DIFF Comments: PATIENT WAS FASTINGPERFORMED BY: [facility]Sturg[facility] Hospital6370 [facility] [id number] Information: [id number] (15018) Immature Grans (Abs) 0.0 {x10E3/uL} (Normal) Range: [...] 3.77-5.28 WBC 4.2 {x10E3/uL} (Normal) Range: 3.4-10.8 79-Awr-808884:42 Metabolic Panel, Comprehensive Comments: PATIENT WAS FASTINGPERFORMED BY: LabCoRobert Wood Johnson University Hospital at HamiltonTilkpq4501 [facility] [id number] (15609) ALT (SGPT) 16 [iU]/L (Normal) Range: 0-32 [...] Glucose, Serum 87 mg/dL (Normal) Range: 65-99 47-Skz-285062:42 Lipid Panel (77405) Comments: PATIENT WAS FASTINGPERFORMED BY: [facility] IncNov[facility] Rehabilitation Hospital [id number] LDL/HDL Ratio 2.4 {ratio_units} (Normal) Range: 0.0-3.2 [...] Cholesterol, Total 212 mg/dL (Abnormal) Range: 100-199 23-Jvt-498056:42 CALCIFEDIOL (35509) Comments: PATIENT WAS FASTINGPERFORMED BY: [facility] [id number] Vitamin D, 25-Hydroxy 42.0 ng/mL (Normal) Range: 30.0-100.0 Comments: Vitamin D deficiency has been defined by the [place] of[place]icine and an Endocrine Society practice guideline as alevel of serum 25-OH vitamin D less than 20 ng/mL (1,2).The Endocrine Society went on to further define vitamin Dinsufficiency as a level between 21 and 29 ng/mL (2).1. IOM ([place] of [place]). 2010. Dietary reference intakes for calcium and D. [place]: The National Academies Press.2. Darwin Read, Ramona BENZ, et al. Evaluation, treatment, and prevention of vitamin D deficiency: an Endocrine Society clinical practice guideline. JCEM. 2010; 96(7):1911-30. :42 Vitamin B-12 (cyanocobalamin) Comments: PATIENT WAS FASTINGPERFORMED BY: CB [facility] Bcuvjv8394 [address] RoadDublin [place] [id number] (14308) Vitamin B12 518 pg/mL (Normal) Range: 211-946 :33 Vitamin D Hydroxy (12972) Comments: PATIENT WAS FASTINGPERFORMED BY: CB [facility] Fidzxc7585 [address] RoadDublin [place] [id number] Vitamin D, 25-Hydroxy 34.7 ng/mL (Normal) Range: 30.0-100.0 Comments: Vitamin D deficiency has been defined by the [place] of[place]icine and an Endocrine Society practice guideline as alevel of serum 25-OH vitamin D less than 20 ng/mL (1,2).The Endocrine Society went on to further define vitamin Dinsufficiency as a level between 21 and 29 ng/mL (2).1. IOM ([place] of [place]). 2010. Dietary reference intakes for calcium and D. [place]: The National Academies Press.2. Darwin Read, Ramona BENZ, et al. Evaluation, treatment, and prevention of vitamin D deficiency: an Endocrine Society clinical practice guideline. JCEM. 2010; 96(7):1911-. :33 VITAMIN B-12 (CYANOCOBALAMIN) Comments: PATIENT WAS FASTINGPERFORMED BY: CB [facility] Rbtlnr0068 [address] RoadDublin [place] [id number] (91328) Vitamin B12 376 pg/mL (Normal) Range: 211-946 :33 LIPID PANEL (12444) Comments: PATIENT WAS FASTINGPERFORMED BY: CB [facility] Sduobo9524 [facility] [id number] LDL/HDL Ratio 1.8 {ratio_units} (Normal) Range: 0.0-3.2 LDL Cholesterol Calc 131 mg/dL (Abnormal) Range: 0-99 HDL Cholesterol 74 mg/dL (Normal) Comments: According to ATP-III Guidelines, HDL-C >59 mg/dL is considered anegative risk factor for CHD. VLDL Cholesterol Jerald 14 mg/dL (Normal) Range: 5-40 Triglycerides 72 mg/dL (Normal) Range: 0-149 Cholesterol, Total 219 mg/dL (Abnormal) Range: 100-199 11-Tke-19166:33 CBC WITH MANUAL DIFF Comments: PATIENT WAS FASTINGPERFORMED BY: [facility] Uathnq6768 [facility] [id number] Information: [id number] (51748) Immature Grans (Abs) 0.0 {x10E3/uL} (Normal) Range: [...] PANEL, COMPREHENSIVE Comments: PATIENT WAS FASTINGPERFORMED BY: LabCoRobert Wood Johnson University Hospital at HamiltonShetpf4401 [facility] [id number] (39387) ALT (SGPT) 14 [iU]/L (Normal) Range: 0-32 [...] TROPONIN, QUANTITATIVE Comments: PATIENT WAS FASTINGPERFORMED BY: [facility]6370 [facility] [id number] (aka Troponin I) (80856) Troponin I <0.01 ng/mL (Normal) Range: 0.00-0.04 :33 TSH (01728) Comments: PATIENT WAS FASTINGPERFORMED BY: LabFreeman [facility] Dphrrj8308 [facility] [id number] TSH 2.150 {uIU/mL} (Normal) Range: 0.450-4.500 77-Hxl-522328:42 URINE MARIA GUADALUPE CULTURE-SAPNA COL Comments: PATIENT NOT FASTINGPERFORMED BY: [place] 0328770 [facility] [id number] Information: SRC:[facility] [id number] COUNT (55185) Result 1 MUG (Normal) Comments: Mixed urogenital flora6,000 Colonies/mL Urine Culture,Comprehensive Final report (Normal) :52 Microscopic Examination Comments: PATIENT WAS FASTINGPERFORMED BY: [facility]6370 [facility] [id number] Bacteria Few (Normal) Mucus Threads Present (Normal) Epithelial Cells (non renal) 0-10 {/hpf} (Normal) Range: 0 - 10 RBC 0-3 {/hpf} (Normal) Range: 0 - 3 WBC 11-30 {/hpf} (Abnormal) Range: 0 - 5 :52 T3, FREE (TRIDOTHYRONINE) (78179) Comments: PATIENT WAS FASTINGPERFORMED BY: [facility]6370 [facility] [id number] Triiodothyronine,Free,Serum 2.4 pg/mL (Normal) Range: 2.0-4.4 :52 T4, FREE (THYROXINE) (55113) Comments: PATIENT WAS FASTINGPERFORMED BY: [facility]6370 [facility] [id number] T4,Free(Direct) 1.06 ng/dL (Normal) Range: 0.82-1.77 :52 Creatine Kinase Total (44063) Comments: PATIENT WAS FASTINGPERFORMED BY: [facility] Vnkbaf9409 [facility] [id number] Creatine Kinase,Total,Serum 119 U/L (Normal) Range: 24-173 :52 URINALYSIS, W/ MICRO (79174) Comments: PATIENT WAS FASTINGPERFORMED BY: [facility] Kaueeh8335 [facility] [id number] Microscopic Examination See below: (Normal) Nitrite, Urine Negative (Normal) Urobilinogen,Semi-Qn 0.2 mg/dL (Normal) Range: 0.0-1.9 Bilirubin Negative (Normal) Occult Blood Negative (Normal) Ketones Negative (Normal) Glucose Negative (Normal) Protein Negative (Normal) WBC Esterase 2+ (Abnormal) Appearance Clear (Normal) Urine-Color Yellow (Normal) pH 6.0 (Normal) Range: 5.0-7.5 Specific [place] 1.014 (Normal) Range: 1.005-1.030 :52 LIPID PANEL (21636) Comments: PATIENT WAS FASTINGPERFORMED BY: [facility] Ymhcea8681 [facility] [id number] LDL/HDL Ratio 3.2 {ratio_units} (Normal) Range: 0.0-3.2 LDL Cholesterol Calc 125 mg/dL (Abnormal) Range: 0-99 HDL Cholesterol 39 mg/dL (Abnormal) Comments: According to ATP-III Guidelines, HDL-C >59 mg/dL is considered anegative risk factor for CHD. VLDL Cholesterol Jerald 17 mg/dL (Normal) Range: 5-40 Cholesterol, Total 181 mg/dL (Normal) Range: 100-199 Triglycerides 84 mg/dL (Normal) Range: 0-149 :52 Vitamin D Hydroxy (21064) Comments: PATIENT WAS FASTINGPERFORMED BY: [facility] LabsRobert Wood Johnson University Hospital at HamiltonKppyma7196 [facility] [id number] Vitamin D, 25-Hydroxy 44.9 ng/mL (Normal) Range: 30.0-100.0 Comments: Vitamin D deficiency has been defined by the [place] of[place]icine and an Endocrine Society practice guideline as alevel of serum 25-OH vitamin D less than 20 ng/mL (1,2).The Endocrine Society went on to further define vitamin Dinsufficiency as a level between 21 and 29 ng/mL (2).1. IOM ([place] of [place]). 2010. Dietary reference intakes for calcium and D. [place]: The National Academies Press.2. Bernardo MF, Darwin ANGELO, Ramona BENZ, et al. Evaluation, treatment, and prevention of vitamin D deficiency: an Endocrine Society clinical practice guideline. JCEM. 2010; 96(7):1911-30. :52 VITAMIN B-12 (CYANOCOBALAMIN) Comments: PATIENT WAS FASTINGPERFORMED BY: [facility] IncNov[facility] Rehabilitation Hospital [id number] (72425) Vitamin B12 290 pg/mL (Normal) Range: 211-946 :52 EBV Panel (31013) Comments: PATIENT WAS FASTINGPERFORMED BY: [employer] [facility] [id number] Interpretation: SPRCS (Normal) Comments: EBV Interpretation Chart [...] <0.9 Equivocal 0.9 - 1.0 Positive >1.0 29-Riz-81878:52 CBC WITH MANUAL DIFF Comments: PATIENT WAS FASTINGPERFORMED BY: [facility]St[facility]6370 [facility] [id number] Information: [id number] (12857) Immature Grans (Abs) 0.0 {x10E3/uL} (Normal) Range: [...] COMPREHENSIVE Comments: PATIENT WAS FASTINGPERFORMED BY: [facility] Nstkff7696 [facility] [id number] (23926) ALT (SGPT) 16 [iU]/L (Normal) Range: 0-32 [...] 93 mg/dL (Normal) Range: 65-99 :52 TSH (17594) Comments: PATIENT WAS FASTINGPERFORMED BY: [facility] Sprxcn8801 [address] Roadblin [place] [id number] TSH 2.110 {uIU/mL} (Normal) Range: 0.450-4.500 :52 SED RATE ERYTHROCYTE (71045) Comments: PATIENT WAS FASTINGPERFORMED BY: [facility] Tavglo3242 [facility] [id number] Sedimentation Rate-Westergren 27 mm/h (Normal) Range: 0-40 :52 C-REACTIVE PROTEIN (19157) Comments: PATIENT WAS FASTINGPERFORMED BY: [facility] Yiolpq1184 [address] [facility]in [place] [id number] C-Reactive Protein, Quant 59.8 mg/L (Abnormal) Range: 0.0-4.9 9-Ujm-467685:41 DEXA BONE DENSITY STUDY (HP) Radiology Report [...] Rosales M.D.June 18, 2012 at 1:43:18 PM [id number] Signed GP/GP If you are the referring physician and would like to consult with theradiologist who provided this interpretation, please contact Viry Veliz at [phone]. If this radiologist is unavailable, youwill be directed to another radiologist to assist. If you are a patient with a question regarding this report, pleasecont actyour referring physician directly. Professional Interpretation Provided By: Miso, Phone , These documents contain legally protected [...] 06/18/12 1346 Sign by: Eliel Rosales MD 3-Yrm-965214:40 BILAT SCRN DIGITAL & CAD Radiology Report [...] Rosales M.D.June 18, 2012 at 12:14:10 PM [id number] Signed GP/GP If you are the referrin g physician and would like to consult with theradiologist who provided this interpretation, please contact Viry Veliz at [phone]. If this radiologist is unavailable, youwill be [...] 06/18/12 1227 Sign by: Eliel Rosales MD 5-Mua-237509:40 PELVIC (NON ) Radiology Report See Note [...] Rosales M.D.June 18, 2012 at 1:52:03 PM [id number] Signed GP/GP If you are the referring physician and would like to consult with theradiologist who provid ed this interpretation, please contact Viry Veliz at [phone]. If this radiologist is unavailable, youwill be directed to another radiologist to assist. If you are a patient with a ques tion regarding this report, pleasecontactyour referring physician directly. Professional Interpretation Provided By: Miso, Phone , These documents contain legally pr [...] Rosales M.D.June 18, 2012 at 1:52:03 PM [id number] Signed GP/GP If you are the referring physician and would like to consult with theradiologist who provid ed this interpretation, please contact Viry Veliz at [phone]. If this radiologist is unavailable, youwill be directed to another radiologist to assist. If you are a patient with a ques tion regarding this report, pleasecontactyour referring physician directly. Professional Interpretation Provided By: Miso, Phone , These documents contain legally pr [...] 06/18/12 135 Sign by: Eliel Rosales MD 38-Odh-178913:34 L/S SPINE,MIN 4 VIEWS Radiology Report See [...] 08/02/10 1606 Sign by: Andre Antonio MD 5-Oir-046262:46 Microscopic Examination Comments: PERFORMED BY: [facility]6370 [facility] [id number] Bacteria None seen (Normal) Crystal Type Amorphous Sediment (Normal) Crystals Present (Abnormal) Mucus Threads Present (Normal) Epithelial Cells (non renal) 0-10 {/hpf} (Normal) Range: 0 - 10 RBC 0-3 {/hpf} (Normal) Range: 0 - 3 WBC 0-5 {/hpf} (Normal) Range: 0 - 5 4-Ofm-090975:46 Urinalysis, Routine Comments: PERFORMED BY: [facility] [employer] [facility] [id number] Information: SRC:UR Bilirubin Negative (Normal) Microscopic Examination See below: (Normal) Nitrite, Urine Negative (Normal) Urobilinogen,Semi-Qn 0.2 mg/dL (Normal) Range: 0.0-1.9 Glucose Negative (Normal) Ketones Negative (Normal) Occult Blood Negative (Normal) Appearance Clear (Normal) pH 6.0 (Normal) Range: 5.0-7.5 Protein Negative (Normal) Urine-Color Yellow (Normal) WBC Esterase Trace (Abnormal) Specific [place] 1.023 (Normal) Range: 1.005-1.030 6-Jcv-223273:46 Urine Culture,Comprehensive Comments: PERFORMED BY: [employer] [facility] [id number] Result 1 MUG (Normal) Comments: Mixed urogenital flora10,000-25,000 colony forming units per mL Urine Final report (Normal) Culture,Comprehensive 9-Vdl-177889:18 Urinalysis, Office (77620) UA - LEUKOCYTE ESTERASE Small (Normal) UA - NITRITE Negative (Normal) URINE UROBILINGN SAPNA TIMED Normal mg/dL (Normal) Comments: 0.2 UA - PROTEIN Trace mg/dL (Normal) UA - PH 6.0 (Normal) UA - BLOOD Negative (Normal) UA - SPECIFIC GRAVITY 1.025 (Normal) UA - KETONES Negative mg/dL (Normal) UA - BILIRUBIN Negative (Normal) UA - GLUCOSE Negative (Normal) 18-Sqm-122849:02 Microscopic Examination Comments: PATIENT WAS FASTINGPERFORMED BY: [facility] [employer] [facility] [id number] Bacteria None seen (Normal) Crystal Type Amorphous Sediment (Normal) Crystals Present (Abnormal) Mucus Threads Present (Normal) Epithelial Cells (non renal) >10 {/hpf} (Abnormal) Range: 0 - 10 RBC 0-3 {/hpf} (Normal) Range: 0 - 3 WBC 6-10 {/hpf} (Abnormal) Range: 0 - 5 60-Bqj-63531:03 UNILAT DIA DIGITAL & CAD Radiology Report See Note (Normal) Comments: Exam Number: [id number] UNILATERAL RIGHT DIAGNOSTIC MAMMOGRAM A 90-degree lateral [...] ms werealso examined with computer-aided detection software ([employer], [employer] Reported By: ELIEL ROSALES 65-Ubk-41771:33 [facility] DIGITAL & CAD Radiology Report See Note (Normal) Comments: Exam Number: [id number] MAMMOGRAM, BILATERAL SCREENING DIGITAL AND CAD HISTORYRoutine [...] mammograms werealso examined with computer-aided detection software ([employer].). Reported By: JONAH ARAYA M.D. 17-Pyb-587693:02 Vitamin D Hydroxy (85565) Comments: PATIENT WAS FASTINGPERFORMED BY: [facility]6370 [facility] [id number] Vitamin D, 25-Hydroxy 32.4 ng/mL (Normal) Range: 32.0-100.0 Comments: Recent studies consider the lower limit of 32.0 ng/mL to be athreshold for optimal health.Chilo SR. J Nutr. 2004;135(2):317-22. 17-Whs-833252:02 LIPID PANEL (22216) Comments: PATIENT WAS FASTINGPERFORMED BY: Nomanini [id number] [facility] [id number] LDL Cholesterol Calc 136 mg/dL (Abnormal) Range: 0-99 LDL/HDL Ratio 2.6 {ratio_units} (Normal) Range: 0.0-3.2 VLDL Cholesterol Jerald 19 mg/dL (Normal) Range: 5-40 HDL Cholesterol 53 mg/dL (Normal) Comments: According to ATP-III Guidelines, HDL-C >59 mg/dL is considered anegative risk factor for CHD. Cholesterol, Total 208 mg/dL (Abnormal) Range: 100-199 Triglycerides 95 mg/dL (Normal) Range: 0-149 36-Jfm-394576:02 URINALYSIS, W/ MICRO ([id number]) Comments: PATIENT WAS FASTINGPERFORMED BY: [facility]6370 [facility] [id number] Bilirubin Negative (Normal) Ketones Negative (Normal) Microscopic Examination See below: (Normal) Nitrite, Urine Negative (Normal) Occult Blood Trace (Abnormal) Urobilinogen,Semi-Qn 0.2 mg/dL (Normal) Range: 0.0-1.9 Appearance Cloudy (Abnormal) Glucose Negative (Normal) Protein Trace (Normal) Urine-Color Yellow (Normal) WBC Esterase 1+ (Abnormal) pH 6.0 (Normal) Range: 5.0-7.5 Specific [place] 1.029 (Normal) Range: 1.005-1.030 :02 TSH ([id number]) Comments: PATIENT WAS FASTINGPERFORMED BY: [facility] [id number] TSH 2.110 {uIU/mL} (Normal) Range: 0.450-4.500 :02 CBC WITH MANUAL DIFF Comments: PATIENT WAS FASTINGPERFORMED BY: [facility]6370 [facility] [id number] Information: [id number] ([id number]) Baso (Absolute) 0.0 {x10E3/uL} (Normal) Range: 0.0-0.2 [...] 3.80-5.10 WBC 4.9 {x10E3/uL} (Normal) Range: 4.0-10.5 19-Stz-136066:02 METABOLIC PANEL, COMPREHENSIVE Comments: PATIENT WAS FASTINGPERFORMED BY: [facility] [id number] [facility] [id number] ([id number]) Alkaline Phosphatase, S 57 [iU]/L (Normal) Range: [...] without abnormal finding : *Well Female Maintenance ([facility]) Indication: Encounter for gynecological examination without [...] Indication: Hyperlipidemia Planned Observations Thin prep Pap ([id number]) (no STD testing)Indication: Encounter for gynecological examination without abnormal finding On: 62-Pju-45036:11 Request VITAMIN B-12 (CYANOCOBALAMIN) ([id number])Indication: B12 deficiency On: :23 Request Vitamin D Hydroxy (99668)Indication: Vitamin D deficiency, unspecified On: :23 Request C-REACTIVE PROTEIN ([id number])Indication: Mononucleosis On: :28 Request VITAMIN B-12 (CYANOCOBALAMIN) (60330)Indication: B12 deficiency On: :27 Request Urinalysis, Office (22324)Indication: Lower urinary tract infection On: :25 Request URINE MARIA GUADALUPE CULTURE (SAPNA COL COUNT) (44201)Indication: Lower urinary tract infection On: :25 Request Vitamin D Hydroxy (69171)Indication: Vitamin D deficiency, unspecified On: 2-Opt-644884:22 Request Planned Procedures B 12 Injection, 1000 mcg ([id number])By: On: 12-Dec-2017 Intent Sveta Sofia DO, DO, Comments: 1 ml given lt dltd lot [id number] exp 06/01 Sveta DEXA SCAN AXIAL SKELETON ([id number])By: On: 12-Dec-2017 Sveta Samson DO, DO, Sveta SCREENING DIGITAL TOMOSYNTHESIS OF On: 12-Dec-2017 Intent BREAST ([id number])By: Maribell Call B 12 Injection, 1000 mcg (J3420)By: On: 16-Apr-2017 Sveta Samson DO, DO, Comments: vitamin b12 1000mcg injectionlot: [id number]: 06/2018L DELT IMpt tolerated wellAD APPLIED RESEARCH DIRECTOR Sveta ELECTROCARDIOGRAM, COMPLETE (ECG) On: 19-Mar-2017 Intent ([id number])By: Sveta Sofia DO Comments: nsr no acute chg Sveta POLANCO MRI BRAIN W/ CONTRAST ([id number])By: On: 19-Mar-2017 Sveta Samson DO, DO, Kathleen Spirometry ([id number])By: Kimberlyn POLANCO On: 31-Aug-2016 Intent Sveta Colon DO Comments: normal great curve DEXA SCAN AXIAL SKELETON ([id number])By: On: 30-Mar-2016 Intent Sveta Sofia DO, DO, Kathleen MAMMOGRAM, SCREENING, BOTH BREAST On: 30-Mar-2016 Intent (04212)By: Sveta Sofia DO, DO, Kathleen Aerosol Treatment (38360)By: Ciara On: 01-Jan-2015 Intent Gala PEÑA DIAGNOSTIC BILATERAL MAMMOGRAM On: 02-Apr-2014 Intent ([id number])By: Pau Mcghee DO Comments: right breast pain Spot Compression - RightBy: Taz POLANCO, On: 24-Mar-2014 Intent Pau Garcia MAMMOGRAM, SCREENING, BOTH BREAST On: 24-Mar-2014 Intent ([id number])By: Pau Mcghee DO Spirometry ([id number])By: Pau Mcghee DO On: 01-Apr-2013 Intent A Comments: good effort and curve normal Pulse Oximetry (04102)By: Taz POLANCO, On: 01-Apr-2013 Intent Pau Garcia Comments: 98 Nuclear Stress Test/Stress On: 01-Apr-2013 Intent SPECT/AdenosineBy: Pau Mcghee DO Comments: knee issues Holter Monitor 24 hrsBy: Taz POLANCO, On: 01-Apr-2013 Intent Pau Garcia Echo CompleteBy: Pau Mcghee DO On: 01-Apr-2013 Intent EKG (60275)By: Pau Mcghee DO On: 01-Apr-2013 Intent Comments: ekg showed normal sinus rhythym, normal axis, no acute st/t wave changes B 12 Injection, 1000 mcg (J3420)By: On: 22-Oct-2012 Intent Pau Mcghee DO Comments: lot: [id number]: 09/25site/route: L deltoid/IMamt: 1mLVIS signed when applicableChelsea, SENIOR COMPLIANCE ANALYST MAMMOGRAM, SCREENING, BOTH BREASTS On: 05-Jun-2012 Intent ([id number])By: Pau Mcghee DO DXA, BONE DENSITY, AXIAL SKELETON On: 05-Jun-2012 Intent ([id number])By: Pau Mcghee DO Ultrasound - PelvisBy: Pau Mcghee DO On: 05-Jun-2012 Intent A Radiology - Lumbar SpineBy: Bonezzi On: 02-Aug-2010 Intent Gala PEÑA MAMMOGRAM, SCREENING, BOTH BREASTS On: 17-Mar-2009 Intent ([id number])By: Pau Mcghee DO Planned Medications Vitamin B-12 [...] is not using a End: 30-Mar-2016 12:09 nd method of contraception at this time. Patient [...] v icodin rarely when bad. using personnal emr trainer. no radiculopathy. no b/b incontinence. hard [...]
--- OUTSIDE RECORDS SUMMARY | 2018-05-01 08:28 | XMS RPT_ITS | Continuity of Care Document ---
:1960 Author Organization [facility] Address [address] [facility] [address] [place] [address] Phone Care Team Providers Name Role Phone [...] Nasonex 50 MCG/ACT Nasal Suspension 1 (one) [place] each nostril daily for 0 days Quantity: [...] Comments:This order discontinued per [facility]. VITAMIN D, 68134LUCM (Oral Capsule) 1 (one) Capsule q week [...] W/WO Contrast Result: Comments: See Note; NOTES: [facility] Imaging Services [address] [place] [address] Brain W/WO Contrast MR#: [id number] Acct: [id number] Name: ADILIA GARDNER Rep #: [id number] : 1960 F 56 From: Darlene Perry MD PCP: Sveta Sofia DO Status: REG CLI Study: Brain W/WO Contrast Date of Exam: 03/29/17 Exam# [id number] Ordering Dr: Sveta Sofia DO STUDY: MRI [...] Service support , CC: Sveta Sofia DO Shelter Advocate: Signed 02-Apr-2014 Bilat Diag Digital AND CAD Result: Comments: See Note; NOTES: [facility] Imaging Services [address] [place] [address] Breast Imaging Report MR#: [id number] Acct: [id number] Name: ADILIA GARDNER Rep #: [id number] : 1960 F 53 From: Eliel Rosales MD PCP: Pau Mcghee DO Status: REG CLI Study: Bilat Diag Digital AND CAD Date of Exam: 04/02/14 Exam# [id number] Ordering Dr: Pau Mcghee DO MAMMOGRAPHY - [...] Eliel Rosales MD at 15:22 EST Tel [phone], Service support [phone], CC: Pau Mcghee DO Shelter Advocate: Signed 16-Apr-2013 Echocardiogram Complete Result: Comments: See Note; NOTES: [facility] Cardiovascular Services [address] [place] [address] Echo Complete 04/16/13 0921 MR#: [id number] Acct: [id number] Name: Landon GARDNER Rep #: [id number] : 1960 52 From: Zhou Childs MD Attending Dr: Pau Mcghee DO Status: REG CLI Ordering Dr: Pau Mcghee DO Date: 04/16/13 Location: [facility] Sex: F C Admitted: Salvador bateman This [...] Date Dictated: 04/16/13920 Date Transcribed: 04/16/13 1103 Shelter Advocate: Signed Family History Unknown Family Member Name [...] Status: Active 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 Non Smoker/No Tobacco Use Status: [...] Date Description Value Details :29 LIPID PANEL (70506) Comments: PATIENT WAS FASTINGPERFORMED BY: [facility] Mojnlt1005 [facility] [id number] LDL/HDL Ratio 2.1 {ratio} (Normal) Range: 0.0-3.2 [...] Panel, Comprehensive Comments: PATIENT WAS FASTINGPERFORMED BY: [facility] [employer] [facility] [id number] (76445) ALT (SGPT) 12 [iU]/L (Normal) Range: 0-32 [...] 6-24 Glucose 86 mg/dL (Normal) Range: 65-99 19-Vqy-43195:29 CBC WITH MANUAL DIFF (46050) Comments: PATIENT WAS FASTINGPERFORMED BY: [facility]Relypsa[address] [facility] [id number] Immature Grans (Abs) 0.0 {x10E3/uL} (Normal) Range: [...] 3.77-5.28 WBC 4.0 {x10E3/uL} (Normal) Range: 3.4-10.8 07-Tgx-77461:29 VITAMIN B-12 (CYANOCOBALAMIN) Comments: PATIENT WAS FASTINGPERFORMED BY: [facility] [employer] [id number] (47551) Vitamin B12 349 pg/mL (Normal) Range: 232-1245 56-Vke-904824:06 Microscopic Examination Comments: PATIENT WAS FASTINGPERFORMED BY: [facility] [place] [id number] Bacteria None seen (Normal) Mucus Threads Present (Normal) Epithelial Cells (non renal) 0-10 {/hpf} (Normal) Range: 0 - 10 RBC 0-2 {/hpf} (Normal) Range: 0 - 2 WBC 0-5 {/hpf} (Normal) Range: 0 - 5 08-Xmg-953746:06 TSH (12495) Comments: PATIENT WAS FASTINGPERFORMED BY: [facility] [facility] [id number] TSH 2.200 {uIU/mL} (Normal) Range: 0.450-4.500 21-Gfx-040599:06 URINALYSIS, W/ MICRO (97391) Comments: PATIENT WAS FASTINGPERFORMED BY: [facility]6[address] [facility] [id number] Microscopic Examination See below: (Normal) Comments: Microscopic was indicated and was performed. Nitrite, Urine Negative (Normal) Urobilinogen,Semi-Qn 0.2 mg/dL (Normal) Range: 0.2-1.0 Bilirubin Negative (Normal) Occult Blood Negative (Normal) Ketones Negative (Normal) Glucose Negative (Normal) Protein Negative (Normal) WBC Esterase 1+ (Abnormal) Appearance Clear (Normal) Urine-Color Yellow (Normal) pH 5.5 (Normal) Range: 5.0-7.5 Specific [place] 1.024 (Normal) Range: 1.005-1.030 11-Nia-290359:06 MICROALBUMIN: CREATININE RATIO Comments: PATIENT WAS FASTINGPERFORMED BY: [facility] [facility] [id number] (51567) AND (47940) Alb/Creat Ratio 4.6 {mg/g_creat} (Normal) Range: 0.0-30.0 Albumin, Urine 7.3 ug/mL (Normal) Creatinine, Urine 160.4 mg/dL (Normal) 01-Hdn-636610:06 METABOLIC PANEL, COMPREHENSIVE Comments: PATIENT WAS FASTINGPERFORMED BY: [facility]6[address] [facility] [id number] (63622) ALT (SGPT) 22 [iU]/L (Normal) Range: 0-32 [...] Glucose, Serum 90 mg/dL (Normal) Range: 65-99 40-Jht-837509:06 CBC W/AUTO DIFF WBC (31131) Comments: PATIENT WAS FASTINGPERFORMED BY: [facility]CoRar[facility], Old BridgeEhqcme4541 [facility] [id number] Immature Grans (Abs) 0.0 {x10E3/uL} (Normal) Range: [...] 3.77-5.28 WBC 4.6 {x10E3/uL} (Normal) Range: 3.4-10.8 72-Nyq-844420:06 VITAMIN B-12 (CYANOCOBALAMIN) Comments: PATIENT WAS FASTINGPERFORMED BY: [employer] LabOneHealth SolutionsRaritan Bay Medical Center, Old BridgePhutuq1103 [facility] [id number] (08589) Vitamin B12 332 pg/mL (Normal) Range: 232-1245 91-Eez-783441:06 LIPID PANEL (29846) Comments: PATIENT WAS FASTINGPERFORMED BY: LabCoRaritan [facility], Old BridgeNowgde6781 [facility] [id number]; fu 3-5 KF LDL/HDL Ratio 2.1 {ratio_units} [...] Cholesterol, Total 232 mg/dL (Abnormal) Range: 100-199 78-Qwz-66145:04 HPV automatic Comments: Source.............Cervix;EndocervixNo. of containers..01 CYTYC Thin Prep VialPATIENT NOT FASTINGPERFORMED BY: WB [facility] Kevin [place] [id number] BY: =G [facility] (97915) rp Kevin [place] [id number] Information: [id number] HPV, high-risk Negative Comments: This high-risk HPV [...] Cytot echnologist (ASCP) :41 HgA1C , Office (35509) HgA1C , Office 5.4 % (Normal) Range: 4.6 - 7.1 :32 Urinalysis, Office (62708) UA - LEUKOCYTE ESTERASE Moderate (Normal) UA [...] COLON BIOPSY (CHOOSE See Note (Normal) Comments: [facility] X[address]un[address] [place], [address] 0 SITE) Comments: Patient: ADILIA GARDNER : 1960 (55/F) Acct Num: [id number] Phys: Terrence Wright Unit Num: [id number] Loc: [facility] Specimen: [id number] Received: 10/15/15 - 1507 Spec Type: COLON [...] o ne cassette. / SJ:jericho 10/19/15 TC:1 CPT:31891 x2 HEADER OPERATION: Colonoscopy with biopsies PRE-OP DIAGNOSIS: Screening/polyp TISSUE SUBMITTED: A - Cecum polyp biopsies, rule out adenoma, B - Sigmoid/rectum polyps biopsies, rule out adenoma MICROSCOPIC DESCRIPTION Slides are reviewed. MICROSCOPIC DIAGNOSIS A. Cecum polyp, biopsy: Fragments of tubular adenoma. B. Sigmo id/rectum polyps, biopsy: Tubular adenoma. Hyperplastic polyp. SJ:jericho 10/20/15 Signed Davie Marcano 10/20/15 <signature on file> :34 LIPID PANEL (81177) Comments: PATIENT WAS FASTINGPERFORMED BY: [facility] Phsfqb1178 [facility] [id number]; will review on 03/30 LDL/HDL Ratio 1.9 [...] 202 mg/dL (Abnormal) Range: 100-199 :34 CALCIFIDIOL (39902) VIT D 25 Comments: PATIENT WAS FASTINGPERFORMED BY: [facility] [facility] [id number] Vitamin D, 25-Hydroxy 34.0 ng/mL (Normal) Range: 30.0-100.0 Comments: Vitamin D deficiency has been defined by the Dike ofMedicine and an Endocrine Society practice guideline as alevel of serum 25-OH vitamin D less than 20 ng/mL (1,2).The Endocrine Society went on to further define vitamin Dinsufficiency as a level between 21 and 29 ng/mL (2).1. IOM (Dike of Medicine). 2010. Dietary reference intakes for calcium and D. [place]: The National Academies Press.2. Bernardo MF, Darwin ANGELO, Ramona BENZ, et al. Evaluation, treatment, and prevention of vitamin D deficiency: an Endocrine Society clinical practice guideline. JCEM. 2010; 96(7):1911-30. :34 VITAMIN B-12 (CYANOCOBALAMIN) Comments: PATIENT WAS FASTINGPERFORMED BY: [facility] Bbjcbv4920 [facility] [id number] (92515) Vitamin B12 399 pg/mL (Normal) Range: 211-946 44-Dny-088698:47 Pathology Report Comments: PERFORMED BY: CYP DesignCYT LabCl[facility] Cyto Rgkjf20247 [facility] [id number] BY: [facility] Dermatopathology Nrgrcdx416 [address] [id number] Information: [id number] See MATER Comments: Material submitted: .SHAVE BIOPSY [...] IS BISECTED AND SUBMITTED INTOTO.XJW/HAOSPathologist provided ICD-9:173.52CPT .097834 20-Sfx-298016:42 TSH (09502) Comments: PATIENT WAS FASTINGPERFORMED BY: [facility]Henry [facility]6370 [facility] [id number] TSH 2.050 {uIU/mL} (Normal) Range: 0.450-4.500 67-Qgb-327447:42 CBC WITH MANUAL DIFF Comments: PATIENT WAS FASTINGPERFORMED BY: LabHenry [facility]6370 [facility] [id number] Information: [id number] (35022) Immature Grans (Abs) 0.0 {x10E3/uL} (Normal) Range: [...] 3.77-5.28 WBC 4.2 {x10E3/uL} (Normal) Range: 3.4-10.8 54-Nvw-212533:42 Metabolic Panel, Comprehensive Comments: PATIENT WAS FASTINGPERFORMED BY: LabCoRaritan [facility], Old BridgeFpvvmy2845 [facility] [id number] (27517) ALT (SGPT) 16 [iU]/L (Normal) Range: 0-32 [...] Glucose, Serum 87 mg/dL (Normal) Range: 65-99 29-Hfc-003339:42 Lipid Panel (06224) Comments: PATIENT WAS FASTINGPERFORMED BY: Close.[facility] access hospital [id number] LDL/HDL Ratio 2.4 {ratio_units} (Normal) Range: 0.0-3.2 [...] Cholesterol, Total 212 mg/dL (Abnormal) Range: 100-199 14-Htc-556205:42 CALCIFEDIOL (59438) Comments: PATIENT WAS FASTINGPERFORMED BY: [employer] [facility] [id number] Vitamin D, 25-Hydroxy 42.0 ng/mL (Normal) Range: 30.0-100.0 Comments: Vitamin D deficiency has been defined by the Dike ofMedicine and an Endocrine Society practice guideline as alevel of serum 25-OH vitamin D less than 20 ng/mL (1,2).The Endocrine Society went on to further define vitamin Dinsufficiency as a level between 21 and 29 ng/mL (2).1. IOM (Dike of Medicine). 2010. Dietary reference intakes for calcium and D. [place]: The National Academies Press.2. Darwin Read, Ramona BENZ, et al. Evaluation, treatment, and prevention of vitamin D deficiency: an Endocrine Society clinical practice guideline. JCEM. 2010; 96(7):1911-30. :42 Vitamin B-12 (cyanocobalamin) Comments: PATIENT WAS FASTINGPERFORMED BY: CB [facility] Ouoict9216 [address] RoadDublin [place] [id number] (92236) Vitamin B12 518 pg/mL (Normal) Range: 211-946 :33 Vitamin D Hydroxy (03782) Comments: PATIENT WAS FASTINGPERFORMED BY: CB [facility] Qovgui6946 [address]no RoadDublin [place] [id number] Vitamin D, 25-Hydroxy 34.7 ng/mL (Normal) Range: 30.0-100.0 Comments: Vitamin D deficiency has been defined by the Dike ofMedicine and an Endocrine Society practice guideline as alevel of serum 25-OH vitamin D less than 20 ng/mL (1,2).The Endocrine Society went on to further define vitamin Dinsufficiency as a level between 21 and 29 ng/mL (2).1. IOM (Dike of Medicine). 2010. Dietary reference intakes for calcium and D. [place]: The National Academies Press.2. Darwin Read, Ramona BENZ, et al. Evaluation, treatment, and prevention of vitamin D deficiency: an Endocrine Society clinical practice guideline. JCEM. 2010; 96(7):1911-. :33 VITAMIN B-12 (CYANOCOBALAMIN) Comments: PATIENT WAS FASTINGPERFORMED BY: CB [facility] Fquxtq3485 [address]no RoadDublin [place] [id number] (16428) Vitamin B12 376 pg/mL (Normal) Range: 211-946 :33 LIPID PANEL (76672) Comments: PATIENT WAS FASTINGPERFORMED BY: CB [facility] Rtlwiq4080 [facility] [id number] LDL/HDL Ratio 1.8 {ratio_units} (Normal) Range: 0.0-3.2 LDL Cholesterol Calc 131 mg/dL (Abnormal) Range: 0-99 HDL Cholesterol 74 mg/dL (Normal) Comments: According to ATP-III Guidelines, HDL-C >59 mg/dL is considered anegative risk factor for CHD. VLDL Cholesterol Jerald 14 mg/dL (Normal) Range: 5-40 Triglycerides 72 mg/dL (Normal) Range: 0-149 Cholesterol, Total 219 mg/dL (Abnormal) Range: 100-199 35-Zia-69204:33 CBC WITH MANUAL DIFF Comments: PATIENT WAS FASTINGPERFORMED BY: [employer] Xhjdvp2449 [facility] [id number] Information: [id number] (26022) Immature Grans (Abs) 0.0 {x10E3/uL} (Normal) Range: [...] PANEL, COMPREHENSIVE Comments: PATIENT WAS FASTINGPERFORMED BY: LabCoRar[facility], Old BridgeJblexr8113 [facility] [id number] (01350) ALT (SGPT) 14 [iU]/L (Normal) Range: 0-32 [...] TROPONIN, QUANTITATIVE Comments: PATIENT WAS FASTINGPERFORMED BY: [facility]6370 [facility] [id number] (aka Troponin I) (34152) Troponin I <0.01 ng/mL (Normal) Range: 0.00-0.04 :33 TSH (52215) Comments: PATIENT WAS FASTINGPERFORMED BY: [facility]Saint [facility] Udtbvn5273 [facility] [id number] TSH 2.150 {uIU/mL} (Normal) Range: 0.450-4.500 46-Xei-958584:42 URINE MARIA GUADALUPE CULTURE-SAPNA COL Comments: PATIENT NOT FASTINGPERFORMED BY: [place] 6201870 [facility] [id number] Information: SRC:[facility] [id number] COUNT (20936) Result 1 MUG (Normal) Comments: Mixed urogenital flora6,000 Colonies/mL Urine Culture,Comprehensive Final report (Normal) :52 Microscopic Examination Comments: PATIENT WAS FASTINGPERFORMED BY: [facility]6370 [facility] [id number] Bacteria Few (Normal) Mucus Threads Present (Normal) Epithelial Cells (non renal) 0-10 {/hpf} (Normal) Range: 0 - 10 RBC 0-3 {/hpf} (Normal) Range: 0 - 3 WBC 11-30 {/hpf} (Abnormal) Range: 0 - 5 :52 T3, FREE (TRIDOTHYRONINE) (00475) Comments: PATIENT WAS FASTINGPERFORMED BY: [facility]6370 [facility] [id number] Triiodothyronine,Free,Serum 2.4 pg/mL (Normal) Range: 2.0-4.4 :52 T4, FREE (THYROXINE) (08319) Comments: PATIENT WAS FASTINGPERFORMED BY: [facility]6370 [facility] [id number] T4,Free(Direct) 1.06 ng/dL (Normal) Range: 0.82-1.77 :52 Creatine Kinase Total (90923) Comments: PATIENT WAS FASTINGPERFORMED BY: [employer] Wukruh9816 [facility] [id number] Creatine Kinase,Total,Serum 119 U/L (Normal) Range: 24-173 :52 URINALYSIS, W/ MICRO (96576) Comments: PATIENT WAS FASTINGPERFORMED BY: [employer] Umopun8890 [facility] [id number] Microscopic Examination See below: (Normal) Nitrite, Urine Negative (Normal) Urobilinogen,Semi-Qn 0.2 mg/dL (Normal) Range: 0.0-1.9 Bilirubin Negative (Normal) Occult Blood Negative (Normal) Ketones Negative (Normal) Glucose Negative (Normal) Protein Negative (Normal) WBC Esterase 2+ (Abnormal) Appearance Clear (Normal) Urine-Color Yellow (Normal) pH 6.0 (Normal) Range: 5.0-7.5 Specific [place] 1.014 (Normal) Range: 1.005-1.030 :52 LIPID PANEL (53349) Comments: PATIENT WAS FASTINGPERFORMED BY: [employer] Oxqpds2372 [facility] [id number] LDL/HDL Ratio 3.2 {ratio_units} (Normal) Range: 0.0-3.2 LDL Cholesterol Calc 125 mg/dL (Abnormal) Range: 0-99 HDL Cholesterol 39 mg/dL (Abnormal) Comments: According to ATP-III Guidelines, HDL-C >59 mg/dL is considered anegative risk factor for CHD. VLDL Cholesterol Jerald 17 mg/dL (Normal) Range: 5-40 Cholesterol, Total 181 mg/dL (Normal) Range: 100-199 Triglycerides 84 mg/dL (Normal) Range: 0-149 :52 Vitamin D Hydroxy (11155) Comments: PATIENT WAS FASTINGPERFORMED BY: MobileIgniterRaritan Bay [facility] Center, Old BridgeSnmnkm4686 [facility] [id number] Vitamin D, 25-Hydroxy 44.9 ng/mL (Normal) Range: 30.0-100.0 Comments: Vitamin D deficiency has been defined by the Dike ofMedicine and an Endocrine Society practice guideline as alevel of serum 25-OH vitamin D less than 20 ng/mL (1,2).The Endocrine Society went on to further define vitamin Dinsufficiency as a level between 21 and 29 ng/mL (2).1. IOM (Dike of Medicine). 2010. Dietary reference intakes for calcium and D. [place]: The National Academies Press.2. Bernardo MF, Darwin ANGELO, Ramona BENZ, et al. Evaluation, treatment, and prevention of vitamin D deficiency: an Endocrine Society clinical practice guideline. JCEM. 2010; 96(7):1911-30. :52 VITAMIN B-12 (CYANOCOBALAMIN) Comments: PATIENT WAS FASTINGPERFORMED BY: Close.ioCritical access hospital [id number] (98716) Vitamin B12 290 pg/mL (Normal) Range: 211-946 :52 EBV Panel (06621) Comments: PATIENT WAS FASTINGPERFORMED BY: [employer] ([employer])[address] [facility] [id number] Interpretation: SPRCS (Normal) Comments: EBV Interpretation Chart [...] <0.9 Equivocal 0.9 - 1.0 Positive >1.0 08-Cgs-05281:52 CBC WITH MANUAL DIFF Comments: PATIENT WAS FASTINGPERFORMED BY: [facility]6370 [facility] [id number] Information: [id number] (97606) Immature Grans (Abs) 0.0 {x10E3/uL} (Normal) Range: [...] COMPREHENSIVE Comments: PATIENT WAS FASTINGPERFORMED BY: [facility] Rlpbba0606 [facility] [id number] (38883) ALT (SGPT) 16 [iU]/L (Normal) Range: 0-32 [...] 93 mg/dL (Normal) Range: 65-99 :52 TSH (56512) Comments: PATIENT WAS FASTINGPERFORMED BY: [facility] Irfyrv5511 [address] Roadblin [place] [id number] TSH 2.110 {uIU/mL} (Normal) Range: 0.450-4.500 :52 SED RATE ERYTHROCYTE (53994) Comments: PATIENT WAS FASTINGPERFORMED BY: [facility] Cwytuy0846 [facility] [id number] Sedimentation Rate-Westergren 27 mm/h (Normal) Range: 0-40 :52 C-REACTIVE PROTEIN (07328) Comments: PATIENT WAS FASTINGPERFORMED BY: [facility] Mzvmpl08[address] [facility]in [place] [id number] C-Reactive Protein, Quant 59.8 mg/L (Abnormal) Range: 0.0-4.9 6-Lke-131981:41 DEXA BONE DENSITY STUDY (HP) Radiology Report [...] Rosales M.D.June 18, 2012 at 1:43:18 PM [phone] Signed GP/GP If you are the referring physician and would like to consult with theradiologist who provided this interpretation, please contact Viry Veliz at [phone]. If this radiologist is unavailable, youwill be directed to another radiologist to assist. If you are a patient with a question regarding this report, pleasecont actyour referring physician directly. Professional Interpretation Provided By: [employer], Phone , These documents contain legally protected [...] 06/18/12 1346 Sign by: Eliel Rosales MD 4-Fcx-422980:40 BILAT SCRN DIGITAL & CAD Radiology Report [...] Rosales M.D.June 18, 2012 at 12:14:10 PM [phone] Signed GP/GP If you are the referrin g physician and would like to consult with theradiologist who provided this interpretation, please contact Viry Veliz at [phone]. If this radiologist is unavailable, youwill be [...] 06/18/12 1227 Sign by: Eliel Rosales MD 8-Pct-122092:40 PELVIC (NON ) Radiology Report See Note [...] Rosales M.D.June 18, 2012 at 1:52:03 PM [phone] Signed GP/GP If you are the referring physician and would like to consult with theradiologist who provid ed this interpretation, please contact Viry Veliz at [phone]. If this radiologist is unavailable, youwill be directed to another radiologist to assist. If you are a patient with a ques tion regarding this report, pleasecontactyour referring physician directly. Professional Interpretation Provided By: [employer], Phone , These documents contain legally pr [...] Rosales M.D.June 18, 2012 at 1:52:03 PM [phone] Signed GP/GP If you are the referring physician and would like to consult with theradiologist who provid ed this interpretation, please contact Viry Veliz at [phone]. If this radiologist is unavailable, youwill be directed to another radiologist to assist. If you are a patient with a ques tion regarding this report, pleasecontactyour referring physician directly. Professional Interpretation Provided By: [employer], Phone , These documents contain legally pr [...] 06/18/12 135 Sign by: Eliel Rosales MD 27-Nkq-206112:34 L/S SPINE,MIN 4 VIEWS Radiology Report See [...] 08/02/10 1606 Sign by: Andre Antonio MD 2-Mva-096995:46 Microscopic Examination Comments: PERFORMED BY: [facility]6370 [facility] [id number] Bacteria None seen (Normal) Crystal Type Amorphous Sediment (Normal) Crystals Present (Abnormal) Mucus Threads Present (Normal) Epithelial Cells (non renal) 0-10 {/hpf} (Normal) Range: 0 - 10 RBC 0-3 {/hpf} (Normal) Range: 0 - 3 WBC 0-5 {/hpf} (Normal) Range: 0 - 5 5-Wzu-770165:46 Urinalysis, Routine Comments: PERFORMED BY: [employer] [facility] [id number] Information: SRC:UR Bilirubin Negative (Normal) Microscopic Examination See below: (Normal) Nitrite, Urine Negative (Normal) Urobilinogen,Semi-Qn 0.2 mg/dL (Normal) Range: 0.0-1.9 Glucose Negative (Normal) Ketones Negative (Normal) Occult Blood Negative (Normal) Appearance Clear (Normal) pH 6.0 (Normal) Range: 5.0-7.5 Protein Negative (Normal) Urine-Color Yellow (Normal) WBC Esterase Trace (Abnormal) Specific [place] 1.023 (Normal) Range: 1.005-1.030 4-Ljp-081862:46 Urine Culture,Comprehensive Comments: PERFORMED BY: [employer] [facility] [id number] Result 1 MUG (Normal) Comments: Mixed urogenital flora10,000-25,000 colony forming units per mL Urine Final report (Normal) Culture,Comprehensive 8-Qbz-030514:18 Urinalysis, Office (44609) UA - LEUKOCYTE ESTERASE Small (Normal) UA - NITRITE Negative (Normal) URINE UROBILINGN SAPNA TIMED Normal mg/dL (Normal) Comments: 0.2 UA - PROTEIN Trace mg/dL (Normal) UA - PH 6.0 (Normal) UA - BLOOD Negative (Normal) UA - SPECIFIC GRAVITY 1.025 (Normal) UA - KETONES Negative mg/dL (Normal) UA - BILIRUBIN Negative (Normal) UA - GLUCOSE Negative (Normal) 27-Hqy-861235:02 Microscopic Examination Comments: PATIENT WAS FASTINGPERFORMED BY: [employer] [facility] [id number] Bacteria None seen (Normal) Crystal Type Amorphous Sediment (Normal) Crystals Present (Abnormal) Mucus Threads Present (Normal) Epithelial Cells (non renal) >10 {/hpf} (Abnormal) Range: 0 - 10 RBC 0-3 {/hpf} (Normal) Range: 0 - 3 WBC 6-10 {/hpf} (Abnormal) Range: 0 - 5 26-Rqj-37525:03 UNILAT DIA DIGITAL & CAD Radiology Report See Note (Normal) Comments: Exam Number: [id number] UNILATERAL RIGHT DIAGNOSTIC MAMMOGRAM A 90-degree lateral [...] ms werealso examined with computer-aided detection software ([employer], [employer] Reported By: ELIEL ROSALES 40-Uzj-59844:33 [facility] DIGITAL & CAD Radiology Report See Note (Normal) Comments: Exam Number: [id number] MAMMOGRAM, BILATERAL SCREENING DIGITAL AND CAD HISTORYRoutine [...] mammograms werealso examined with computer-aided detection software ([employer].). Reported By: JONAH ARAYA M.D. 66-Pzh-117494:02 Vitamin D Hydroxy (98132) Comments: PATIENT WAS FASTINGPERFORMED BY: [employer] ([employer])6370 [facility] [id number] Vitamin D, 25-Hydroxy 32.4 ng/mL (Normal) Range: 32.0-100.0 Comments: Recent studies consider the lower limit of 32.0 ng/mL to be athreshold for optimal health.Chilo SR. J Nutr. 2004;135(2):317-22. 78-Wem-097887:02 LIPID PANEL (79497) Comments: PATIENT WAS FASTINGPERFORMED BY: [employer] Opdyfd9402 [facility] [id number] LDL Cholesterol Calc 136 mg/dL (Abnormal) Range: 0-99 LDL/HDL Ratio 2.6 {ratio_units} (Normal) Range: 0.0-3.2 VLDL Cholesterol Jerald 19 mg/dL (Normal) Range: 5-40 HDL Cholesterol 53 mg/dL (Normal) Comments: According to ATP-III Guidelines, HDL-C >59 mg/dL is considered anegative risk factor for CHD. Cholesterol, Total 208 mg/dL (Abnormal) Range: 100-199 Triglycerides 95 mg/dL (Normal) Range: 0-149 [id number]-[id number]:02 URINALYSIS, W/ MICRO ([id number]) Comments: PATIENT WAS FASTINGPERFORMED BY: [facility] [facility] [id number] Bilirubin Negative (Normal) Ketones Negative (Normal) Microscopic Examination See below: (Normal) Nitrite, Urine Negative (Normal) Occult Blood Trace (Abnormal) Urobilinogen,Semi-Qn 0.2 mg/dL (Normal) Range: 0.0-1.9 Appearance Cloudy (Abnormal) Glucose Negative (Normal) Protein Trace (Normal) Urine-Color Yellow (Normal) WBC Esterase 1+ (Abnormal) pH 6.0 (Normal) Range: 5.0-7.5 Specific [place] 1.029 (Normal) Range: 1.005-1.030 :02 TSH ([id number]) Comments: PATIENT WAS FASTINGPERFORMED BY: [facility] [facility] [id number] TSH 2.110 {uIU/mL} (Normal) Range: 0.450-4.500 :02 CBC WITH MANUAL DIFF Comments: PATIENT WAS FASTINGPERFORMED BY: [facility] [facility] [id number] Information: [id number] ([id number]) Baso (Absolute) 0.0 {x10E3/uL} (Normal) Range: 0.0-0.2 [...] 3.80-5.10 WBC 4.9 {x10E3/uL} (Normal) Range: 4.0-10.5 67-Bic-639816:02 METABOLIC PANEL, COMPREHENSIVE Comments: PATIENT WAS FASTINGPERFORMED BY: [facility] Xdlyfw[address] [facility] [id number] ([id number]) Alkaline Phosphatase, S 57 [iU]/L (Normal) Range: [...] without abnormal finding : *Well Female Maintenance ([facility]) Indication: Encounter for gynecological examination without abnormal [...] Indication: Hyperlipidemia Planned Observations Thin prep Pap ([id number]) (no STD testing)Indication: Encounter for gynecological examination without abnormal finding On: 09-Dtb-55983:11 Request VITAMIN B-12 (CYANOCOBALAMIN) ([id number])Indication: B12 deficiency On: :23 Request Vitamin D Hydroxy ([id number])Indication: Vitamin D deficiency, unspecified On: :23 Request C-REACTIVE PROTEIN ([id number])Indication: Mononucleosis On: :28 Request VITAMIN B-12 (CYANOCOBALAMIN) ([id number])Indication: B12 deficiency On: :27 Request Urinalysis, Office ([id number])Indication: Lower urinary tract infection On: :25 Request URINE MARIA GUADALUPE CULTURE (SAPNA COL COUNT) ([id number])Indication: Lower urinary tract infection On: :25 Request Vitamin D Hydroxy ([id number])Indication: Vitamin D deficiency, unspecified On: 9-Glj-297949:22 Request Planned Procedures B 12 Injection, 1000 mcg ([id number])By: On: 12-Dec-2017 Intent Sveta Sofia DO, DO, Comments: 1 ml given lt dltd lot [id number] exp 06/01 Sveta DEXA SCAN AXIAL SKELETON ([id number])By: On: 12-Dec-2017 Sveta Samson DO, DO, Sveta SCREENING DIGITAL TOMOSYNTHESIS OF On: 12-Dec-2017 Intent BREAST ([id number])By: Maribell Call B 12 Injection, 1000 mcg ([id number])By: On: 16-Apr-2017 Sveta Samson DO, DO, Comments: vitamin b12 1000mcg injectionlot: [id number]: 06/2018L DELT 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 Sveta ELECTROCARDIOGRAM, COMPLETE (ECG) On: 19-Mar-2017 Intent ([id number])By: Sveta Sofia DO Comments: nsr no acute chg Sveta POLANCO MRI BRAIN W/ CONTRAST ([id number])By: On: 19-Mar-2017 Sveta Samson DO, DO, Kathleen Spirometry ([id number])By: Kimberlyn POLANCO On: 31-Aug-2016 Intent Sveta Colon DO Comments: normal great curve DEXA SCAN AXIAL SKELETON ([id number])By: On: 30-Mar-2016 Intent Sveta Sofia DO, DO, Kathleen MAMMOGRAM, SCREENING, BOTH BREAST On: 30-Mar-2016 Intent ([id number])By: Sveta Sofia DO, DO, Kathleen Aerosol Treatment ([id number])By: Ciara On: 01-Jan-2015 Intent Gala PEÑA DIAGNOSTIC BILATERAL MAMMOGRAM On: 02-Apr-2014 Intent ([id number])By: Pau Mcghee DO Comments: right breast pain Spot Compression - RightBy: Taz POLANCO, On: 24-Mar-2014 Intent Pau Garcia MAMMOGRAM, SCREENING, BOTH BREAST On: 24-Mar-2014 Intent ([id number])By: Pau Mcghee DO Spirometry ([id number])By: Pau Mcghee DO On: 01-Apr-2013 Intent A Comments: good effort and curve normal Pulse Oximetry ([id number])By: Taz POLANCO, On: 01-Apr-2013 Intent Pau Garcia Comments: 98 Nuclear Stress Test/Stress On: 01-Apr-2013 Intent SPECT/AdenosineBy: Pau Mcghee DO Comments: knee issues Holter Monitor 24 hrsBy: Taz POLANCO, On: 01-Apr-2013 Intent Pau Garcia Echo CompleteBy: Pau Mcghee DO On: 01-Apr-2013 Intent EKG ([id number])By: Pau Mcghee DO On: 01-Apr-2013 Intent Comments: ekg showed normal sinus rhythym, normal axis, no acute st/t wave changes B 12 Injection, 1000 mcg ([id number])By: On: 22-Oct-2012 Intent Pau Mcghee DO Comments: lot: [id number]: 09/25site/route: L deltoid/IMamt: 1mLVIS signed when applicableChelsea, ETHYLBENZENE CONVERTER HELPER MAMMOGRAM, SCREENING, BOTH BREASTS On: 05-Jun-2012 Intent ([id number])By: Pau Mcghee DO DXA, BONE DENSITY, AXIAL SKELETON On: 05-Jun-2012 Intent ([id number])By: Pau Mcghee DO Ultrasound - PelvisBy: Pau Mcghee DO On: 05-Jun-2012 Intent A Radiology - Lumbar SpineBy: Bonezzi On: 02-Aug-2010 Intent Gala PEÑA MAMMOGRAM, SCREENING, BOTH BREASTS On: 17-Mar-2009 Intent ([id number])By: Pau Mcghee DO Planned Medications Vitamin B-12 [...] is not using a End: 30-Mar-2016 12:09 wa method of contraception at this time. Patient [...] v icodin rarely when bad. 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 no radiculopathy. no b/b incontinence. hard [...]
--- OUTSIDE RECORDS SUMMARY | 2018-05-01 08:29 | XMS RPT_ITS | Continuity of Care Document ---
:1960 Author Organization [facility] Address [address] [facility] [address] [place] [address] Phone Care Team Providers Name Role Phone [...] Nasonex 50 MCG/ACT Nasal Suspension 1 (one) [place] each nostril daily for 0 days Quantity: [...] Comments:This order discontinued per [employer]. VITAMIN D, [id number] (Oral Capsule) 1 (one) Capsule q week [...] W/WO Contrast Result: Comments: See Note; NOTES: [facility] Imaging Services [address] [place] [address] Brain W/WO Contrast MR#: [id number] Acct: [id number] Name: ADILIA GARDNER Rep #: [id number] : 1960 F 56 From: Darlene Perry MD PCP: Sveta Sofia DO Status: REG CLI Study: Brain W/WO Contrast Date of Exam: 03/29/17 Exam# [id number] Ordering Dr: Sveta Sofia DO STUDY: MRI [...] Service support , CC: Sveta Sofia DO Product Inspection Coordinator: Signed 02-Apr-2014 Bilat Diag Digital AND CAD Result: Comments: See Note; NOTES: [facility] Imaging Services [address] [place] [address] Breast Imaging Report MR#: [id number] Acct: [id number] Name: ADILIA GARDNER Rep #: [id number] : 1960 F 53 From: Eliel Rosales MD PCP: Pau Mcghee DO Status: REG CLI Study: Bilat Diag Digital AND CAD Date of Exam: 04/02/14 Exam# [id number] Ordering Dr: Pau Mcghee DO MAMMOGRAPHY - [...] Eliel Rosales MD at 15:22 EST Tel [phone], Service support [phone], CC: Pau Mcghee DO Product Inspection Coordinator: Signed 16-Apr-2013 Echocardiogram Complete Result: Comments: See Note; NOTES: [facility] Cardiovascular Services [address] [place] [address] Echo Complete 04/16/13 0921 MR#: [id number] Acct: [id number] Name: Lnadon GARDNER Rep #: [id number] : 1960 52 From: Zhou Childs MD Attending Dr: Pau Mcghee DO Status: REG CLI Ordering Dr: Pau Mcghee DO Date: 04/16/13 Location: [facility] Sex: F C Admitted: Salvador [...] Date Dictated: 04/16/13920 Date Transcribed: 04/16/13 1103 Product Inspection Coordinator: Signed Family History Unknown Family Member Name [...] Status: 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 Non Smoker/No Tobacco Use Status: [...] Date Description Value Details :29 LIPID PANEL (43255) Comments: PATIENT WAS FASTINGPERFORMED BY: [facility] Mmfvyw0408 [facility] [id number] LDL/HDL Ratio 2.1 {ratio} (Normal) Range: 0.0-3.2 [...] Panel, Comprehensive Comments: PATIENT WAS FASTINGPERFORMED BY: [employer] Notes[address] [facility] [id number] (96632) ALT (SGPT) 12 [iU]/L (Normal) Range: 0-32 [...] 6-24 Glucose 86 mg/dL (Normal) Range: 65-99 84-Wcu-45209:29 CBC WITH MANUAL DIFF (62716) Comments: PATIENT WAS FASTINGPERFORMED BY: LabJosephICan LLC[address] [place] [facility] [id number] Immature Grans (Abs) 0.0 {x10E3/uL} (Normal) Range: [...] 3.77-5.28 WBC 4.0 {x10E3/uL} (Normal) Range: 3.4-10.8 65-Xsc-12956:29 VITAMIN B-12 (CYANOCOBALAMIN) Comments: PATIENT WAS FASTINGPERFORMED BY: [employer] [facility] [id number] (17551) Vitamin B12 349 pg/mL (Normal) Range: 232-1245 20-Fwj-428419:06 Microscopic Examination Comments: PATIENT WAS FASTINGPERFORMED BY: [employer] [facility] [place] [id number] Bacteria None seen (Normal) Mucus Threads Present (Normal) Epithelial Cells (non renal) 0-10 {/hpf} (Normal) Range: 0 - 10 RBC 0-2 {/hpf} (Normal) Range: 0 - 2 WBC 0-5 {/hpf} (Normal) Range: 0 - 5 75-Rta-371170:06 TSH (68916) Comments: PATIENT WAS FASTINGPERFORMED BY: [facility] [facility] [id number] TSH 2.200 {uIU/mL} (Normal) Range: 0.450-4.500 47-Xwa-422948:06 URINALYSIS, W/ MICRO (90951) Comments: PATIENT WAS FASTINGPERFORMED BY: [facility]6[address] [facility] [id number] Microscopic Examination See below: (Normal) Comments: Microscopic was indicated and was performed. Nitrite, Urine Negative (Normal) Urobilinogen,Semi-Qn 0.2 mg/dL (Normal) Range: 0.2-1.0 Bilirubin Negative (Normal) Occult Blood Negative (Normal) Ketones Negative (Normal) Glucose Negative (Normal) Protein Negative (Normal) WBC Esterase 1+ (Abnormal) Appearance Clear (Normal) Urine-Color Yellow (Normal) pH 5.5 (Normal) Range: 5.0-7.5 Specific [place] 1.024 (Normal) Range: 1.005-1.030 86-Pih-061112:06 MICROALBUMIN: CREATININE RATIO Comments: PATIENT WAS FASTINGPERFORMED BY: [facility]6[address] [facility] [id number] (89227) AND (37928) Alb/Creat Ratio 4.6 {mg/g_creat} (Normal) Range: 0.0-30.0 Albumin, Urine 7.3 ug/mL (Normal) Creatinine, Urine 160.4 mg/dL (Normal) 93-Ome-237365:06 METABOLIC PANEL, COMPREHENSIVE Comments: PATIENT WAS FASTINGPERFORMED BY: [facility] [id number] (96900) ALT (SGPT) 22 [iU]/L (Normal) Range: 0-32 [...] Glucose, Serum 90 mg/dL (Normal) Range: 65-99 99-Ftm-244552:06 CBC W/AUTO DIFF WBC (77640) Comments: PATIENT WAS FASTINGPERFORMED BY: LabCoInspira Medical Center Mullica HillRtbidk1219 [facility] [id number] Immature Grans (Abs) 0.0 {x10E3/uL} (Normal) Range: [...] 3.77-5.28 WBC 4.6 {x10E3/uL} (Normal) Range: 3.4-10.8 77-Wfg-681980:06 VITAMIN B-12 (CYANOCOBALAMIN) Comments: PATIENT WAS FASTINGPERFORMED BY: [email or web address] LabGroup CommerceInspira Medical Center Mullica HillOxaamm6709 [facility] [id number] (19999) Vitamin B12 332 pg/mL (Normal) Range: 232-1245 12-Glz-072979:06 LIPID PANEL (46050) Comments: PATIENT WAS FASTINGPERFORMED BY: LabCoInspira Medical Center Mullica HillGegkrk8741 [facility] [id number]; fu 3-5 KF LDL/HDL Ratio 2.1 {ratio_units} [...] Cholesterol, Total 232 mg/dL (Abnormal) Range: 100-199 14-Lpb-58766:04 HPV automatic Comments: Source.............Cervix;EndocervixNo. of containers..01 CYTYC Thin Prep VialPATIENT NOT FASTINGPERFORMED BY: WB [facility] Kevin Perry [place] [id number] BY: =G [facility] (75884) rp Kevin Perry [place] [id number] Information: [id number] HPV, high-risk Negative Comments: This high-risk HPV [...] Cytot echnologist (ASCP) :41 HgA1C , Office (63370) HgA1C , Office 5.4 % (Normal) Range: 4.6 - 7.1 :32 Urinalysis, Office (64647) UA - LEUKOCYTE ESTERASE Moderate (Normal) UA [...] COLON BIOPSY (CHOOSE See Note (Normal) Comments: [facility] [address] [place], [address] 0 SITE) Comments: Patient: ADILIA GARDNER : 1960 (55/F) Acct Num: [id number] Phys: Terrence Wright Unit Num: [id number] Loc: [facility] Specimen: [id number] Received: 10/15/15 - 1507 Spec Type: COLON [...] o ne cassette. / SJ:jericho 10/19/15 TC:1 CPT:29748 x2 HEADER OPERATION: Colonoscopy with biopsies PRE-OP DIAGNOSIS: Screening/polyp TISSUE SUBMITTED: A - Cecum polyp biopsies, rule out adenoma, B - Sigmoid/rectum polyps biopsies, rule out adenoma MICROSCOPIC DESCRIPTION Slides are reviewed. MICROSCOPIC DIAGNOSIS A. Cecum polyp, biopsy: Fragments of tubular adenoma. B. Sigmo id/rectum polyps, biopsy: Tubular adenoma. Hyperplastic polyp. SJ:jericho 10/20/15 Signed Davie Marcano 10/20/15 <signature on file> :34 LIPID PANEL (36106) Comments: PATIENT WAS FASTINGPERFORMED BY: [facility] Nweehy9970 [facility] [id number]; will review on 03/30 LDL/HDL Ratio 1.9 [...] 202 mg/dL (Abnormal) Range: 100-199 :34 CALCIFIDIOL (20890) VIT D 25 Comments: PATIENT WAS FASTINGPERFORMED BY: [facility]6[address] [facility] [id number] Vitamin D, 25-Hydroxy 34.0 ng/mL (Normal) Range: 30.0-100.0 Comments: Vitamin D deficiency has been defined by the [place] of[place]icine and an Endocrine Society practice guideline as alevel of serum 25-OH vitamin D less than 20 ng/mL (1,2).The Endocrine Society went on to further define vitamin Dinsufficiency as a level between 21 and 29 ng/mL (2).1. IOM ([place] of Medicine). 2010. Dietary reference intakes for calcium and D. [place]: The National Academies Press.2. Bernardo MF, Darwin ANGELO, Ramona BENZ, et al. Evaluation, treatment, and prevention of vitamin D deficiency: an Endocrine Society clinical practice guideline. JCEM. 2010; 96(7):1911-30. :34 VITAMIN B-12 (CYANOCOBALAMIN) Comments: PATIENT WAS FASTINGPERFORMED BY: [facility] Htyoea0904 [facility] [id number] (32552) Vitamin B12 399 pg/mL (Normal) Range: 211-946 46-Xqu-995140:47 Pathology Report Comments: PERFORMED BY: GiggemCYT [facility]Way[facility] Cyto Wrkxx02038 [facility] [id number] BY: [facility] Dermatopathology Lcmdpoj[address] [id number] Information: [id number] See MATER Comments: Material submitted: .SHAVE BIOPSY [...] IS BISECTED AND SUBMITTED INTOTO.XJW/HAOSPathologist provided ICD-9:173.52CPT .704233 90-Yai-996723:42 TSH (23757) Comments: PATIENT WAS FASTINGPERFORMED BY: [facility]Vib[facility]6370 [facility] [id number] TSH 2.050 {uIU/mL} (Normal) Range: 0.450-4.500 07-Wdz-584820:42 CBC WITH MANUAL DIFF Comments: PATIENT WAS FASTINGPERFORMED BY: LabVib[facility] Michigan6370 [facility] [id number] Information: [id number] (63634) Immature Grans (Abs) 0.0 {x10E3/uL} (Normal) Range: [...] 3.77-5.28 WBC 4.2 {x10E3/uL} (Normal) Range: 3.4-10.8 24-Yme-400193:42 Metabolic Panel, Comprehensive Comments: PATIENT WAS FASTINGPERFORMED BY: LabCoInspira Medical Center Mullica HillIedocw1303 [facility] [id number] (41816) ALT (SGPT) 16 [iU]/L (Normal) Range: 0-32 [...] Glucose, Serum 87 mg/dL (Normal) Range: 65-99 44-Grv-064854:42 Lipid Panel (12672) Comments: PATIENT WAS FASTINGPERFORMED BY: [facility] [id number] LDL/HDL Ratio 2.4 {ratio_units} (Normal) Range: 0.0-3.2 [...] Cholesterol, Total 212 mg/dL (Abnormal) Range: 100-199 05-Szz-986693:42 CALCIFEDIOL (89226) Comments: PATIENT WAS FASTINGPERFORMED BY: [employer] [facility] [id number] Vitamin D, 25-Hydroxy 42.0 ng/mL (Normal) Range: 30.0-100.0 Comments: Vitamin D deficiency has been defined by the [place] of[place]icine and an Endocrine Society practice guideline as alevel of serum 25-OH vitamin D less than 20 ng/mL (1,2).The Endocrine Society went on to further define vitamin Dinsufficiency as a level between 21 and 29 ng/mL (2).1. IOM ([place] of Medicine). 2010. Dietary reference intakes for calcium and D. [place]: The National Academies Press.2. Darwin Read, Ramona BENZ, et al. Evaluation, treatment, and prevention of vitamin D deficiency: an Endocrine Society clinical practice guideline. JCEM. 2010; 96(7):1911-30. :42 Vitamin B-12 (cyanocobalamin) Comments: PATIENT WAS FASTINGPERFORMED BY: CB [facility] Hwkldv5743 [address] RoadDublin [place] [id number] (16371) Vitamin B12 518 pg/mL (Normal) Range: 211-946 :33 Vitamin D Hydroxy (85655) Comments: PATIENT WAS FASTINGPERFORMED BY: CB [facility] Sckalw1415 [address]no RoadDublin [place] [id number] Vitamin D, 25-Hydroxy 34.7 ng/mL (Normal) Range: 30.0-100.0 Comments: Vitamin D deficiency has been defined by the [place] of[place]icine and an Endocrine Society practice guideline as alevel of serum 25-OH vitamin D less than 20 ng/mL (1,2).The Endocrine Society went on to further define vitamin Dinsufficiency as a level between 21 and 29 ng/mL (2).1. IOM ([place] of Medicine). 2010. Dietary reference intakes for calcium and D. [place]: The National Academies Press.2. Darwin Read, Ramona BENZ, et al. Evaluation, treatment, and prevention of vitamin D deficiency: an Endocrine Society clinical practice guideline. JCEM. 2010; 96(7):1911-. :33 VITAMIN B-12 (CYANOCOBALAMIN) Comments: PATIENT WAS FASTINGPERFORMED BY: CB [facility] Yabtme7912 [address] RoadDublin [place] [id number] (94196) Vitamin B12 376 pg/mL (Normal) Range: 211-946 :33 LIPID PANEL (00389) Comments: PATIENT WAS FASTINGPERFORMED BY: CB [facility] Oinwta1016 [facility] [id number] LDL/HDL Ratio 1.8 {ratio_units} (Normal) Range: 0.0-3.2 LDL Cholesterol Calc 131 mg/dL (Abnormal) Range: 0-99 HDL Cholesterol 74 mg/dL (Normal) Comments: According to ATP-III Guidelines, HDL-C >59 mg/dL is considered anegative risk factor for CHD. VLDL Cholesterol Jerald 14 mg/dL (Normal) Range: 5-40 Triglycerides 72 mg/dL (Normal) Range: 0-149 Cholesterol, Total 219 mg/dL (Abnormal) Range: 100-199 68-Exj-84783:33 CBC WITH MANUAL DIFF Comments: PATIENT WAS FASTINGPERFORMED BY: [employer] Bzbfiu9022 [facility] [id number] Information: [id number] (37180) Immature Grans (Abs) 0.0 {x10E3/uL} (Normal) Range: [...] PANEL, COMPREHENSIVE Comments: PATIENT WAS FASTINGPERFORMED BY: LabCoInspira Medical Center Mullica HillJbnfuv4359 [facility] [id number] (17812) ALT (SGPT) 14 [iU]/L (Normal) Range: 0-32 [...] TROPONIN, QUANTITATIVE Comments: PATIENT WAS FASTINGPERFORMED BY: [facility]6370 [facility] [id number] (aka Troponin I) (50821) Troponin I <0.01 ng/mL (Normal) Range: 0.00-0.04 :33 TSH (12708) Comments: PATIENT WAS FASTINGPERFORMED BY: LabChildren[facility] Ntmamc2183 [facility] [id number] TSH 2.150 {uIU/mL} (Normal) Range: 0.450-4.500 38-Sge-002963:42 URINE MARIA GUADALUPE CULTURE-SAPNA COL Comments: PATIENT NOT FASTINGPERFORMED BY: [place] 7056170 [facility] [id number] Information: SRC:[facility] [id number] COUNT (99797) Result 1 MUG (Normal) Comments: Mixed urogenital flora6,000 Colonies/mL Urine Culture,Comprehensive Final report (Normal) :52 Microscopic Examination Comments: PATIENT WAS FASTINGPERFORMED BY: [facility]6[address] [facility] [id number] Bacteria Few (Normal) Mucus Threads Present (Normal) Epithelial Cells (non renal) 0-10 {/hpf} (Normal) Range: 0 - 10 RBC 0-3 {/hpf} (Normal) Range: 0 - 3 WBC 11-30 {/hpf} (Abnormal) Range: 0 - 5 :52 T3, FREE (TRIDOTHYRONINE) (72295) Comments: PATIENT WAS FASTINGPERFORMED BY: [facility]6[address] [facility] [id number] Triiodothyronine,Free,Serum 2.4 pg/mL (Normal) Range: 2.0-4.4 :52 T4, FREE (THYROXINE) (95688) Comments: PATIENT WAS FASTINGPERFORMED BY: [facility]6[address] [facility] [id number] T4,Free(Direct) 1.06 ng/dL (Normal) Range: 0.82-1.77 :52 Creatine Kinase Total (20260) Comments: PATIENT WAS FASTINGPERFORMED BY: [employer] Ufreax2714 [facility] [id number] Creatine Kinase,Total,Serum 119 U/L (Normal) Range: 24-173 :52 URINALYSIS, W/ MICRO (82122) Comments: PATIENT WAS FASTINGPERFORMED BY: [employer] Erkomi5759 [facility] [id number] Microscopic Examination See below: (Normal) Nitrite, Urine Negative (Normal) Urobilinogen,Semi-Qn 0.2 mg/dL (Normal) Range: 0.0-1.9 Bilirubin Negative (Normal) Occult Blood Negative (Normal) Ketones Negative (Normal) Glucose Negative (Normal) Protein Negative (Normal) WBC Esterase 2+ (Abnormal) Appearance Clear (Normal) Urine-Color Yellow (Normal) pH 6.0 (Normal) Range: 5.0-7.5 Specific [place] 1.014 (Normal) Range: 1.005-1.030 :52 LIPID PANEL (68092) Comments: PATIENT WAS FASTINGPERFORMED BY: [employer] Abwtdq1523 [facility] [id number] LDL/HDL Ratio 3.2 {ratio_units} (Normal) Range: 0.0-3.2 LDL Cholesterol Calc 125 mg/dL (Abnormal) Range: 0-99 HDL Cholesterol 39 mg/dL (Abnormal) Comments: According to ATP-III Guidelines, HDL-C >59 mg/dL is considered anegative risk factor for CHD. VLDL Cholesterol Jerald 17 mg/dL (Normal) Range: 5-40 Cholesterol, Total 181 mg/dL (Normal) Range: 100-199 Triglycerides 84 mg/dL (Normal) Range: 0-149 :52 Vitamin D Hydroxy (02441) Comments: PATIENT WAS FASTINGPERFORMED BY: CyberPatrolInspira Medical Center Mullica HillJrcfgv8913 [facility] [id number] Vitamin D, 25-Hydroxy 44.9 ng/mL (Normal) Range: 30.0-100.0 Comments: Vitamin D deficiency has been defined by the [place] of[place]icine and an Endocrine Society practice guideline as alevel of serum 25-OH vitamin D less than 20 ng/mL (1,2).The Endocrine Society went on to further define vitamin Dinsufficiency as a level between 21 and 29 ng/mL (2).1. IOM ([place] of Medicine). 2010. Dietary reference intakes for calcium and D. [place]: The National Academies Press.2. Bernardo MF, Dariwn ANGELO, Ramona BENZ, et al. Evaluation, treatment, and prevention of vitamin D deficiency: an Endocrine Society clinical practice guideline. JCEM. 2010; 96(7):1911-30. :52 VITAMIN B-12 (CYANOCOBALAMIN) Comments: PATIENT WAS FASTINGPERFORMED BY: [facility] [id number] (19925) Vitamin B12 290 pg/mL (Normal) Range: 211-946 :52 EBV Panel (77631) Comments: PATIENT WAS FASTINGPERFORMED BY: Pacinian[address] [facility] [id number] Interpretation: SPRCS (Normal) Comments: EBV Interpretation Chart [...] <0.9 Equivocal 0.9 - 1.0 Positive >1.0 61-Hog-66617:52 CBC WITH MANUAL DIFF Comments: PATIENT WAS FASTINGPERFORMED BY: LabVib[facility]6370 [facility] [id number] Information: [id number] (64523) Immature Grans (Abs) 0.0 {x10E3/uL} (Normal) Range: [...] COMPREHENSIVE Comments: PATIENT WAS FASTINGPERFORMED BY: [facility] Duytel7005 [facility] [id number] (09539) ALT (SGPT) 16 [iU]/L (Normal) Range: 0-32 [...] 93 mg/dL (Normal) Range: 65-99 :52 TSH (30734) Comments: PATIENT WAS FASTINGPERFORMED BY: [facility] Ztsmzq9371 [place] Roadblin [place] [id number] TSH 2.110 {uIU/mL} (Normal) Range: 0.450-4.500 :52 SED RATE ERYTHROCYTE (82262) Comments: PATIENT WAS FASTINGPERFORMED BY: [facility] Qpwabx9638 [facility] [id number] Sedimentation Rate-Westergren 27 mm/h (Normal) Range: 0-40 :52 C-REACTIVE PROTEIN (04232) Comments: PATIENT WAS FASTINGPERFORMED BY: [facility] Tatpko[address] [facility]in [place] [id number] C-Reactive Protein, Quant 59.8 mg/L (Abnormal) Range: 0.0-4.9 0-Lik-826064:41 DEXA BONE DENSITY STUDY (HP) Radiology Report [...] Rosales M.D.June 18, 2012 at 1:43:18 PM [id number] Signed GP/GP If you are the referring physician and would like to consult with theradiologist who provided this interpretation, please contact Viry Veliz at [phone]. If this radiologist is unavailable, youwill be directed to another radiologist to assist. If you are a patient with a question regarding this report, pleasecont actyour referring physician directly. Professional Interpretation Provided By: [employer], Phone , These documents contain legally protected [...] 06/18/12 1346 Sign by: Eliel Rosales MD 5-Pgb-100952:40 BILAT SCRN DIGITAL & CAD Radiology Report [...] Rosales M.D.June 18, 2012 at 12:14:10 PM [id number] Signed GP/GP If you are the referrin g physician and would like to consult with theradiologist who provided this interpretation, please contact Viry Veliz at [phone]. If this radiologist is unavailable, youwill be [...] 06/18/12 1227 Sign by: Eliel Rosales MD 3-Bke-325809:40 PELVIC (NON ) Radiology Report See Note [...] Rosales M.D.June 18, 2012 at 1:52:03 PM [id number] Signed GP/GP If you are the referring physician and would like to consult with theradiologist who provid ed this interpretation, please contact Viry Veliz at [phone]. If this radiologist is unavailable, youwill be directed to another radiologist to assist. If you are a patient with a ques tion regarding this report, pleasecontactyour referring physician directly. Professional Interpretation Provided By: [employer], Phone , These documents contain legally pr [...] Rosales M.D.June 18, 2012 at 1:52:03 PM [id number] Signed GP/GP If you are the referring physician and would like to consult with theradiologist who provid ed this interpretation, please contact Viry Veliz at [phone]. If this radiologist is unavailable, youwill be directed to another radiologist to assist. If you are a patient with a ques tion regarding this report, pleasecontactyour referring physician directly. Professional Interpretation Provided By: [employer], Phone , These documents contain legally pr [...] 06/18/12 135 Sign by: Eliel Rosales MD 45-Ibh-852572:34 L/S SPINE,MIN 4 VIEWS Radiology Report See [...] 08/02/10 1606 Sign by: Andre Antonio MD 6-Bqh-412020:46 Microscopic Examination Comments: PERFORMED BY: [facility]Vib[facility]6370 [facility] [id number] Bacteria None seen (Normal) Crystal Type Amorphous Sediment (Normal) Crystals Present (Abnormal) Mucus Threads Present (Normal) Epithelial Cells (non renal) 0-10 {/hpf} (Normal) Range: 0 - 10 RBC 0-3 {/hpf} (Normal) Range: 0 - 3 WBC 0-5 {/hpf} (Normal) Range: 0 - 5 8-Znc-613946:46 Urinalysis, Routine Comments: PERFORMED BY: [employer] EventRegist [facility] [id number] Information: SRC:UR Bilirubin Negative (Normal) Microscopic Examination See below: (Normal) Nitrite, Urine Negative (Normal) Urobilinogen,Semi-Qn 0.2 mg/dL (Normal) Range: 0.0-1.9 Glucose Negative (Normal) Ketones Negative (Normal) Occult Blood Negative (Normal) Appearance Clear (Normal) pH 6.0 (Normal) Range: 5.0-7.5 Protein Negative (Normal) Urine-Color Yellow (Normal) WBC Esterase Trace (Abnormal) Specific [place] 1.023 (Normal) Range: 1.005-1.030 2-Ofq-879947:46 Urine Culture,Comprehensive Comments: PERFORMED BY: FTL SOLAR [facility] [id number] Result 1 MUG (Normal) Comments: Mixed urogenital flora10,000-25,000 colony forming units per mL Urine Final report (Normal) Culture,Comprehensive 8-Ajo-043697:18 Urinalysis, Office (03110) UA - LEUKOCYTE ESTERASE Small (Normal) UA - NITRITE Negative (Normal) URINE UROBILINGN SAPNA TIMED Normal mg/dL (Normal) Comments: 0.2 UA - PROTEIN Trace mg/dL (Normal) UA - PH 6.0 (Normal) UA - BLOOD Negative (Normal) UA - SPECIFIC GRAVITY 1.025 (Normal) UA - KETONES Negative mg/dL (Normal) UA - BILIRUBIN Negative (Normal) UA - GLUCOSE Negative (Normal) 16-Mct-235620:02 Microscopic Examination Comments: PATIENT WAS FASTINGPERFORMED BY: [employer] Event[employer] [facility] [id number] Bacteria None seen (Normal) Crystal Type Amorphous Sediment (Normal) Crystals Present (Abnormal) Mucus Threads Present (Normal) Epithelial Cells (non renal) >10 {/hpf} (Abnormal) Range: 0 - 10 RBC 0-3 {/hpf} (Normal) Range: 0 - 3 WBC 6-10 {/hpf} (Abnormal) Range: 0 - 5 44-Wma-06947:03 UNILAT DIA DIGITAL & CAD Radiology Report See Note (Normal) Comments: Exam Number: [id number] UNILATERAL RIGHT DIAGNOSTIC MAMMOGRAM A 90-degree lateral [...] ms werealso examined with computer-aided detection software (ImageEstrogen Gene Test, [employer] Inc[employer] Reported By: ELIEL ROSALES 71-Zmf-78841:33 [facility] DIGITAL & CAD Radiology Report See Note (Normal) Comments: Exam Number: [id number] MAMMOGRAM, BILATERAL SCREENING DIGITAL AND CAD HISTORYRoutine [...] mammograms werealso examined with computer-aided detection software ([employer].). Reported By: JONAH ARAYA M.D. 69-Bco-039898:02 Vitamin D Hydroxy (77691) Comments: PATIENT WAS FASTINGPERFORMED BY: Pacinian6370 [facility] [id number] Vitamin D, 25-Hydroxy 32.4 ng/mL (Normal) Range: 32.0-100.0 Comments: Recent studies consider the lower limit of 32.0 ng/mL to be athreshold for optimal health.Chilo SR. J Nutr. 2004;135(2):317-22. [id number]-[id number]:02 LIPID PANEL ([id number]) Comments: PATIENT WAS FASTINGPERFORMED BY: [employer] [id number] [facility] [id number] LDL Cholesterol Calc 136 mg/dL (Abnormal) Range: 0-99 LDL/HDL Ratio 2.6 {ratio_units} (Normal) Range: 0.0-3.2 VLDL Cholesterol Jerald 19 mg/dL (Normal) Range: 5-40 HDL Cholesterol 53 mg/dL (Normal) Comments: According to ATP-III Guidelines, HDL-C >59 mg/dL is considered anegative risk factor for CHD. Cholesterol, Total 208 mg/dL (Abnormal) Range: 100-199 Triglycerides 95 mg/dL (Normal) Range: 0-149 25-Ayv-964952:02 URINALYSIS, W/ MICRO ([id number]) Comments: PATIENT WAS FASTINGPERFORMED BY: [facility] [id number] Bilirubin Negative (Normal) Ketones Negative (Normal) Microscopic Examination See below: (Normal) Nitrite, Urine Negative (Normal) Occult Blood Trace (Abnormal) Urobilinogen,Semi-Qn 0.2 mg/dL (Normal) Range: 0.0-1.9 Appearance Cloudy (Abnormal) Glucose Negative (Normal) Protein Trace (Normal) Urine-Color Yellow (Normal) WBC Esterase 1+ (Abnormal) pH 6.0 (Normal) Range: 5.0-7.5 Specific [place] 1.029 (Normal) Range: 1.005-1.030 :02 TSH ([id number]) Comments: PATIENT WAS FASTINGPERFORMED BY: [facility] [id number] TSH 2.110 {uIU/mL} (Normal) Range: 0.450-4.500 :02 CBC WITH MANUAL DIFF Comments: PATIENT WAS FASTINGPERFORMED BY: [facility] [id number] Information: [id number] ([id number]) Baso (Absolute) 0.0 {x10E3/uL} (Normal) Range: 0.0-0.2 [...] 3.80-5.10 WBC 4.9 {x10E3/uL} (Normal) Range: 4.0-10.5 08-Uzl-387647:02 METABOLIC PANEL, COMPREHENSIVE Comments: PATIENT WAS FASTINGPERFORMED BY: [facility]bir4[facility] [id number] ([id number]) Alkaline Phosphatase, S 57 [iU]/L (Normal) Range: [...] without abnormal finding : *Well Female Maintenance ([facility]) Indication: Encounter for gynecological examination [...] Indication: Hyperlipidemia Planned Observations Thin prep Pap ([id number]) (no STD testing)Indication: Encounter for gynecological examination without abnormal finding On: 96-Iwz-73352:11 Request VITAMIN B-12 (CYANOCOBALAMIN) ([id number])Indication: B12 deficiency On: :23 Request Vitamin D Hydroxy (00822)Indication: Vitamin D deficiency, unspecified On: :23 Request C-REACTIVE PROTEIN ([id number])Indication: Mononucleosis On: :28 Request VITAMIN B-12 (CYANOCOBALAMIN) ([id number])Indication: B12 deficiency On: :27 Request Urinalysis, Office (60718)Indication: Lower urinary tract infection On: :25 Request URINE MARIA GUADALUPE CULTURE (SAPNA COL COUNT) ([id number])Indication: Lower urinary tract infection On: :25 Request Vitamin D Hydroxy (79438)Indication: Vitamin D deficiency, unspecified On: 5-Hjm-824524:22 Request Planned Procedures B 12 Injection, 1000 mcg (J3420)By: On: 12-Dec-2017 Intent Sveta Sofia DO, DO, Comments: 1 ml given lt dltd lot [id number] exp 06/01 Sveta DEXA SCAN AXIAL SKELETON ([id number])By: On: 12-Dec-2017 Sveta Samson DO, DO, Sveta SCREENING DIGITAL TOMOSYNTHESIS OF On: 12-Dec-2017 Intent BREAST ([id number])By: Maribell Call B 12 Injection, 1000 mcg (J3420)By: On: 16-Apr-2017 Sveta Samson DO, DO, Comments: vitamin b12 1000mcg injectionlot: [id number]: 06/2018L DELT IMpt tolerated wellAD OTM CONSULTANT Sveta ELECTROCARDIOGRAM, COMPLETE (ECG) On: 19-Mar-2017 Intent (50010)By: Sveta Sofia DO Comments: nsr no acute chg Sveta POLANCO MRI BRAIN W/ CONTRAST ([id number])By: On: 19-Mar-2017 Sveta Samson DO, DO, Kathleen Spirometry ([id number])By: Kimberlyn POLANCO On: 31-Aug-2016 Intent Sveta Colon DO Comments: normal great curve DEXA SCAN AXIAL SKELETON ([id number])By: On: 30-Mar-2016 Intent Sveta Sofia DO, DO, Kathleen MAMMOGRAM, SCREENING, BOTH BREAST On: 30-Mar-2016 Intent ([id number])By: Sveta Sofia DO, DO, Kathleen Aerosol Treatment (96061)By: Ciara On: 01-Jan-2015 Intent Gala PEÑA DIAGNOSTIC BILATERAL MAMMOGRAM On: 02-Apr-2014 Intent ([id number])By: Pau Mcghee DO Comments: right breast pain Spot Compression - RightBy: Taz POLANCO, On: 24-Mar-2014 Intent Pau Garcia MAMMOGRAM, SCREENING, BOTH BREAST On: 24-Mar-2014 Intent ([id number])By: Pau Mcghee DO Spirometry ([id number])By: Pau Mcghee DO On: 01-Apr-2013 Intent A Comments: good effort and curve normal Pulse Oximetry ([id number])By: Taz POLANCO, On: 01-Apr-2013 Intent Pau Garcia Comments: 98 Nuclear Stress Test/Stress On: 01-Apr-2013 Intent SPECT/AdenosineBy: Pau Mcghee DO Comments: knee issues Holter Monitor 24 hrsBy: Taz POLANCO, On: 01-Apr-2013 Intent Pau Garcia Echo CompleteBy: Pau Mcghee DO On: 01-Apr-2013 Intent EKG ([id number])By: Pau Mcghee DO On: 01-Apr-2013 Intent Comments: ekg showed normal sinus rhythym, normal axis, no acute st/t wave changes B 12 Injection, 1000 mcg (J3420)By: On: 22-Oct-2012 Intent Pau Mcghee DO Comments: lot: [id number]: 09/25site/route: L deltoid/IMamt: 1mLVIS signed when applicableChelsea, PRESIDENT & CEO MAMMOGRAM, SCREENING, BOTH BREASTS On: 05-Jun-2012 Intent ([id number])By: Pau Mcghee DO DXA, BONE DENSITY, AXIAL SKELETON On: 05-Jun-2012 Intent ([id number])By: Pau Mcghee DO Ultrasound - PelvisBy: Pau Mcghee DO On: 05-Jun-2012 Intent A Radiology - Lumbar SpineBy: Bonezzi On: 02-Aug-2010 Intent Gala PEÑA MAMMOGRAM, SCREENING, BOTH BREASTS On: 17-Mar-2009 Intent ([id number])By: Pau Mcghee DO Planned Medications Vitamin B-12 [...] is not using a End: 30-Mar-2016 12:09 mo method of contraception at this time. Patient [...] v icodin rarely when bad. using personnal wellness trainer. no radiculopathy. no b/b incontinence. hard [...]
--- OUTSIDE RECORDS SUMMARY | 2018-05-01 08:29 | XMS RPT_ITS | Continuity of Care Document ---
:1960 Author Organization [facility] Address [address] [facility] [address] [place] [address] Phone Care Team Providers Name Role Phone [...] Nasonex 50 MCG/ACT Nasal Suspension 1 (one) Wiggins each nostril daily for 0 days Quantity: [...] Comments:This order discontinued per [facility]. VITAMIN D, 84121GQYB (Oral Capsule) 1 (one) Capsule q week [...] W/WO Contrast Result: Comments: See Note; NOTES: [facility] Imaging Services [address] [place] [address] Brain W/WO Contrast MR#: [id number] Acct: [id number] Name: ADILIA GARDNER Rep #: [id number] : 1960 F 56 From: Darlene Perry MD PCP: Sveta Sofia DO Status: REG CLI Study: Brain W/WO Contrast Date of Exam: 03/29/17 Exam# [id number] Ordering Dr: Sveta Sofia DO STUDY: MRI [...] Service support , CC: Sveta Sofia DO Shingle Carrier: Signed 02-Apr-2014 Bilat Diag Digital AND CAD Result: Comments: See Note; NOTES: [facility] Imaging Services [address] [place] [address] Breast Imaging Report MR#: [id number] Acct: [id number] Name: ADILIA GARDNER Rep #: [id number] : 1960 F 53 From: Eliel Rosales MD PCP: Pau Mcghee DO Status: REG CLI Study: Bilat Diag Digital AND CAD Date of Exam: 04/02/14 Exam# [id number] Ordering Dr: Pau Mcghee DO MAMMOGRAPHY - [...] Eliel Rosales MD at 15:22 EST Tel [phone], Service support [phone], CC: Pau Mcghee DO Shingle Carrier: Signed 16-Apr-2013 Echocardiogram Complete Result: Comments: See Note; NOTES: [facility] Cardiovascular Services [address] [place] [address] Echo Complete 04/16/13 0921 MR#: [id number] Acct: [id number] Name: Landon GARDNER Rep #: [id number] : 1960 52 From: Zhou Childs MD Attending Dr: Pau Mcghee DO Status: REG CLI Ordering Dr: Pau Mcghee DO Date: 04/16/13 Location: [facility] Sex: F C Admitted: Salvador bateman This [...] Date Dictated: 04/16/13920 Date Transcribed: 04/16/13 1103 Shingle Carrier: Signed Family History Unknown Family Member Name [...] Status: 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 Non Smoker/No Tobacco Use Status: [...] Date Description Value Details :29 LIPID PANEL (59934) Comments: PATIENT WAS FASTINGPERFORMED BY: [facility] Iqaoqy1876 [facility] [id number] LDL/HDL Ratio 2.1 {ratio} (Normal) Range: 0.0-3.2 [...] Panel, Comprehensive Comments: PATIENT WAS FASTINGPERFORMED BY: [employer] SHEEXCaroMont Regional Medical Center [id number] (16369) ALT (SGPT) 12 [iU]/L (Normal) Range: 0-32 [...] 6-24 Glucose 86 mg/dL (Normal) Range: 65-99 16-Cxa-35780:29 CBC WITH MANUAL DIFF (38414) Comments: PATIENT WAS FASTINGPERFORMED BY: LabGlobalMotion[address] rubberitAtrium Health Kings Mountain [id number] Immature Grans (Abs) 0.0 {x10E3/uL} (Normal) Range: [...] 3.77-5.28 WBC 4.0 {x10E3/uL} (Normal) Range: 3.4-10.8 33-Lbo-54139:29 VITAMIN B-12 (CYANOCOBALAMIN) Comments: PATIENT WAS FASTINGPERFORMED BY: Consult A Doctor EvisorsBaptist Health Richmond [id number] (02363) Vitamin B12 349 pg/mL (Normal) Range: 232-1245 80-Uoa-949352:06 Microscopic Examination Comments: PATIENT WAS FASTINGPERFORMED BY: Consult A Doctor EDANrutgers - [facility] [place] [id number] Bacteria None seen (Normal) Mucus Threads Present (Normal) Epithelial Cells (non renal) 0-10 {/hpf} (Normal) Range: 0 - 10 RBC 0-2 {/hpf} (Normal) Range: 0 - 2 WBC 0-5 {/hpf} (Normal) Range: 0 - 5 12-Scq-876749:06 TSH (24792) Comments: PATIENT WAS FASTINGPERFORMED BY: [facility] [facility] [id number] TSH 2.200 {uIU/mL} (Normal) Range: 0.450-4.500 15-Fmb-864668:06 URINALYSIS, W/ MICRO (63418) Comments: PATIENT WAS FASTINGPERFORMED BY: [facility] [id number] Microscopic Examination See below: (Normal) Comments: Microscopic was indicated and was performed. Nitrite, Urine Negative (Normal) Urobilinogen,Semi-Qn 0.2 mg/dL (Normal) Range: 0.2-1.0 Bilirubin Negative (Normal) Occult Blood Negative (Normal) Ketones Negative (Normal) Glucose Negative (Normal) Protein Negative (Normal) WBC Esterase 1+ (Abnormal) Appearance Clear (Normal) Urine-Color Yellow (Normal) pH 5.5 (Normal) Range: 5.0-7.5 Specific [place] 1.024 (Normal) Range: 1.005-1.030 94-Xsj-738349:06 MICROALBUMIN: CREATININE RATIO Comments: PATIENT WAS FASTINGPERFORMED BY: [facility] [facility] [id number] (07512) AND (65733) Alb/Creat Ratio 4.6 {mg/g_creat} (Normal) Range: 0.0-30.0 Albumin, Urine 7.3 ug/mL (Normal) Creatinine, Urine 160.4 mg/dL (Normal) 48-Och-732364:06 METABOLIC PANEL, COMPREHENSIVE Comments: PATIENT WAS FASTINGPERFORMED BY: [facility] [id number] (94098) ALT (SGPT) 22 [iU]/L (Normal) Range: 0-32 [...] Glucose, Serum 90 mg/dL (Normal) Range: 65-99 30-Vji-725068:06 CBC W/AUTO DIFF WBC (04828) Comments: PATIENT WAS FASTINGPERFORMED BY: LabCoAcuteCare Health SystemMchsnq8974 [facility] [id number] Immature Grans (Abs) 0.0 {x10E3/uL} (Normal) Range: [...] 3.77-5.28 WBC 4.6 {x10E3/uL} (Normal) Range: 3.4-10.8 24-Kyv-731084:06 VITAMIN B-12 (CYANOCOBALAMIN) Comments: PATIENT WAS FASTINGPERFORMED BY: [employer] LabVirgin Mobile Latin AmericaAcuteCare Health SystemFqbdcw0637 [facility] [id number] (30893) Vitamin B12 332 pg/mL (Normal) Range: 232-1245 37-Iwm-352925:06 LIPID PANEL (88482) Comments: PATIENT WAS FASTINGPERFORMED BY: LabCoAcuteCare Health SystemDiasoi7345 [facility] [id number]; fu 3-5 KF LDL/HDL Ratio 2.1 {ratio_units} [...] Cholesterol, Total 232 mg/dL (Abnormal) Range: 100-199 22-Lfr-62234:04 HPV automatic Comments: Source.............Cervix;EndocervixNo. of containers..01 CYTYC Thin Prep VialPATIENT NOT FASTINGPERFORMED BY: WB [facility] Kevin Perry [place] [id number] BY: =G [facility] (23017) rp Kevin Perry [place] [id number] Information: [id number] HPV, high-risk Negative Comments: This high-risk HPV [...] Cytot echnologist (ASCP) :41 HgA1C , Office (49962) HgA1C , Office 5.4 % (Normal) Range: 4.6 - 7.1 :32 Urinalysis, Office (08488) UA - LEUKOCYTE ESTERASE Moderate (Normal) UA [...] COLON BIOPSY (CHOOSE See Note (Normal) Comments: [facility] [address] [place], [address] 0 SITE) Comments: Patient: ADILIA GARDNER : 1960 (55/F) Acct Num: [id number] Phys: Terrence Wright Unit Num: [id number] Loc: [facility] Specimen: [id number] Received: 10/15/15 - 1507 Spec Type: COLON [...] o ne cassette. / SJ:jericho 10/19/15 TC:1 CPT:86533 x2 HEADER OPERATION: Colonoscopy with biopsies PRE-OP DIAGNOSIS: Screening/polyp TISSUE SUBMITTED: A - Cecum polyp biopsies, rule out adenoma, B - Sigmoid/rectum polyps biopsies, rule out adenoma MICROSCOPIC DESCRIPTION Slides are reviewed. MICROSCOPIC DIAGNOSIS A. Cecum polyp, biopsy: Fragments of tubular adenoma. B. Sigmo id/rectum polyps, biopsy: Tubular adenoma. Hyperplastic polyp. SJ:jericho 10/20/15 Signed Davie Marcano 10/20/15 <signature on file> :34 LIPID PANEL (77516) Comments: PATIENT WAS FASTINGPERFORMED BY: [facility] Maizdz7329 [facility] [id number]; will review on 03/30 LDL/HDL Ratio 1.9 [...] 202 mg/dL (Abnormal) Range: 100-199 :34 CALCIFIDIOL (24959) VIT D 25 Comments: PATIENT WAS FASTINGPERFORMED BY: [facility]6[address] [facility] [id number] Vitamin D, 25-Hydroxy 34.0 ng/mL (Normal) Range: 30.0-100.0 Comments: Vitamin D deficiency has been defined by the Dixon ofMedicine and an Endocrine Society practice guideline as alevel of serum 25-OH vitamin D less than 20 ng/mL (1,2).The Endocrine Society went on to further define vitamin Dinsufficiency as a level between 21 and 29 ng/mL (2).1. IOM (Dixon of Medicine). 2010. Dietary reference intakes for calcium and D. [place]: The National Academies Press.2. Bernardo MF, Darwin ANGELO, Ramona BENZ, et al. Evaluation, treatment, and prevention of vitamin D deficiency: an Endocrine Society clinical practice guideline. JCEM. 2010; 96(7):1911-30. :34 VITAMIN B-12 (CYANOCOBALAMIN) Comments: PATIENT WAS FASTINGPERFORMED BY: [facility] Rtusol0931 [facility] [id number] (27053) Vitamin B12 399 pg/mL (Normal) Range: 211-946 83-Lcf-086362:47 Pathology Report Comments: PERFORMED BY: OrnisCYT LabKentucky [facility] Cyto Wrmpm58370 [facility] [id number] BY: [facility] Dermatopathology Lcplhka[address] [id number] Information: [id number] See MATER Comments: Material submitted: .SHAVE BIOPSY [...] IS BISECTED AND SUBMITTED INTOTO.XJW/HAOSPathologist provided ICD-9:173.52CPT .618500 01-Hyw-260628:42 TSH (10561) Comments: PATIENT WAS FASTINGPERFORMED BY: [facility]Three [facility]6370 [facility] [id number] TSH 2.050 {uIU/mL} (Normal) Range: 0.450-4.500 67-Myp-237120:42 CBC WITH MANUAL DIFF Comments: PATIENT WAS FASTINGPERFORMED BY: LabThree [facility] Hospital6370 [facility] [id number] Information: [id number] (60593) Immature Grans (Abs) 0.0 {x10E3/uL} (Normal) Range: [...] 3.77-5.28 WBC 4.2 {x10E3/uL} (Normal) Range: 3.4-10.8 56-Oxu-176097:42 Metabolic Panel, Comprehensive Comments: PATIENT WAS FASTINGPERFORMED BY: LabCoAcuteCare Health SystemPlomnf2309 [facility] [id number] (05697) ALT (SGPT) 16 [iU]/L (Normal) Range: 0-32 [...] Glucose, Serum 87 mg/dL (Normal) Range: 65-99 57-Apx-610717:42 Lipid Panel (20420) Comments: PATIENT WAS FASTINGPERFORMED BY: mangofizz jobsAtrium Health Kings Mountain [id number] LDL/HDL Ratio 2.4 {ratio_units} (Normal) Range: 0.0-3.2 [...] Cholesterol, Total 212 mg/dL (Abnormal) Range: 100-199 68-Ung-240846:42 CALCIFEDIOL (75827) Comments: PATIENT WAS FASTINGPERFORMED BY: [employer] [facility] [id number] Vitamin D, 25-Hydroxy 42.0 ng/mL (Normal) Range: 30.0-100.0 Comments: Vitamin D deficiency has been defined by the Dixon ofMedicine and an Endocrine Society practice guideline as alevel of serum 25-OH vitamin D less than 20 ng/mL (1,2).The Endocrine Society went on to further define vitamin Dinsufficiency as a level between 21 and 29 ng/mL (2).1. IOM (Dixon of Medicine). 2010. Dietary reference intakes for calcium and D. [place]: The National Academies Press.2. Darwin Read, Ramona BENZ, et al. Evaluation, treatment, and prevention of vitamin D deficiency: an Endocrine Society clinical practice guideline. JCEM. 2010; 96(7):1911-30. :42 Vitamin B-12 (cyanocobalamin) Comments: PATIENT WAS FASTINGPERFORMED BY: CB [facility] Rlwlgs3906 [address] RoadDublin [place] [id number] (07552) Vitamin B12 518 pg/mL (Normal) Range: 211-946 :33 Vitamin D Hydroxy (51555) Comments: PATIENT WAS FASTINGPERFORMED BY: CB [facility] Tkhata9248 [address]no RoadDublin [place] [id number] Vitamin D, 25-Hydroxy 34.7 ng/mL (Normal) Range: 30.0-100.0 Comments: Vitamin D deficiency has been defined by the Dixon ofMedicine and an Endocrine Society practice guideline as alevel of serum 25-OH vitamin D less than 20 ng/mL (1,2).The Endocrine Society went on to further define vitamin Dinsufficiency as a level between 21 and 29 ng/mL (2).1. IOM (Dixon of Medicine). 2010. Dietary reference intakes for calcium and D. [place]: The National Academies Press.2. Darwin Read, Ramona BENZ, et al. Evaluation, treatment, and prevention of vitamin D deficiency: an Endocrine Society clinical practice guideline. JCEM. 2010; 96(7):1911-. :33 VITAMIN B-12 (CYANOCOBALAMIN) Comments: PATIENT WAS FASTINGPERFORMED BY: CB [facility] Yahdnz3470 [address] RoadDublin [place] [id number] (44030) Vitamin B12 376 pg/mL (Normal) Range: 211-946 :33 LIPID PANEL (25222) Comments: PATIENT WAS FASTINGPERFORMED BY: CB [facility] Kbmwxm5710 [facility] [id number] LDL/HDL Ratio 1.8 {ratio_units} (Normal) Range: 0.0-3.2 LDL Cholesterol Calc 131 mg/dL (Abnormal) Range: 0-99 HDL Cholesterol 74 mg/dL (Normal) Comments: According to ATP-III Guidelines, HDL-C >59 mg/dL is considered anegative risk factor for CHD. VLDL Cholesterol Jerald 14 mg/dL (Normal) Range: 5-40 Triglycerides 72 mg/dL (Normal) Range: 0-149 Cholesterol, Total 219 mg/dL (Abnormal) Range: 100-199 23-Ieh-20632:33 CBC WITH MANUAL DIFF Comments: PATIENT WAS FASTINGPERFORMED BY: [employer] Uciifm6747 [facility] [id number] Information: [id number] (29715) Immature Grans (Abs) 0.0 {x10E3/uL} (Normal) Range: [...] PANEL, COMPREHENSIVE Comments: PATIENT WAS FASTINGPERFORMED BY: LabCoAcuteCare Health SystemZvqica5500 [facility] [id number] (82364) ALT (SGPT) 14 [iU]/L (Normal) Range: 0-32 [...] TROPONIN, QUANTITATIVE Comments: PATIENT WAS FASTINGPERFORMED BY: [facility] [id number] (aka Troponin I) (10434) Troponin I <0.01 ng/mL (Normal) Range: 0.00-0.04 :33 TSH (56988) Comments: PATIENT WAS FASTINGPERFORMED BY: LabGold[facility] Xmesco2117 [facility] [id number] TSH 2.150 {uIU/mL} (Normal) Range: 0.450-4.500 90-Qfe-318344:42 URINE MARIA GUADALUPE CULTURE-SAPNA COL Comments: PATIENT NOT FASTINGPERFORMED BY: [place] 1723370 [facility] [id number] Information: SRC:[facility] V35000 COUNT (62957) Result 1 MUG (Normal) Comments: Mixed urogenital flora6,000 Colonies/mL Urine Culture,Comprehensive Final report (Normal) :52 Microscopic Examination Comments: PATIENT WAS FASTINGPERFORMED BY: [facility]6[address] [facility] [id number] Bacteria Few (Normal) Mucus Threads Present (Normal) Epithelial Cells (non renal) 0-10 {/hpf} (Normal) Range: 0 - 10 RBC 0-3 {/hpf} (Normal) Range: 0 - 3 WBC 11-30 {/hpf} (Abnormal) Range: 0 - 5 :52 T3, FREE (TRIDOTHYRONINE) (11585) Comments: PATIENT WAS FASTINGPERFORMED BY: [facility]6[address] [facility] [id number] Triiodothyronine,Free,Serum 2.4 pg/mL (Normal) Range: 2.0-4.4 :52 T4, FREE (THYROXINE) (50398) Comments: PATIENT WAS FASTINGPERFORMED BY: [facility]6[address] [facility] [id number] T4,Free(Direct) 1.06 ng/dL (Normal) Range: 0.82-1.77 :52 Creatine Kinase Total (14175) Comments: PATIENT WAS FASTINGPERFORMED BY: [employer] Qnlvrv4351 [facility] [id number] Creatine Kinase,Total,Serum 119 U/L (Normal) Range: 24-173 :52 URINALYSIS, W/ MICRO (30931) Comments: PATIENT WAS FASTINGPERFORMED BY: [employer] Ejlwno1484 [facility] [id number] Microscopic Examination See below: (Normal) Nitrite, Urine Negative (Normal) Urobilinogen,Semi-Qn 0.2 mg/dL (Normal) Range: 0.0-1.9 Bilirubin Negative (Normal) Occult Blood Negative (Normal) Ketones Negative (Normal) Glucose Negative (Normal) Protein Negative (Normal) WBC Esterase 2+ (Abnormal) Appearance Clear (Normal) Urine-Color Yellow (Normal) pH 6.0 (Normal) Range: 5.0-7.5 Specific [place] 1.014 (Normal) Range: 1.005-1.030 :52 LIPID PANEL (64314) Comments: PATIENT WAS FASTINGPERFORMED BY: [employer] Spfrxi8806 [facility] [id number] LDL/HDL Ratio 3.2 {ratio_units} (Normal) Range: 0.0-3.2 LDL Cholesterol Calc 125 mg/dL (Abnormal) Range: 0-99 HDL Cholesterol 39 mg/dL (Abnormal) Comments: According to ATP-III Guidelines, HDL-C >59 mg/dL is considered anegative risk factor for CHD. VLDL Cholesterol Jerald 17 mg/dL (Normal) Range: 5-40 Cholesterol, Total 181 mg/dL (Normal) Range: 100-199 Triglycerides 84 mg/dL (Normal) Range: 0-149 :52 Vitamin D Hydroxy (89524) Comments: PATIENT WAS FASTINGPERFORMED BY: MobiMagicAcuteCare Health SystemFdhgsz8710 [facility] [id number] Vitamin D, 25-Hydroxy 44.9 ng/mL (Normal) Range: 30.0-100.0 Comments: Vitamin D deficiency has been defined by the Dixon ofMedicine and an Endocrine Society practice guideline as alevel of serum 25-OH vitamin D less than 20 ng/mL (1,2).The Endocrine Society went on to further define vitamin Dinsufficiency as a level between 21 and 29 ng/mL (2).1. IOM (Dixon of Medicine). 2010. Dietary reference intakes for calcium and D. [place]: The National Academies Press.2. Bernardo MF, Darwin ANGELO, Ramona BENZ, et al. Evaluation, treatment, and prevention of vitamin D deficiency: an Endocrine Society clinical practice guideline. JCEM. 2010; 96(7):1911-30. :52 VITAMIN B-12 (CYANOCOBALAMIN) Comments: PATIENT WAS FASTINGPERFORMED BY: mangofizz jobsAtrium Health Kings Mountain [id number] (96450) Vitamin B12 290 pg/mL (Normal) Range: 211-946 :52 EBV Panel (33073) Comments: PATIENT WAS FASTINGPERFORMED BY: [employer] [facility] [id number] Interpretation: SPRCS (Normal) Comments: EBV Interpretation Chart [...] <0.9 Equivocal 0.9 - 1.0 Positive >1.0 01-Bmm-46427:52 CBC WITH MANUAL DIFF Comments: PATIENT WAS FASTINGPERFORMED BY: [facility] Hospital6370 [facility] [id number] Information: [id number] (64731) Immature Grans (Abs) 0.0 {x10E3/uL} (Normal) Range: [...] COMPREHENSIVE Comments: PATIENT WAS FASTINGPERFORMED BY: [facility] Trkrsq1535 [facility] [id number] (28687) ALT (SGPT) 16 [iU]/L (Normal) Range: 0-32 [...] 93 mg/dL (Normal) Range: 65-99 :52 TSH (54108) Comments: PATIENT WAS FASTINGPERFORMED BY: [facility] Cylokk0421 [address]blin [place] [id number] TSH 2.110 {uIU/mL} (Normal) Range: 0.450-4.500 :52 SED RATE ERYTHROCYTE (98786) Comments: PATIENT WAS FASTINGPERFORMED BY: [facility] Bnmpfr4316 [facility] [id number] Sedimentation Rate-Westergren 27 mm/h (Normal) Range: 0-40 :52 C-REACTIVE PROTEIN (64545) Comments: PATIENT WAS FASTINGPERFORMED BY: [facility] Xaiebk[address] [facility]in [place] [id number] C-Reactive Protein, Quant 59.8 mg/L (Abnormal) Range: 0.0-4.9 6-Lur-799667:41 DEXA BONE DENSITY STUDY (HP) Radiology Report [...] Rosales M.D.June 18, 2012 at 1:43:18 PM [id number] Signed GP/GP If you are the referring physician and would like to consult with theradiologist who provided this interpretation, please contact Viry Veliz at [phone]. If this radiologist is unavailable, youwill be directed to another radiologist to assist. If you are a patient with a question regarding this report, pleasecont actyour referring physician directly. Professional Interpretation Provided By: [employer]k, Phone , These documents contain legally protected [...] 06/18/12 1346 Sign by: Eliel Rosales MD 2-Wcb-428020:40 BILAT SCRN DIGITAL & CAD Radiology Report [...] Rosales M.D.June 18, 2012 at 12:14:10 PM [id number] Signed GP/GP If you are the referrin g physician and would like to consult with theradiologist who provided this interpretation, please contact Viry Veliz at [phone]. If this radiologist is unavailable, youwill be [...] 06/18/12 1227 Sign by: Eliel Rosales MD 7-Xgq-121230:40 PELVIC (NON ) Radiology Report See Note [...] Rosales M.D.June 18, 2012 at 1:52:03 PM [id number] Signed GP/GP If you are the referring physician and would like to consult with theradiologist who provid ed this interpretation, please contact Viry Veilz at [phone]. If this radiologist is unavailable, youwill be directed to another radiologist to assist. If you are a patient with a ques tion regarding this report, pleasecontactyour referring physician directly. Professional Interpretation Provided By: [employer], Phone , These documents contain legally pr [...] Rosales M.D.June 18, 2012 at 1:52:03 PM [id number] Signed GP/GP If you are the referring physician and would like to consult with theradiologist who provid ed this interpretation, please contact Viry Veliz at [phone]. If this radiologist is unavailable, youwill be directed to another radiologist to assist. If you are a patient with a ques tion regarding this report, pleasecontactyour referring physician directly. Professional Interpretation Provided By: [employer], Phone , These documents contain legally pr [...] 06/18/12 135 Sign by: Eliel Rosales MD 11-Qih-443706:34 L/S SPINE,MIN 4 VIEWS Radiology Report See [...] 08/02/10 1606 Sign by: Andre Antonio MD 5-Ckg-988392:46 Microscopic Examination Comments: PERFORMED BY: [facility]6370 [facility] [id number] Bacteria None seen (Normal) Crystal Type Amorphous Sediment (Normal) Crystals Present (Abnormal) Mucus Threads Present (Normal) Epithelial Cells (non renal) 0-10 {/hpf} (Normal) Range: 0 - 10 RBC 0-3 {/hpf} (Normal) Range: 0 - 3 WBC 0-5 {/hpf} (Normal) Range: 0 - 5 0-Cml-797756:46 Urinalysis, Routine Comments: PERFORMED BY: [employer] [facility] [id number] Information: SRC:UR Bilirubin Negative (Normal) Microscopic Examination See below: (Normal) Nitrite, Urine Negative (Normal) Urobilinogen,Semi-Qn 0.2 mg/dL (Normal) Range: 0.0-1.9 Glucose Negative (Normal) Ketones Negative (Normal) Occult Blood Negative (Normal) Appearance Clear (Normal) pH 6.0 (Normal) Range: 5.0-7.5 Protein Negative (Normal) Urine-Color Yellow (Normal) WBC Esterase Trace (Abnormal) Specific [place] 1.023 (Normal) Range: 1.005-1.030 0-Eej-862757:46 Urine Culture,Comprehensive Comments: PERFORMED BY: [employer] [facility] [id number] Result 1 MUG (Normal) Comments: Mixed urogenital flora10,000-25,000 colony forming units per mL Urine Final report (Normal) Culture,Comprehensive 6-Rkx-266611:18 Urinalysis, Office (38890) UA - LEUKOCYTE ESTERASE Small (Normal) UA - NITRITE Negative (Normal) URINE UROBILINGN SAPNA TIMED Normal mg/dL (Normal) Comments: 0.2 UA - PROTEIN Trace mg/dL (Normal) UA - PH 6.0 (Normal) UA - BLOOD Negative (Normal) UA - SPECIFIC GRAVITY 1.025 (Normal) UA - KETONES Negative mg/dL (Normal) UA - BILIRUBIN Negative (Normal) UA - GLUCOSE Negative (Normal) 73-Lqz-478080:02 Microscopic Examination Comments: PATIENT WAS FASTINGPERFORMED BY: [employer] [facility] [id number] Bacteria None seen (Normal) Crystal Type Amorphous Sediment (Normal) Crystals Present (Abnormal) Mucus Threads Present (Normal) Epithelial Cells (non renal) >10 {/hpf} (Abnormal) Range: 0 - 10 RBC 0-3 {/hpf} (Normal) Range: 0 - 3 WBC 6-10 {/hpf} (Abnormal) Range: 0 - 5 17-Gvm-79459:03 UNILAT DIA DIGITAL & CAD Radiology Report See Note (Normal) Comments: Exam Number: [id number] UNILATERAL RIGHT DIAGNOSTIC MAMMOGRAM A 90-degree lateral [...] ms werealso examined with computer-aided detection software ([employer] Reported By: ELIEL ROSALES 86-Yjp-61334:33 [facility] DIGITAL & CAD Radiology Report See Note (Normal) Comments: Exam Number: [id number] MAMMOGRAM, BILATERAL SCREENING DIGITAL AND CAD HISTORYRoutine [...] mammograms werealso examined with computer-aided detection software ([employer].). Reported By: JONAH ARAYA M.D. 86-Gvu-141023:02 Vitamin D Hydroxy (19170) Comments: PATIENT WAS FASTINGPERFORMED BY: [facility]6370 [facility] [id number] Vitamin D, 25-Hydroxy 32.4 ng/mL (Normal) Range: 32.0-100.0 Comments: Recent studies consider the lower limit of 32.0 ng/mL to be athreshold for optimal health.Chilo SR. J Nutr. 2004;135(2):317-22. 50-Oox-588375:02 LIPID PANEL (15395) Comments: PATIENT WAS FASTINGPERFORMED BY: [employer] Ukuylj9351 [facility] [id number] LDL Cholesterol Calc 136 mg/dL (Abnormal) Range: 0-99 LDL/HDL Ratio 2.6 {ratio_units} (Normal) Range: 0.0-3.2 VLDL Cholesterol Jerald 19 mg/dL (Normal) Range: 5-40 HDL Cholesterol 53 mg/dL (Normal) Comments: According to ATP-III Guidelines, HDL-C >59 mg/dL is considered anegative risk factor for CHD. Cholesterol, Total 208 mg/dL (Abnormal) Range: 100-199 Triglycerides 95 mg/dL (Normal) Range: 0-149 91-Akl-681006:02 URINALYSIS, W/ MICRO (06505) Comments: PATIENT WAS FASTINGPERFORMED BY: [facility]6370 [facility] [id number] Bilirubin Negative (Normal) Ketones Negative (Normal) Microscopic Examination See below: (Normal) Nitrite, Urine Negative (Normal) Occult Blood Trace (Abnormal) Urobilinogen,Semi-Qn 0.2 mg/dL (Normal) Range: 0.0-1.9 Appearance Cloudy (Abnormal) Glucose Negative (Normal) Protein Trace (Normal) Urine-Color Yellow (Normal) WBC Esterase 1+ (Abnormal) pH 6.0 (Normal) Range: 5.0-7.5 Specific [place] 1.029 (Normal) Range: 1.005-1.030 :02 TSH ([id number]) Comments: PATIENT WAS FASTINGPERFORMED BY: [facility] [facility] [id number] TSH 2.110 {uIU/mL} (Normal) Range: 0.450-4.500 :02 CBC WITH MANUAL DIFF Comments: PATIENT WAS FASTINGPERFORMED BY: [facility] [facility] [id number] Information: [id number] ([id number]) Baso (Absolute) 0.0 {x10E3/uL} (Normal) Range: 0.0-0.2 [...] 3.80-5.10 WBC 4.9 {x10E3/uL} (Normal) Range: 4.0-10.5 33-Bqc-356202:02 METABOLIC PANEL, COMPREHENSIVE Comments: PATIENT WAS FASTINGPERFORMED BY: [facility] [facility] [id number] ([id number]) Alkaline Phosphatase, S 57 [iU]/L (Normal) Range: [...] without abnormal finding : *Well Female Maintenance ([facility]) Indication: Encounter for gynecological examination without [...] Indication: Hyperlipidemia Planned Observations Thin prep Pap ([id number]) (no STD testing)Indication: Encounter for gynecological examination without abnormal finding On: 23-Lyl-76133:11 Request VITAMIN B-12 (CYANOCOBALAMIN) ([id number])Indication: B12 deficiency On: :23 Request Vitamin D Hydroxy ([id number])Indication: Vitamin D deficiency, unspecified On: :23 Request C-REACTIVE PROTEIN ([id number])Indication: Mononucleosis On: :28 Request VITAMIN B-12 (CYANOCOBALAMIN) ([id number])Indication: B12 deficiency On: :27 Request Urinalysis, Office ([id number])Indication: Lower urinary tract infection On: :25 Request URINE MARIA GUADALUPE CULTURE (SAPNA COL COUNT) ([id number])Indication: Lower urinary tract infection On: :25 Request Vitamin D Hydroxy ([id number])Indication: Vitamin D deficiency, unspecified On: 2-Wsp-857151:22 Request Planned Procedures B 12 Injection, 1000 mcg ([id number])By: On: 12-Dec-2017 Intent Sveta Sofia DO, DO, Comments: 1 ml given lt dltd lot [id number] exp 06/01 Sveta DEXA SCAN AXIAL SKELETON ([id number])By: On: 12-Dec-2017 Sveta Samson DO, DO, Sveta SCREENING DIGITAL TOMOSYNTHESIS OF On: 12-Dec-2017 Intent BREAST ([id number])By: Maribell Call B 12 Injection, 1000 mcg ([id number])By: On: 16-Apr-2017 Sveta Samson DO, DO, Comments: vitamin b12 1000mcg injectionlot: [id number]: 06/2018L DELT IMpt tolerated wellAD 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 SURFACER Sveta ELECTROCARDIOGRAM, COMPLETE (ECG) On: 19-Mar-2017 Intent ([id number])By: Sveta Sofia DO Comments: nsr no acute chg Sveta POLANCO MRI BRAIN W/ CONTRAST ([id number])By: On: 19-Mar-2017 Sveta Sasmon DO, DO, Kathleen Spirometry ([id number])By: Kimberlyn POLANCO On: 31-Aug-2016 Intent Sveta Colon DO Comments: normal great curve DEXA SCAN AXIAL SKELETON ([id number])By: On: 30-Mar-2016 Intent Sveta Sofia DO, DO, Kathleen MAMMOGRAM, SCREENING, BOTH BREAST On: 30-Mar-2016 Intent ([id number])By: Sveta Sofia DO, DO, Kathleen Aerosol Treatment ([id number])By: Ciara On: 01-Jan-2015 Intent Gala PEÑA DIAGNOSTIC BILATERAL MAMMOGRAM On: 02-Apr-2014 Intent ([id number])By: Pau Mcghee DO Comments: right breast pain Spot Compression - RightBy: Taz POLANCO, On: 24-Mar-2014 Intent Pau Garcia MAMMOGRAM, SCREENING, BOTH BREAST On: 24-Mar-2014 Intent ([id number])By: Pau Mcghee DO Spirometry ([id number])By: Pau Mcghee DO On: 01-Apr-2013 Intent A Comments: good effort and curve normal Pulse Oximetry ([id number])By: Taz POLANCO, On: 01-Apr-2013 Intent Pau Garcia Comments: 98 Nuclear Stress Test/Stress On: 01-Apr-2013 Intent SPECT/AdenosineBy: Pau Mcghee DO Comments: knee issues Holter Monitor 24 hrsBy: Taz POLANCO, On: 01-Apr-2013 Intent Pau Garcia Echo CompleteBy: Pau Mcghee DO On: 01-Apr-2013 Intent EKG ([id number])By: Pau Mcghee DO On: 01-Apr-2013 Intent Comments: ekg showed normal sinus rhythym, normal axis, no acute st/t wave changes B 12 Injection, 1000 mcg ([id number])By: On: 22-Oct-2012 Intent Pau Mcghee DO Comments: lot: [id number]: 09/25site/route: L deltoid/IMamt: 1mLVIS signed when applicableChelsea, FABRIC CUTTER MAMMOGRAM, SCREENING, BOTH BREASTS On: 05-Jun-2012 Intent ([id number])By: Pau Mcghee DO DXA, BONE DENSITY, AXIAL SKELETON On: 05-Jun-2012 Intent ([id number])By: Pau Mcghee DO Ultrasound - PelvisBy: Pau Mcghee DO On: 05-Jun-2012 Intent A Radiology - Lumbar SpineBy: Bonezzi On: 02-Aug-2010 Intent Gala PEÑA MAMMOGRAM, SCREENING, BOTH BREASTS On: 17-Mar-2009 Intent ([id number])By: Pau Mcghee DO Planned Medications Vitamin B-12 [...] is not using a End: 30-Mar-2016 12:09 hi method of contraception at this time. Patient [...] v icodin rarely when bad. 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 no radiculopathy. no b/b incontinence. hard [...]
--- OUTSIDE RECORDS SUMMARY | 2018-05-01 08:30 | XMS RPT_ITS | Continuity of Care Document ---
:1960 Author Organization [facility] Address [address] [place] [address] Phone Care Team Providers Name Role Phone [...] Nasonex 50 MCG/ACT Nasal Suspension 1 (one) Patterson each nostril daily for 0 days Quantity: [...] Comments:This order discontinued per [employer]. VITAMIN D, 75397TAIB (Oral Capsule) 1 (one) Capsule q week [...] W/WO Contrast Result: Comments: See Note; NOTES: [facility] Imaging Services [address] [place] [address] Brain W/WO Contrast MR#: [id number] Acct: [id number] Name: ADILIA GARDNER Rep #: [id number] : 1960 F 56 From: Darlene Perry MD PCP: Sveta Sofia DO Status: REG CLI Study: Brain W/WO Contrast Date of Exam: 03/29/17 Exam# [id number] Ordering Dr: Sveta Sofia DO STUDY: MRI [...] Service support , CC: Sveta Sofia DO Healthcare Prof: Signed 02-Apr-2014 Bilat Diag Digital AND CAD Result: Comments: See Note; NOTES: [facility] Imaging Services [address] [place] [address] Breast Imaging Report MR#: [id number] Acct: [id number] Name: ADILIA GARDNER Rep #: [id number] : 1960 F 53 From: Eliel Rosales MD PCP: Pau Mcghee DO Status: REG CLI Study: Bilat Diag Digital AND CAD Date of Exam: 04/02/14 Exam# [id number] Ordering Dr: Pau Mcghee DO MAMMOGRAPHY - [...] Eliel Rosales MD at 15:22 EST Tel [phone], Service support [phone], CC: Pau Mcghee DO Healthcare Prof: Signed 16-Apr-2013 Echocardiogram Complete Result: Comments: See Note; NOTES: 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 [id number] LDL/HDL Ratio 2.1 {ratio} (Normal) Range: 0.0-3.2 [...] Panel, Comprehensive Comments: PATIENT WAS FASTINGPERFORMED BY: [employer]idSchool70 [address] RelayrAt[facility] [id number] (05854) ALT (SGPT) 12 [iU]/L (Normal) Range: 0-32 [...] 6-24 Glucose 86 mg/dL (Normal) Range: 65-99 40-Vgt-30271:29 CBC WITH MANUAL DIFF (73860) Comments: PATIENT WAS FASTINGPERFORMED BY: LabInnofidei70 [place] OcisionAt[facility] [id number] Immature Grans (Abs) 0.0 {x10E3/uL} (Normal) Range: [...] 3.77-5.28 WBC 4.0 {x10E3/uL} (Normal) Range: 3.4-10.8 55-Npy-59821:29 VITAMIN B-12 (CYANOCOBALAMIN) Comments: PATIENT WAS FASTINGPERFORMED BY: [employer] Ext[facility] [id number] (59904) Vitamin B12 349 pg/mL (Normal) Range: 232-1245 15-Nwf-634397:06 Microscopic Examination Comments: PATIENT WAS FASTINGPERFORMED BY: [facility] [facility] [place] [id number] Bacteria None seen (Normal) Mucus Threads Present (Normal) Epithelial Cells (non renal) 0-10 {/hpf} (Normal) Range: 0 - 10 RBC 0-2 {/hpf} (Normal) Range: 0 - 2 WBC 0-5 {/hpf} (Normal) Range: 0 - 5 21-Xqv-975601:06 TSH (58046) Comments: PATIENT WAS FASTINGPERFORMED BY: [facility] [facility] [id number] TSH 2.200 {uIU/mL} (Normal) Range: 0.450-4.500 30-Erl-126070:06 URINALYSIS, W/ MICRO (89248) Comments: PATIENT WAS FASTINGPERFORMED BY: [facility] [facility] [id number] Microscopic Examination See below: (Normal) Comments: Microscopic was indicated and was performed. Nitrite, Urine Negative (Normal) Urobilinogen,Semi-Qn 0.2 mg/dL (Normal) Range: 0.2-1.0 Bilirubin Negative (Normal) Occult Blood Negative (Normal) Ketones Negative (Normal) Glucose Negative (Normal) Protein Negative (Normal) WBC Esterase 1+ (Abnormal) Appearance Clear (Normal) Urine-Color Yellow (Normal) pH 5.5 (Normal) Range: 5.0-7.5 Specific [place] 1.024 (Normal) Range: 1.005-1.030 16-Tpo-724071:06 MICROALBUMIN: CREATININE RATIO Comments: PATIENT WAS FASTINGPERFORMED BY: [facility]6[address] [facility] [id number] (16453) AND (06891) Alb/Creat Ratio 4.6 {mg/g_creat} (Normal) Range: 0.0-30.0 Albumin, Urine 7.3 ug/mL (Normal) Creatinine, Urine 160.4 mg/dL (Normal) 32-Ozz-045421:06 METABOLIC PANEL, COMPREHENSIVE Comments: PATIENT WAS FASTINGPERFORMED BY: [facility] [facility] [id number] (90077) ALT (SGPT) 22 [iU]/L (Normal) Range: 0-32 [...] Glucose, Serum 90 mg/dL (Normal) Range: 65-99 39-Kum-102851:06 CBC W/AUTO DIFF WBC (28404) Comments: PATIENT WAS FASTINGPERFORMED BY: [facility]Co[facility]Jnkegd0288 [facility] [id number] Immature Grans (Abs) 0.0 {x10E3/uL} (Normal) Range: [...] 3.77-5.28 WBC 4.6 {x10E3/uL} (Normal) Range: 3.4-10.8 54-Mdc-531315:06 VITAMIN B-12 (CYANOCOBALAMIN) Comments: PATIENT WAS FASTINGPERFORMED BY: Fresh ! LabFashion MovementJefferson Strat[facility])Vvdxkg8938 [facility] [id number] (72303) Vitamin B12 332 pg/mL (Normal) Range: 232-1245 15-Rjm-689555:06 LIPID PANEL (79393) Comments: PATIENT WAS FASTINGPERFORMED BY: [facility]Co[facility])Azyhie0853 [facility] [id number]; fu 3-5 KF LDL/HDL Ratio 2.1 {ratio_units} [...] Cholesterol, Total 232 mg/dL (Abnormal) Range: 100-199 63-Ejl-47105:04 HPV automatic Comments: Source.............Cervix;EndocervixNo. of containers..01 CYTYC Thin Prep VialPATIENT NOT FASTINGPERFORMED BY: WB [facility] Kevin Perry [place] [id number] BY: =G [facility] (34670) rp Kevin Perry [place] [id number] Information: [id number] HPV, high-risk Negative Comments: This high-risk HPV [...] Cytot echnologist (ASCP) :41 HgA1C , Office (22852) HgA1C , Office 5.4 % (Normal) Range: 4.6 - 7.1 :32 Urinalysis, Office (78769) UA - LEUKOCYTE ESTERASE Moderate (Normal) UA [...] COLON BIOPSY (CHOOSE See Note (Normal) Comments: [facility] B[address] [place], [address] 0 SITE) Comments: Patient: ADILIA GARDNER : 1960 (55/F) Acct Num: [id number] Phys: Terrence Wright Unit Num: [id number] Loc: [facility] Specimen: [id number] Received: 10/15/15 - 1507 Spec Type: COLON [...] o ne cassette. / SJ:jericho 10/19/15 TC:1 CPT:87387 x2 HEADER OPERATION: Colonoscopy with biopsies PRE-OP DIAGNOSIS: Screening/polyp TISSUE SUBMITTED: A - Cecum polyp biopsies, rule out adenoma, B - Sigmoid/rectum polyps biopsies, rule out adenoma MICROSCOPIC DESCRIPTION Slides are reviewed. MICROSCOPIC DIAGNOSIS A. Cecum polyp, biopsy: Fragments of tubular adenoma. B. Sigmo id/rectum polyps, biopsy: Tubular adenoma. Hyperplastic polyp. SJ:jericho 10/20/15 Signed Davie Marcano 10/20/15 <signature on file> :34 LIPID PANEL (10046) Comments: PATIENT WAS FASTINGPERFORMED BY: [facility] Rhnmae2768 [facility] [id number]; will review on 03/30 LDL/HDL Ratio 1.9 [...] 202 mg/dL (Abnormal) Range: 100-199 :34 CALCIFIDIOL (86047) VIT D 25 Comments: PATIENT WAS FASTINGPERFORMED BY: [facility] [facility] [id number] Vitamin D, 25-Hydroxy 34.0 ng/mL (Normal) Range: 30.0-100.0 Comments: Vitamin D deficiency has been defined by the [place] of[place]icine and an Endocrine Society practice guideline as alevel of serum 25-OH vitamin D less than 20 ng/mL (1,2).The Endocrine Society went on to further define vitamin Dinsufficiency as a level between 21 and 29 ng/mL (2).1. IOM ([place] of Medicine). 2010. Dietary reference intakes for calcium and D. [place]: The National Academies Press.2. Bernardo MF, Darwin ANGELO, Ramona BENZ, et al. Evaluation, treatment, and prevention of vitamin D deficiency: an Endocrine Society clinical practice guideline. JCEM. 2010; 96(7):1911-30. :34 VITAMIN B-12 (CYANOCOBALAMIN) Comments: PATIENT WAS FASTINGPERFORMED BY: [facility] Eeaclc4101 [facility] [id number] (07780) Vitamin B12 399 pg/mL (Normal) Range: 211-946 47-Nzf-040163:47 Pathology Report Comments: PERFORMED BY: Element WorksCYT LabUofl Health - [facility] Cyto Wcnrz80792 [facility] [id number] BY: [facility] Dermatopathology Hvqiazj[address] [id number] Information: [id number] See MATER Comments: Material submitted: .SHAVE BIOPSY [...] IS BISECTED AND SUBMITTED INTOTO.XJW/HAOSPathologist provided ICD-9:173.52CPT .788651 62-Kxc-929274:42 TSH (34382) Comments: PATIENT WAS FASTINGPERFORMED BY: [facility] [facility] [id number] TSH 2.050 {uIU/mL} (Normal) Range: 0.450-4.500 17-Crl-534065:42 CBC WITH MANUAL DIFF Comments: PATIENT WAS FASTINGPERFORMED BY: [facility]6[address] [facility] [id number] Information: [id number] (20012) Immature Grans (Abs) 0.0 {x10E3/uL} (Normal) Range: [...] 3.77-5.28 WBC 4.2 {x10E3/uL} (Normal) Range: 3.4-10.8 07-Gzp-485520:42 Metabolic Panel, Comprehensive Comments: PATIENT WAS FASTINGPERFORMED BY: [facility]CoJeff[facility])Cltbec7390 [facility] [id number] (43729) ALT (SGPT) 16 [iU]/L (Normal) Range: 0-32 [...] Glucose, Serum 87 mg/dL (Normal) Range: 65-99 43-Keg-910119:42 Lipid Panel (77248) Comments: PATIENT WAS FASTINGPERFORMED BY: [facility] [id number] LDL/HDL Ratio 2.4 {ratio_units} (Normal) Range: 0.0-3.2 [...] Cholesterol, Total 212 mg/dL (Abnormal) Range: 100-199 60-Vsy-830141:42 CALCIFEDIOL (53457) Comments: PATIENT WAS FASTINGPERFORMED BY: EpiEP [facility] [id number] Vitamin D, 25-Hydroxy 42.0 ng/mL (Normal) Range: 30.0-100.0 Comments: Vitamin D deficiency has been defined by the [place] of[place]icine and an Endocrine Society practice guideline as alevel of serum 25-OH vitamin D less than 20 ng/mL (1,2).The Endocrine Society went on to further define vitamin Dinsufficiency as a level between 21 and 29 ng/mL (2).1. IOM ([place] of [employer]). 2010. Dietary reference intakes for calcium and D. [place]: The National Academies Press.2. Darwin Read, Ramona BENZ, et al. Evaluation, treatment, and prevention of vitamin D deficiency: an Endocrine Society clinical practice guideline. JCEM. 2010; 96(7):1911-30. :42 Vitamin B-12 (cyanocobalamin) Comments: PATIENT WAS FASTINGPERFORMED BY: CB [facility] Kwvjgx4365 Moreno RoadDublin [place] [id number] (06862) Vitamin B12 518 pg/mL (Normal) Range: 211-946 :33 Vitamin D Hydroxy (43704) Comments: PATIENT WAS FASTINGPERFORMED BY: CB [facility] Wzkhls2528 Moreno RoadDublin [place] [id number] Vitamin D, 25-Hydroxy 34.7 ng/mL (Normal) Range: 30.0-100.0 Comments: Vitamin D deficiency has been defined by the [place] of[place]icine and an Endocrine Society practice guideline as alevel of serum 25-OH vitamin D less than 20 ng/mL (1,2).The Endocrine Society went on to further define vitamin Dinsufficiency as a level between 21 and 29 ng/mL (2).1. IOM ([place] of [place]). 2010. Dietary reference intakes for calcium and D. [place]: The National Academies Press.2. Darwin Read, Ramona BENZ, et al. Evaluation, treatment, and prevention of vitamin D deficiency: an Endocrine Society clinical practice guideline. JCEM. 2010; 96(7):1911-. :33 VITAMIN B-12 (CYANOCOBALAMIN) Comments: PATIENT WAS FASTINGPERFORMED BY: CB [facility] Cxvfzh4067 Moreno RoadDublin [place] [id number] (35684) Vitamin B12 376 pg/mL (Normal) Range: 211-946 :33 LIPID PANEL (34605) Comments: PATIENT WAS FASTINGPERFORMED BY: CB [facility] Jxpzpe2051 [facility] [id number] LDL/HDL Ratio 1.8 {ratio_units} (Normal) Range: 0.0-3.2 LDL Cholesterol Calc 131 mg/dL (Abnormal) Range: 0-99 HDL Cholesterol 74 mg/dL (Normal) Comments: According to ATP-III Guidelines, HDL-C >59 mg/dL is considered anegative risk factor for CHD. VLDL Cholesterol Jerald 14 mg/dL (Normal) Range: 5-40 Triglycerides 72 mg/dL (Normal) Range: 0-149 Cholesterol, Total 219 mg/dL (Abnormal) Range: 100-199 35-Omw-96817:33 CBC WITH MANUAL DIFF Comments: PATIENT WAS FASTINGPERFORMED BY: [employer] Wgjpus9163 [facility] [id number] Information: [id number] (81180) Immature Grans (Abs) 0.0 {x10E3/uL} (Normal) Range: [...] PANEL, COMPREHENSIVE Comments: PATIENT WAS FASTINGPERFORMED BY: [facility]Iucjxb2819 [facility] [id number] (83666) ALT (SGPT) 14 [iU]/L (Normal) Range: 0-32 [...] TROPONIN, QUANTITATIVE Comments: PATIENT WAS FASTINGPERFORMED BY: [facility]6[address] [facility] [id number] (aka Troponin I) (19632) Troponin I <0.01 ng/mL (Normal) Range: 0.00-0.04 :33 TSH (80450) Comments: PATIENT WAS FASTINGPERFORMED BY: [facility]University [facility] Abbkwg5475 [facility] [id number] TSH 2.150 {uIU/mL} (Normal) Range: 0.450-4.500 39-Hhu-272102:42 URINE MARIA GUADALUPE CULTURE-SAPNA COL Comments: PATIENT NOT FASTINGPERFORMED BY: [place] [address]77970 [facility] [id number] Information: SRC:[facility] [id number] COUNT (06194) Result 1 MUG (Normal) Comments: Mixed urogenital flora6,000 Colonies/mL Urine Culture,Comprehensive Final report (Normal) :52 Microscopic Examination Comments: PATIENT WAS FASTINGPERFORMED BY: [facility]6[address] [facility] [id number] Bacteria Few (Normal) Mucus Threads Present (Normal) Epithelial Cells (non renal) 0-10 {/hpf} (Normal) Range: 0 - 10 RBC 0-3 {/hpf} (Normal) Range: 0 - 3 WBC 11-30 {/hpf} (Abnormal) Range: 0 - 5 :52 T3, FREE (TRIDOTHYRONINE) (16769) Comments: PATIENT WAS FASTINGPERFORMED BY: [facility]6[address] [facility] [id number] Triiodothyronine,Free,Serum 2.4 pg/mL (Normal) Range: 2.0-4.4 :52 T4, FREE (THYROXINE) (89739) Comments: PATIENT WAS FASTINGPERFORMED BY: [facility]6[address] [facility] [id number] T4,Free(Direct) 1.06 ng/dL (Normal) Range: 0.82-1.77 :52 Creatine Kinase Total (11085) Comments: PATIENT WAS FASTINGPERFORMED BY: [employer] Kzmotp0942 [facility] [id number] Creatine Kinase,Total,Serum 119 U/L (Normal) Range: 24-173 :52 URINALYSIS, W/ MICRO (67774) Comments: PATIENT WAS FASTINGPERFORMED BY: [employer] Pxstux6695 [facility] [id number] Microscopic Examination See below: (Normal) Nitrite, Urine Negative (Normal) Urobilinogen,Semi-Qn 0.2 mg/dL (Normal) Range: 0.0-1.9 Bilirubin Negative (Normal) Occult Blood Negative (Normal) Ketones Negative (Normal) Glucose Negative (Normal) Protein Negative (Normal) WBC Esterase 2+ (Abnormal) Appearance Clear (Normal) Urine-Color Yellow (Normal) pH 6.0 (Normal) Range: 5.0-7.5 Specific [place] 1.014 (Normal) Range: 1.005-1.030 :52 LIPID PANEL (17741) Comments: PATIENT WAS FASTINGPERFORMED BY: [employer] Stkltd1430 [facility] [id number] LDL/HDL Ratio 3.2 {ratio_units} (Normal) Range: 0.0-3.2 LDL Cholesterol Calc 125 mg/dL (Abnormal) Range: 0-99 HDL Cholesterol 39 mg/dL (Abnormal) Comments: According to ATP-III Guidelines, HDL-C >59 mg/dL is considered anegative risk factor for CHD. VLDL Cholesterol Jerald 17 mg/dL (Normal) Range: 5-40 Cholesterol, Total 181 mg/dL (Normal) Range: 100-199 Triglycerides 84 mg/dL (Normal) Range: 0-149 :52 Vitamin D Hydroxy (18516) Comments: PATIENT WAS FASTINGPERFORMED BY: [facility]ix[facility]Xnpnqn2395 [facility] [id number] Vitamin D, 25-Hydroxy 44.9 ng/mL (Normal) Range: 30.0-100.0 Comments: Vitamin D deficiency has been defined by the [place] of[place]icine and an Endocrine Society practice guideline as alevel of serum 25-OH vitamin D less than 20 ng/mL (1,2).The Endocrine Society went on to further define vitamin Dinsufficiency as a level between 21 and 29 ng/mL (2).1. IOM ([place] of [employer]). 2010. Dietary reference intakes for calcium and D. [place]: The National Academies Press.2. Bernardo MF, Darwin ANGELO, Ramona BENZ, et al. Evaluation, treatment, and prevention of vitamin D deficiency: an Endocrine Society clinical practice guideline. JCEM. 2010; 96(7):1911-30. :52 VITAMIN B-12 (CYANOCOBALAMIN) Comments: PATIENT WAS FASTINGPERFORMED BY: [facility] [id number] (32586) Vitamin B12 290 pg/mL (Normal) Range: 211-946 :52 EBV Panel (61231) Comments: PATIENT WAS FASTINGPERFORMED BY: [facility] [facility] [id number] Interpretation: SPRCS (Normal) Comments: EBV Interpretation Chart [...] <0.9 Equivocal 0.9 - 1.0 Positive >1.0 72-Znc-71913:52 CBC WITH MANUAL DIFF Comments: PATIENT WAS FASTINGPERFORMED BY: [facility] [facility] [id number] Information: [id number] (30417) Immature Grans (Abs) 0.0 {x10E3/uL} (Normal) Range: [...] COMPREHENSIVE Comments: PATIENT WAS FASTINGPERFORMED BY: [facility] Ghdwhe1150 [facility] [id number] (79362) ALT (SGPT) 16 [iU]/L (Normal) Range: 0-32 [...] 93 mg/dL (Normal) Range: 65-99 :52 TSH (20257) Comments: PATIENT WAS FASTINGPERFORMED BY: [facility] Ytgwgb2662 More[address] Roadblin [place] [id number] TSH 2.110 {uIU/mL} (Normal) Range: 0.450-4.500 :52 SED RATE ERYTHROCYTE (80584) Comments: PATIENT WAS FASTINGPERFORMED BY: [facility] Slbpcb2905 [facility] [id number] Sedimentation Rate-Westergren 27 mm/h (Normal) Range: 0-40 :52 C-REACTIVE PROTEIN (25802) Comments: PATIENT WAS FASTINGPERFORMED BY: [facility] Nffqak[address] [facility]in [place] [id number] C-Reactive Protein, Quant 59.8 mg/L (Abnormal) Range: 0.0-4.9 2-Gfx-201840:41 DEXA BONE DENSITY STUDY (HP) Radiology Report [...] Rosales M.D.June 18, 2012 at 1:43:18 PM [id number] Signed GP/GP If you are the referring physician and would like to consult with theradiologist who provided this interpretation, please contact Viry Veliz at [phone]. If this radiologist is unavailable, youwill be directed to another radiologist to assist. If you are a patient with a question regarding this report, pleasecont actyour referring physician directly. Professional Interpretation Provided By: [employer], Phone , These documents contain legally protected [...] 06/18/12 1346 Sign by: Eliel Rosales MD 8-Wha-691170:40 BILAT SCRN DIGITAL & CAD Radiology Report [...] Rosales M.D.June 18, 2012 at 12:14:10 PM [id number] Signed GP/GP If you are the referrin g physician and would like to consult with theradiologist who provided this interpretation, please contact Viry Veliz at [phone]. If this radiologist is unavailable, youwill be [...] 06/18/12 1227 Sign by: Eliel Rosales MD 7-Xyu-278414:40 PELVIC (NON ) Radiology Report See Note [...] Rosales M.D.June 18, 2012 at 1:52:03 PM [id number] Signed GP/GP If you are the referring physician and would like to consult with theradiologist who provid ed this interpretation, please contact Viry Veliz at [phone]. If this radiologist is unavailable, youwill be directed to another radiologist to assist. If you are a patient with a ques tion regarding this report, pleasecontactyour referring physician directly. Professional Interpretation Provided By: [employer], Phone , These documents contain legally pr [...] Rosales M.D.June 18, 2012 at 1:52:03 PM [id number] Signed GP/GP If you are the referring physician and would like to consult with theradiologist who provid ed this interpretation, please contact Viry Veliz at [phone]. If this radiologist is unavailable, youwill be directed to another radiologist to assist. If you are a patient with a ques tion regarding this report, pleasecontactyour referring physician directly. Professional Interpretation Provided By: [employer], Phone , These documents contain legally pr [...] 06/18/12 135 Sign by: Eliel Rosales MD 35-Byt-736946:34 L/S SPINE,MIN 4 VIEWS Radiology Report See [...] 08/02/10 1606 Sign by: Andre Antonio MD 2-Gfj-035128:46 Microscopic Examination Comments: PERFORMED BY: [facility] [facility] [id number] Bacteria None seen (Normal) Crystal Type Amorphous Sediment (Normal) Crystals Present (Abnormal) Mucus Threads Present (Normal) Epithelial Cells (non renal) 0-10 {/hpf} (Normal) Range: 0 - 10 RBC 0-3 {/hpf} (Normal) Range: 0 - 3 WBC 0-5 {/hpf} (Normal) Range: 0 - 5 2-Mcp-340946:46 Urinalysis, Routine Comments: PERFORMED BY: [employer] [facility] [id number] Information: SRC:UR Bilirubin Negative (Normal) Microscopic Examination See below: (Normal) Nitrite, Urine Negative (Normal) Urobilinogen,Semi-Qn 0.2 mg/dL (Normal) Range: 0.0-1.9 Glucose Negative (Normal) Ketones Negative (Normal) Occult Blood Negative (Normal) Appearance Clear (Normal) pH 6.0 (Normal) Range: 5.0-7.5 Protein Negative (Normal) Urine-Color Yellow (Normal) WBC Esterase Trace (Abnormal) Specific [place] 1.023 (Normal) Range: 1.005-1.030 6-Ihn-066698:46 Urine Culture,Comprehensive Comments: PERFORMED BY: [employer] [facility] [id number] Result 1 MUG (Normal) Comments: Mixed urogenital flora10,000-25,000 colony forming units per mL Urine Final report (Normal) Culture,Comprehensive 8-Gti-542209:18 Urinalysis, Office (29056) UA - LEUKOCYTE ESTERASE Small (Normal) UA - NITRITE Negative (Normal) URINE UROBILINGN SAPNA TIMED Normal mg/dL (Normal) Comments: 0.2 UA - PROTEIN Trace mg/dL (Normal) UA - PH 6.0 (Normal) UA - BLOOD Negative (Normal) UA - SPECIFIC GRAVITY 1.025 (Normal) UA - KETONES Negative mg/dL (Normal) UA - BILIRUBIN Negative (Normal) UA - GLUCOSE Negative (Normal) 39-Och-694039:02 Microscopic Examination Comments: PATIENT WAS FASTINGPERFORMED BY: [employer] [facility] [id number] Bacteria None seen (Normal) Crystal Type Amorphous Sediment (Normal) Crystals Present (Abnormal) Mucus Threads Present (Normal) Epithelial Cells (non renal) >10 {/hpf} (Abnormal) Range: 0 - 10 RBC 0-3 {/hpf} (Normal) Range: 0 - 3 WBC 6-10 {/hpf} (Abnormal) Range: 0 - 5 46-Vez-81256:03 UNILAT DIA DIGITAL & CAD Radiology Report See Note (Normal) Comments: Exam Number: [id number] UNILATERAL RIGHT DIAGNOSTIC MAMMOGRAM A 90-degree lateral [...] ms werealso examined with computer-aided detection software ([employer] Reported By: ELIEL ROSALES 30-Tlh-35659:33 [facility] DIGITAL & CAD Radiology Report See Note (Normal) Comments: Exam Number: [id number] MAMMOGRAM, BILATERAL SCREENING DIGITAL AND CAD HISTORYRoutine [...] mammograms werealso examined with computer-aided detection software ([employer].). Reported By: JONAH ARAYA M.D. 67-Iwi-047761:02 Vitamin D Hydroxy (75540) Comments: PATIENT WAS FASTINGPERFORMED BY: [facility]6370 [facility] [id number] Vitamin D, 25-Hydroxy 32.4 ng/mL (Normal) Range: 32.0-100.0 Comments: Recent studies consider the lower limit of 32.0 ng/mL to be athreshold for optimal health.Chilo SR. J Nutr. 2004;135(2):317-22. 86-Hav-686735:02 LIPID PANEL (47588) Comments: PATIENT WAS FASTINGPERFORMED BY: [employer] Ytuwey4067 [facility] [facility] [id number] LDL Cholesterol Calc 136 mg/dL (Abnormal) Range: 0-99 LDL/HDL Ratio 2.6 {ratio_units} (Normal) Range: 0.0-3.2 VLDL Cholesterol Jerald 19 mg/dL (Normal) Range: 5-40 HDL Cholesterol 53 mg/dL (Normal) Comments: According to ATP-III Guidelines, HDL-C >59 mg/dL is considered anegative risk factor for CHD. Cholesterol, Total 208 mg/dL (Abnormal) Range: 100-199 Triglycerides 95 mg/dL (Normal) Range: 0-149 38-Dua-324612:02 URINALYSIS, W/ MICRO (91097) Comments: PATIENT WAS FASTINGPERFORMED BY: [facility] [facility] [id number] Bilirubin Negative (Normal) Ketones Negative (Normal) Microscopic Examination See below: (Normal) Nitrite, Urine Negative (Normal) Occult Blood Trace (Abnormal) Urobilinogen,Semi-Qn 0.2 mg/dL (Normal) Range: 0.0-1.9 Appearance Cloudy (Abnormal) Glucose Negative (Normal) Protein Trace (Normal) Urine-Color Yellow (Normal) WBC Esterase 1+ (Abnormal) pH 6.0 (Normal) Range: 5.0-7.5 Specific [place] 1.029 (Normal) Range: 1.005-1.030 :02 TSH (42061) Comments: PATIENT WAS FASTINGPERFORMED BY: [facility] [facility] [id number] TSH 2.110 {uIU/mL} (Normal) Range: 0.450-4.500 :02 CBC WITH MANUAL DIFF Comments: PATIENT WAS FASTINGPERFORMED BY: [facility] [facility] [id number] Information: [id number],M32014 (07682) Baso (Absolute) 0.0 {x10E3/uL} (Normal) Range: 0.0-0.2 [...] 3.80-5.10 WBC 4.9 {x10E3/uL} (Normal) Range: 4.0-10.5 26-Ncd-206019:02 METABOLIC PANEL, COMPREHENSIVE Comments: PATIENT WAS FASTINGPERFORMED BY: [facility] Ffnxhq14[address] [facility] [id number] (23337) Alkaline Phosphatase, S 57 [iU]/L (Normal) Range: [...] without abnormal finding : *Well Female Maintenance ([facility]) Indication: Encounter for gynecological examination [...] Indication: Hyperlipidemia Planned Observations Thin prep Pap (37118) (no STD testing)Indication: Encounter for gynecological examination without abnormal finding On: 66-Ufe-70797:11 Request VITAMIN B-12 (CYANOCOBALAMIN) (29369)Indication: B12 deficiency On: :23 Request Vitamin D Hydroxy (60950)Indication: Vitamin D deficiency, unspecified On: :23 Request C-REACTIVE PROTEIN (82224)Indication: Mononucleosis On: :28 Request VITAMIN B-12 (CYANOCOBALAMIN) (55589)Indication: B12 deficiency On: :27 Request Urinalysis, Office (85138)Indication: Lower urinary tract infection On: :25 Request URINE MARIA GUADALUPE CULTURE (SAPNA COL COUNT) (24333)Indication: Lower urinary tract infection On: :25 Request Vitamin D Hydroxy (61436)Indication: Vitamin D deficiency, unspecified On: 4-Lqd-285355:22 Request Planned Procedures B 12 Injection, 1000 mcg (J3420)By: On: 12-Dec-2017 Intent Sveta Sofia DO, DO, Comments: 1 ml given lt dltd lot [id number] exp 06/01 Sveta DEXA SCAN AXIAL SKELETON (04428)By: On: 12-Dec-2017 Sveta Samson DO, DO, Sveta SCREENING DIGITAL TOMOSYNTHESIS OF On: 12-Dec-2017 Intent BREAST (94663)By: Maribell Call B 12 Injection, 1000 mcg (J3420)By: On: 16-Apr-2017 Sveta Samson DO, DO, Comments: vitamin b12 1000mcg injectionlot: [id number]: 06/2018L DELT 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 Sveta ELECTROCARDIOGRAM, COMPLETE (ECG) On: 19-Mar-2017 Intent (93675)By: Sveta Sofia DO Comments: nsr no acute chg Sveta POLANCO MRI BRAIN W/ CONTRAST (99959)By: On: 19-Mar-2017 Sveta Samson DO, DO, Kathleen Spirometry (83038)By: Kimberlyn POLANCO On: 31-Aug-2016 Intent Sveta Colon DO Comments: normal great curve DEXA SCAN AXIAL SKELETON (92151)By: On: 30-Mar-2016 Intent Sveta Sofia DO, DO, Kathleen MAMMOGRAM, SCREENING, BOTH BREAST On: 30-Mar-2016 Intent (27373)By: Sveta Sofia DO, DO, Kathleen Aerosol Treatment (02368)By: Ciara On: 01-Jan-2015 Intent Gala PEÑA DIAGNOSTIC BILATERAL MAMMOGRAM On: 02-Apr-2014 Intent (53382)By: Pau Mcghee DO Comments: right breast pain Spot Compression - RightBy: Taz POLANCO, On: 24-Mar-2014 Intent Pau Garcia MAMMOGRAM, SCREENING, BOTH BREAST On: 24-Mar-2014 Intent (82746)By: Pau Mcghee DO Spirometry (76900)By: Pau Mcghee DO On: 01-Apr-2013 Intent A Comments: good effort and curve normal Pulse Oximetry (19856)By: Taz POLANCO, On: 01-Apr-2013 Intent Pau Garcia Comments: 98 Nuclear Stress Test/Stress On: 01-Apr-2013 Intent SPECT/AdenosineBy: Pau Mcghee DO Comments: knee issues Holter Monitor 24 hrsBy: Taz POLANCO, On: 01-Apr-2013 Intent Pau Garcia Echo CompleteBy: Pau Mcghee DO On: 01-Apr-2013 Intent EKG (22745)By: Pau Mcghee DO On: 01-Apr-2013 Intent Comments: ekg showed normal sinus rhythym, normal axis, no acute st/t wave changes B 12 Injection, 1000 mcg (J3420)By: On: 22-Oct-2012 Intent Pau Mcghee DO Comments: lot: [id number]: 09/25site/route: L deltoid/IMamt: 1mLVIS signed when applicableChelsea, LEADER ASSEMBLER MAMMOGRAM, SCREENING, BOTH BREASTS On: 05-Jun-2012 Intent (46943)By: Pau Mcghee DO DXA, BONE DENSITY, AXIAL SKELETON On: 05-Jun-2012 Intent (61310)By: Pau Mcghee DO Ultrasound - PelvisBy: Pau Mcghee DO On: 05-Jun-2012 Intent A Radiology - Lumbar SpineBy: Bonezzi On: 02-Aug-2010 Intent Gala PEÑA MAMMOGRAM, SCREENING, BOTH BREASTS On: 17-Mar-2009 Intent (40119)By: Pau Mcghee DO Planned Medications Vitamin B-12 [...] is not using a End: 30-Mar-2016 12:09 wi method of contraception at this time. Patient [...] v icodin rarely when bad. 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 no radiculopathy. no b/b incontinence. hard [...]
--- OUTSIDE RECORDS SUMMARY | 2018-05-01 08:30 | XMS RPT_ITS ---
:1960 Author Organization OHIP Care Team Providers Name Role Phone Sveta Sofia Attending Unavailable Kimberlyn, Sveta Primary Care Unavailable KimberlynSveta Attending Unavailable KimberlynTrishSveta Referring Unavailable Kimberlyn, Sveta Primary Care Unavailable Kimberlyn, Sveta Attending Unavailable Kimberlyn, Sveta Primary Care Unavailable PROBLEMS PROBLEMS DATE TYPE CONDITION / CODE ATTENDING STATUS SOURCE 03/29/2017 Unknown H93.19 - Kimberlyn, Active Davis Tinnitus, Sveta [facility] unspecified ear / Hospital H93.19(ICD-10) Repository PROCEDURES PROCEDURES No Procedure Records FoundRESULTS RESULTS SCREENING MAMM (CAD), Observed: 01/26/2018 Status: F Source: [place] B[place] 7:56 AM [facility] REPOSITORY [facility] Imaging Services [address] [place] [address] SCREENING MAMM (CAD), BILAT MR#: [id number] Acct: [id number] Name: ADILIA GARDNER Rep #: [id number] : 1960 F 57 From: Eliel Grey MD PCP: Sveta Sofia DO Status: REG CLI Study: SCREENING MAMM (CAD), BILAT Date of Exam: 01/26/18 Exam# [id number] Ordering Dr: Sveta Sofia DO MAMMOGRAPHY - BILATERAL SCREENING REASON FOR EXAM: Female, 57 years old. Routine annual screening examination. PERTINENT HISTORY: Aunt with breast cancer. TECHNIQUE: Digital bilateral breast maria guadalupe (3D mammographic acquisition) in the CC and MLO projections. 2-D mediolateral oblique (MLO) and craniocaudad (CC) views of both breasts were obtained. CAD: Full Field Digital Mammography with Computer Added Detection was performed. COMPARISON: Comparison is made with prior study dated April 02, 2014 and June 18, 2012. FINDINGS: Breast Composition: There are scattered areas of fibroglandular density. There are no dominant masses or suspicious calcifications. Stable small bilateral axillary lymph nodes. No other significant abnormalities are identified. There has been no significant change since the prior study. BI/SCREENING MAMM (CAD), BILAT IMPRESSION: Stable bilateral screening mammogram. Yearly follow-up mammogram recommended. (A) ASSESSMENT CATEGORY: BIRADS Category 2: Benign. A letter regarding these results will be sent to the patient by the facility within 30 days. Approximately 10% of breast cancers are not detected by mammography. A normal mammogram should not delay biopsy of a clinically suspicious abnormality. [id number] Electronically Signed: Eliel Grey MD at 8:31 EST Tel [phone], Service support , CC: Sveta Sofia DO Bushler: Signed DEXA BONE DENSITY Observed: 12/18/2017 Status: F Source: [place] STUDY 2:56 PM [facility] REPOSITORY [facility] Imaging Services [address] [place] [address] Dexa Bone Density Study MR#: [id number] Acct: [id number] Name: ADILIA GARDNER Rep #: [id number] : 1960 F 57 From: Eliel Grey MD PCP: Sveta Sofia DO Status: REG CLI Study: Dexa Bone Density Study Date of Exam: 12/18/17 Exam# [id number] Ordering Dr: Sveta Sofia DO STUDY: DUAL ENERGY X-RAY ABSORPTIOMETRY / DXA REASON FOR EXAM: Female, 57 years old. The patient is postmenopausal. Loss of height. TECHNIQUE: Bone Mineral Density (BMD) measurements of lumbar spine and bilateral hips were obtained. COMPARISON: Comparison is made with prior study dated June 18, 2012. FINDINGS: Lumbar Spine (L1-L4): g/cm2 (1.094) / T-score (-0.7) / Z-score (0.3) Findings are suggestive of normal bone density with a low fracture risk. Left Femur Total: g/cm2 (1.084) / T-score (0.6) / Z-score (1.4) Left Femoral Neck: g/cm2 (0.982) / T-score (-0.4) / Z- score (0.8) Right Femur Total: g/cm2 (1.034) / T-score (0.2) / Z- score (1.0) Right Femoral Neck: g/cm2 (0.901) / T-score (-1.0) / Z-score (0.2) The T-Scores on the most recent prior examination were: Lumbar Spine (L1-L4): There has been worsening of bone density since the previous examination. Left Femur Total: which represents an improvement of 0.4%. Right Femur Total: which represents a worsening of 3.3%. BD/Dexa Bone Density Study IMPRESSION: The patient is considered normal as outlined below according to World Hilario Organization (WHO) criteria with a low fracture risk. There has been worsening of bone density since the previous examination. Reference Information: The T-score is the number of standard deviations above or below the standard which is normal for young adults at their peak bone mineral density. The World Health Organization (WHO) interprets the T-scores as follows: Above -1 Normal bone density Between -1 and -2.5 Osteopenia Equal to / or below -2.5 Osteoporosis As a practical clinical guideline, osteopenia may be graded as follows: Mild -1 through -1.5 Moderate -1.6 through -2.0 Severe -2.1 through -2.4 The Z-score is the number of standard deviations above or below age-matched controls. A Z-score of less than -1.5 would be considered abnormal. References: 1. NIH Osteoporosis and Related Bone Diseases http://www.osteo.org 2. International Society for Clinical Densitometry http://www.iscd.org 3. National Osteoporosis Foundation http://www.nof.org Electronically Signed: Eliel Grey MD at 14:59 EST Tel [phone], Service support , CC: Sveta Sofia DO Bushler: Signed BRAIN W/WO CONTRAST Observed: 03/29/2017 Status: F Source: [place] 9:37 AM [facility] REPOSITORY [facility] Imaging Services [address] [place] [address] Brain W/WO Contrast MR#: [id number] Acct: [id number] Name: ADILIA GARDNER ANN Rep #: [id number] : 1960 F 56 From: Darlene Perry MD PCP: Sveta Sofia DO Status: REG CLI Study: Brain W/WO Contrast Date of Exam: 03/29/17 Exam# [id number] Ordering Dr: Sveta Sofia DO STUDY: MRI BRAIN AND IACs WITH AND WITHOUT CONTRAST REASON FOR EXAM: Female, 56 years old. Bilateral tinnitus for 5 years. This has been getting worse recently. TECHNIQUE: Standardized multiplanar fat and water weighted pulse sequences were obtained. 10 ml of Gadavist contrast material was administered intravenously for the contrast portion of the examination. COMPARISON: Prior comparison studies are not available for review at this time. FINDINGS: Normal bilateral temporal bones. Normal bilateral internal auditory canals. There is no demonstrated intracanalicular or cisternal vestibular schwannoma (acoustic neuroma). There is no enhancement of the bilateral VIIth or VIIIth cranial nerves. Normal bilateral cochlea, vestibules and semicircular canals. There is mild cerebral atrophy with widening of the extra- axial spaces and ventricular dilatation. There are a limited number of small white matter hyperintensities, distributed throughout the deep white matter tracts of the cerebral hemispheres, consistent with mild chronic white matter ischemic changes. Normal bilateral basal ganglia. Normal thalami. There is no extra-axial fluid accumulation. Normal flow voids within the major intracranial circulation suggesting patency by spin echo criteria. Normal venous enhancement. There is no enhancing intra-axial or extra-axial abnormality. Normal sella turcica, pituitary gland, infundibular stalk, optic chiasm and hypothalamus. Normal tectal plate and pineal gland. Normal midbrain, wilma and medulla. Normal cerebellum. Normal basal cisterns. No demonstrated orbital abnormality, within the constraints of a routine brain study. There is mucoperiosteal inflammatory disease of the paranasal sinuses consistent with mild chronic sinusitis. Normal calvarium and skull base. Normal visualized soft tissue structures. Normal visualized upper cervical spine. MRI/Brain W/WO Contrast IMPRESSION: 1. Involutional changes of the brain, as described above. 2. No MR evidence for acute infarct. 3. No MR evidence for cerebellopontine angle mass Electronically Signed: Darlene Perry MD at 14:32 EST , Service support , CC: Sveta Sofia DO Bushler: Signed ALLERGIES ALLERGIES No Allergies Records FoundENCOUNTERS ENCOUNTERS ADMIT/DISCHARGE ACCOUNT ADMITTING ENCOUNTER LOCATION SOURCE NUMBER CLASS 01/26/2018 [id number] Ambulatory Davis Davis 1 [facility] ing:OPBI Repository 12/18/2017 [id number] Ambulatory Davis Davis 4 [facility] ing:OPBD Repository 03/29/2017 [id number] Ambulatory Mony Davis 6 [facility] ing:MRI Repository PAYERS PAYERS ENCOUNTER GUARANTOR PAYER SUBSCRIBER SOURCE 01/26/2018 ANNETTA J Primary LITTLEJOHN J Mony [id number] Insurance:ANTHEMPolic STARLINDOB: [facility] y Number: [id number] [id number] Repository [address]Cou: [phone] abbie Date:8528-58-47SY [phone] () [address], [place] [address]KV: 01/26/2018 Secondary NOT GIVENUNK Davis Insurance:SELF PAY [facility] Number: Effective Repository Date:2017-12-14 12/18/2017 LITTLEJOHN J Primary ANNETTA J Mony [id number] Insurance:ANTHEMPolic STARLINDOB: [facility] y Number: [id number], [place] [id number] Repository [address]Nlz: [phone] abbie Date:5865-88-87MZ [phone] () [address], [place] [address]AG: 12/18/2017 Secondary NOT GIVENUNK Mony Insurance:SELF PAY [facility] Number: Effective Repository Date:2017-12-14 03/29/2017 Annetta J Primary Annetta J Mony [id number] Insurance:ANTHEMPolic StarlinDOB: [facility] y [place]: [id number] [id number] Repository [address]Gmr: [phone] abbie Date:0428-67-17IQ [phone] () [address], [place] [address]YT: 03/29/2017 Secondary NOT GIVENUNK Davis Insurance:SELF PAY [facility]: Effective Repository Date:2017-03-20
== END ==
PROVIDERS: Family Provider Internal Medicine; PCP Internal Medicine; Visit Provider Internal Medicine
DX: Z12.31 Encounter for screening mammogram for malignant neoplasm of breast (principal)
CPT/HCPCS: 77063; 77067

== ENCOUNTER → 2018-09-12 | Outpatient (CLI) | payer BC, SELFPAY ==
[2018-09-17 16:47] LABS: HPV Reflexed? NOT INDICATED
== END | disposition home or self-care (01) ==
PROVIDERS: Family Provider Internal Medicine; PCP Internal Medicine; Referring Provider Obstetrics & Gynecology; Visit Provider Obstetrics & Gynecology
DX: Z12.4 Encounter for screening for malignant neoplasm of cervix (principal)
CPT/HCPCS: 87624; 88175; G0145

== ENCOUNTER → 2018-09-12 | Outpatient (CLI) | payer BC, SELFPAY ==
--- NOTE | 2018-09-12 14:30 | CER_PTH ---
PATIENT: ADILIA GARDNER LOC: [facility] U#:[id number] AGE/SX: 58/F ROOM: RE09/12/[address]: Dr. Renzo Corral MD : 1960 BED: DIS: 09/12/2018 SPEC #: [id number] RECD: 09/12/18 17:45 STATUS: ROSITA SHADI #: [id number] HERIBERTO: 09/12/18 14:[address]: Renzo Corral DEPT: SURGICAL PATHOLOGY RECD BY: Maximo Conley ENTERED: 09/13/18 10:49 SP TYPE: CERV OTHR DR: Dr. Sveta Sofia DO Tissues: Uterine cervix, NOS Procedures: Surgery Specimen Level IV HEADER OPERATION: Polypectomy PRE-OP DIAGNOSIS: N84.1 TISSUE SUBMITTED: Cervical polyp MICROSCOPIC DIAGNOSIS Cervical polyp, polypectomy: Fragments of benign endocervical polyp. SJ:jericho 09/16/18 MICROSCOPIC DESCRIPTION Slides are reviewed. GROSS DESCRIPTION Received in fixative is one container labeled with the patient's name and designated cervical polyp. The specimen consists of multiple irregular fragments of light fernandez soft tissue that in aggregate measure 1.5 x 1 x 0.2 cm. The specimen is totally submitted in one cassette. / AM:jericho 09/13/18 TC:5 CPT: 76570
== END | disposition home or self-care (01) ==
LOC: LABSPEC 09-13 08:01
PROVIDERS: Family Provider Internal Medicine; PCP Internal Medicine; Referring Provider Obstetrics & Gynecology; Visit Provider Obstetrics & Gynecology
DX: N84.1 Polyp of cervix uteri (principal)
CPT/HCPCS: 88305

== ENCOUNTER → 2019-11-25 | Outpatient (CLI) | payer SELFPAY | END | disposition home or self-care (01) | LOC: LABSPEC 15:36 | PROVIDERS: PCP Internal Medicine; Referring Provider Dermatology; Visit Provider Dermatology | CPT/HCPCS: 87070; 87077; 87186; 87205 ==

== ENCOUNTER 2020-05-22 20:53 | Inpatient (IN) | payer BC, SELFPAY ==
[2020-05-22 20:53] VITALS: BP 167/82; PULSE 65; RESP 18; TEMP 36.4; O2SAT 99; BMI 30.4
--- NOTE | 2020-05-22 21:05 | CT_ITS ---
We are attempting to reach an attending provider to discuss findings. An addendum with communication details will be sent when the communication is complete. STUDY: CT ABDOMEN AND PELVIS WITHOUT CONTRAST REASON FOR EXAM: Female, 59 years old. Hematuria. left flank pain RADIATION DOSAGE (If Supplied By Facility): CTDIvol = ( 17.26 ) mGy, DLP = ( 944.34 ) mGycm TECHNIQUE: Transaxial images were obtained from the dome of the diaphragm to the symphysis pubis without oral contrast, and without intravenous contrast. Sagittal and coronal images were reconstructed. Individualized dose optimization techniques were used for this CT. COMPARISON: None. FINDINGS: The visualized lung bases are unremarkable. The visualized portions of the heart are within normal limits. Normal liver. Normal gallbladder and extrahepatic biliary system. Normal spleen. Normal pancreas. Normal bilateral adrenal glands. Normal right kidney. Markedly abnormal left kidney showing a heterogeneous lobular mass of the upper to mid left kidney. It measures approximately 9.1 x 6.1 x 10.7 cm and is clearly a renal cell carcinoma. Normal visualized stomach. Normal small intestine. Normal colon. The appendix is visualized and appears normal. Normal abdominal aorta. Normal inferior vena cava. Normal retroperitoneum. There is normal bladder contour. Lung the posterior wall of the bladder there is a hyperdense mass density approximately 3.3 cm size to be a soft tissue mass or focal hematoma. Cystoscopy is recommended. Normal abdominal wall. Normal osseous structures. CT/Abdomen/Pelvis without Cont IMPRESSION: Probable malignant mass of the left kidney measuring approximately 10.7 cm in greatest dimension. Focal intraluminal hematoma or mass along the posterior wall of the bladder. Electronically Signed: Mauri Peguero MD at 21:55 EDT , Service support ,
--- NOTE | 2020-05-22 21:06 | ED.DCSUM_ITS ---
- ER Visit Summary Date of Service: 05/22/20 Chief Complaint: [Flank pain] History of Present Illness: The patient is a 59 F [does the emergency department with left-sided flank pain that started a few hours ago. Patient states that she had been having some urinary frequency and urinating small amount since last evening. Patient's had some hematuria and passed 2 clots today. She is not had a history of kidney stones. Patient denies fevers. She has had some nausea but no vomiting. She has no medical history. Patient denies any trauma to her back or abdomen.] Physical Examination: [HEENT-PERRLA, EOMI. Cranial nerves II through XII grossly intact. TMs clear. Mucous membranes moist. No adenopathy. Cardiovascular-regular rate and rhythm without murmur or ectopy Lungs-clear to auscultation, chest wall stable without crepitus or subcu emphysema Abdomen-normoactive bowel sounds, soft, nontender, no rebound or rigidity, no peritoneal signs. Extremities-intact ?4, normal range of motion, normal pulses, atraumatic] Test Results: [CBC with differential showed a white of 7.4, hemoglobin 11.6, hematocrit 35.4, platelets 214. Chemistries unremarkable. Glucose 115. Urinalysis ordered and pending. CT flank obtained interpreted by radiology as a large left renal mass measuring 9 x 10 cm. Patient also was noted to have a mass in the bladder which could represent hematoma.] Emergency Department Course and Treatment: [The line established on arrival. Patient was given Dilaudid and Toradol for pain as well as Zofran. This was discussed with urology who will admit patient for further evaluation and pain management as well as management of her hematuria] Treatment Plan: Admit [] Disposition: [Admit] Impression: [Hematuria Left renal mass Abdominal pain ] This note was generated with [employer] dictation software. It may contain incorrect words, spelling, and punctuation that were not noted in review of the chart prior to signing ED Disposition - Plan for ED Patient: Referrals: Sveta Sofia DO [Primary Care Provider] -
[2020-05-22] MEDS: Ondansetron 4 MG/2 ML Vial IV (21:11)
[2020-05-22] MEDS: 0.9% Normal Saline 1,000 ML 150 ML IV (21:11)
[2020-05-22] MEDS: Ketorolac 15 MG/ML Vial IV (21:11)
[2020-05-22] MEDS: HYDROmorphone 1 MG/ML Syringe IV (21:19)
[2020-05-22 21:35] LABS: Absolute Lymphocyte Count 1.65 X10^3/uL (0.83-4.51); Absolute Neutrophil Count 5.2 X10^3/uL (2.0-7.7); Basophil# 0.06 X10^3/uL; Basophil% 0.8 % (0-1); Hematocrit 35.4 % (37-47); Hemoglobin 11.6 g/dL (12.0-15.0); Lymphocyte # 1.65 X10^3/ul (4.0); Lymphocyte % 22.4 % (19-41); Mean Corp Hgb Conc 32.8 g/dL (32-36); Mean Corpuscular Hgb 28.4 pg (27.0-32.0); Mean Corpuscular Volume 86.8 fL (81-99); Mean Platelet Vol. 10.1 fl (6.2-12.0); Monocyte# 0.48 X10^3/uL; Monocyte% 6.5 % (0-10); NRBC Flagged by Analyzer 0 % (0-5); Neutrophil # 5.17 X10^3/uL (2.7-7.7); Platelet Count 214 K/mm3 (150-450); RBC Distribution Width CV 12.5 % (11.6-14.6); RBC Distribution Width SD 39.6 fl (35.1-43.9); Red Blood Count 4.08 M/mm3 (4.2-5.4); White Blood Count 7.4 K/mm3 (4.4-11.0)
[2020-05-22 21:47] LABS: Anion Gap 7 (5-15); BUN 18 mg/dL (7-18); Chloride 107 mmol/L (98-107); EST Glomerular Filtration Rate 68 mL/min (>60); Est Glom Filt Rate - Afr Amer 82 mL/min (>60); Estimated Creatinine Clearance 67.06 ml/min; Glucose 115 mg/dL (74-106); Sodium Level 136 mmol/L (136-145)
--- NOTE | 2020-05-22 23:10 | ED.RN ---
Approx 1000cc dark red urine drained from catheter.
--- NOTE | 2020-05-22 23:12 | ED.RN ---
Due to visitor restrictions and new diagnosis, patient requests to spend time with family prior to admission. [facility] floor notified.
[2020-05-22 23:19] VITALS: BP 147/77; PULSE 76; RESP 16; TEMP 36.1
[2020-05-22 23:28] LABS: Bacteria 0 SEEN /hpf (None Seen); Mucous, Urine 0 SEEN /hpf (<or=2+); Squamous Epithelial Cells - UA 0 SEEN /hpf (5-10); White Blood Cells 0 SEEN /hpf (0-5)
[2020-05-22 23:42] LABS: Color, Urine Brown (Yellow); Glucose, Dipstick Normal (Normal); Ketone-Dipstick 15 mg/dl (Negative); Leukocyte Esterase-Dipstick Negative /ul (Negative); Nitrite-Dipstick Negative (Negative); Occult Blood-Urine 250 /ul (Negative); Protein-Dipstick 500 mg/dl (Negative); Urine Bilirubin Dipstick Negative (Negative); Urine Clarity Turbid (Clear); Urine Urobilinogen Normal (Normal)
[2020-05-22 23:54] LABS: Red Blood Cells-Urine > 100 SEEN /hpf (0-5)
[2020-05-22 23:58] VITALS: BP 143/71; PULSE 64; RESP 18; TEMP 36.6; O2SAT 99; BMI 35.5
[2020-05-23 00:09] VITALS: BMI 35.6
[2020-05-23 04:52] VITALS: BP 132/66; PULSE 62; RESP 18; TEMP 36.3; O2SAT 97
[2020-05-23] MEDS: Morphine 2 MG/ML Syringe IV ×4 (04:55→21:22)
[2020-05-23] MEDS: 0.9% Saline Lock 10 ML Syringe IV ×2 (04:55→12:10)
[2020-05-23] MEDS: 0.9% Normal Saline 1,000 ML 125 ML IV ×3 (05:00→21:06)
[2020-05-23 06:25] LABS: Absolute Lymphocyte Count 1.39 X10^3/uL (0.83-4.51); Absolute Neutrophil Count 4.5 X10^3/uL (2.0-7.7); Basophil# 0.04 X10^3/uL; Basophil% 0.6 % (0-1); Hematocrit 35.5 % (37-47); Hemoglobin 11.4 g/dL (12.0-15.0); Lymphocyte # 1.39 X10^3/ul (4.0); Lymphocyte % 21.6 % (19-41); Mean Corp Hgb Conc 32.1 g/dL (32-36); Mean Corpuscular Hgb 28.3 pg (27.0-32.0); Mean Corpuscular Volume 88.1 fL (81-99); Mean Platelet Vol. 10.2 fl (6.2-12.0); Monocyte# 0.46 X10^3/uL; Monocyte% 7.1 % (0-10); NRBC Flagged by Analyzer 0 % (0-5); Neutrophil # 4.54 X10^3/uL (2.7-7.7); Neutrophil % 70.4 % (47-70); Platelet Count 200 K/mm3 (150-450); RBC Distribution Width CV 12.5 % (11.6-14.6); RBC Distribution Width SD 40.2 fl (35.1-43.9); Red Blood Count 4.03 M/mm3 (4.2-5.4); White Blood Count 6.5 K/mm3 (4.4-11.0)
[2020-05-23 06:46] LABS: Anion Gap 4 (5-15); BUN 14 mg/dL (7-18); BUN/Creat Ratio 14.2 RATIO (10-20); Calcium,Total 8.6 mg/dL (8.5-10.1); Chloride 108 mmol/L (98-107); Creatinine, Serum 0.98 mg/dL (0.55-1.02); EST Glomerular Filtration Rate 61 mL/min (>60); Est Glom Filt Rate - Afr Amer 74 mL/min (>60); Estimated Creatinine Clearance 61.58 ml/min; Glucose 111 mg/dL (74-106); Potassium 4.1 mmol/L (3.5-5.1); Sodium Level 137 mmol/L (136-145)
[2020-05-23 07:35] VITALS: BP 126/52; PULSE 62; RESP 16; TEMP 36.9; O2SAT 98
[2020-05-23] MEDS: Ondansetron 4 MG/2 ML Vial IV (07:44)
--- NOTE | 2020-05-23 09:21 | PCM.HP.BLA ---
Problem List (1) Left kidney mass Status: Acute History and Physical Date of Admission: 05/23/20 59-year-old healthy female presented to the hospital with left flank pain and gross hematuria CT scan stone protocol was done and demonstrated a large mass in the left kidney with active bleeding. Troncoso catheter was placed because she was having difficulty with the blood clots she was admitted. CBC and hemoglobin are stable urine is fairly clear and the catheter is draining. Today I spoke to her regarding the findings of the CAT scan and further work-up that is necessary. Past medical history, healthy female no medical problems. She did see her family physician a year ago with normal lab test. Past surgical history, none Allergies, no known drug allergies Medications, no chronic medications, occasional Tylenol PM for sleep etc. Social history, she is in [place], , 3 children, no smoking, no excessive alcohol use or abuse Family history, mother and father heavy smokers at young age from cancer. Laboratory review, hemoglobin is stable, creatinine is normal, electrolytes normal Imaging review, CT scan stone protocol reviewed, 10 cm mass in the left kidney no obvious metastatic disease but no contrast was used. Examination Alert and oriented x3 in no acute distress, neurologically normal, Lungs regular regular respirations, Cardiovascular stable, Abdomen soft and benign no palpable mass. Extremities normal no clubbing cyanosis or edema SCDs in place Genitourinary exam deferred Review of systems, review of systems was negative except for the above findings of gross hematuria and left flank pain Assessment, 59-year-old female presented with a 10 cm mass actively bleeding from the left kidney. Plan to proceed with metastatic work-up we can do a CT scan of the chest abdomen pelvis with IV contrast. Urine is now clear no more clots in the bladder we will remove Troncoso catheter for voiding trial. I will see her this evening to review the follow-up CAT scan and then will get a plan for a left radical laparoscopic robotic assisted nephrectomy coming up this week. She understands a prognosis of her newly diagnosed renal mass will depend on the final pathology and stage and will proceed with a staging work-up this morning.
--- NOTE | 2020-05-23 09:28 | CT_ITS ---
STUDY: CT CHEST, ABDOMEN T PELVIS WITH CONTRAST REASON FOR EXAM: Female, 59 years old. renal mass left gross hematuria -- metastatic work up. RADIATION DOSAGE (If Supplied By Facility): CTDIvol = ( 23.85 ) mGy, DLP = ( 3324.45 ) mGycm TECHNIQUE: Transaxial imaging was performed following intravenous administration of IV 100mL Isovue-370. Individualized dose optimization techniques were used for this CT. COMPARISON: 05/22/2020 FINDINGS: CHEST Some dependent bibasilar atelectasis. Some right lower lobe discoid atelectasis. There is no demonstrated pleural abnormality. Normal heart and pericardium. Normal mediastinum. Normal hilar regions. Normal unenhanced pulmonary arteries. Normal aorta arch and descending thoracic aorta. Normal osseous structures. There is no demonstrated abnormality of the visualized upper abdomen. ABDOMEN Some dependent bibasilar atelectasis. The visualized portions of the heart are within normal limits. Normal liver. Normal gallbladder and extrahepatic biliary system. Normal spleen. Normal pancreas. There is a small, circumscribed, smooth, low attenuation right adrenal mass, consistent with an adrenal adenoma. Normal left adrenal gland. Normal right kidney. 7.2 x 8.0 cm necrotic enhancing mass of the upper pole of the left kidney worrisome for renal cell carcinoma. There is some associated perinephric edema. No evidence of tumor thrombus within the left renal vein or inferior vena cava. No adjacent lymphadenopathy. Normal visualized stomach. Normal small intestine. Normal colon. The appendix is visualized and appears normal. Normal abdominal aorta. Normal inferior vena cava. Normal retroperitoneum. There is a small umbilical hernia containing fat. Normal osseous structures. PELVIS Troncoso catheter within the collapsed bladder. Prominent left ovarian vein and parametrial veins suggestive of pelvic congestion syndrome. Normal visualized small intestine. Normal visualized colon. There is no pelvic fluid. There is no pelvic lymphadenopathy or mass lesion. Normal visualized pelvic arteries. Normal abdominal wall. Normal osseous structures. CT/CT Chest, Abd, Pel w/Contrast IMPRESSION: 1. 7.2 x 8.0 cm necrotic mass of the upper pole of the left kidney worrisome for renal cell carcinoma. No evidence of tumor thrombus within the left renal vein or inferior vena cava. Some perirenal fluid but no adjacent lymphadenopathy. No CT evidence of distant metastatic disease. 2. Some bibasilar dependent atelectasis. 3. Troncoso catheter within the bladder. 4. Suspect pelvic congestion syndrome. Electronically Signed: Colin Senior MD at 10:40 EDT Tel , Service support ,
[2020-05-23] MEDS: Acetaminophen 500 MG Tablet PO (13:26)
[2020-05-23 16:25] VITALS: BP 119/44; PULSE 68; RESP 16; TEMP 37.1; O2SAT 95
[2020-05-23 16:36] VITALS: PULSE 80
--- NOTE | 2020-05-23 17:53 | PCM.PN.BLA ---
Progress Note 59-year-old female she was admitted for a large left renal mass with bleeding she has been clinically stable but has not been able to urinate CAT scan demonstrates a mass within the bladder probably a blood clot and taken to surgery tomorrow for evacuation of this blood clot and hopefully removal of the catheter. N.p.o. at midnight and will get consent. STROKE Vital Signs/Narrative: Vital Signs Temp Pulse Resp BP Pulse Ox 05/23/20 16:36 80 05/23/20 16:25 98.7 F 68 16 119/44 L 95
[2020-05-23 22:36] VITALS: BP 124/55; PULSE 66; RESP 18; TEMP 37.1; O2SAT 95
[2020-05-24] VITALS (8 sets, daily range): BP systolic 114–129; BP diastolic 53–64; PULSE 60–69; RESP 16–18; TEMP 36.7–37.6; O2SAT 94–100; BMI 35.5
[2020-05-24] MEDS: 0.9% Normal Saline 1,000 ML 125 ML IV ×3 (04:17→14:46)
--- NOTE | 2020-05-24 10:05 | CASEMGMT ---
RN GIANA Face to Face with patient for initial transition planning/care coordination assessment. RN CM introduced self and role at [facility]. Patient lying in bed, alert and oriented. Patient willing to participate in assessment and is able to answer all questions appropriately. Care providers, pharmacy, and demographics verified. Patient wishes to discharge home, denies need for home health at this time. Patient states she has no further needs or concerns at this time. CM to follow for discharge planning needs that may arise. PCP:Kimberlyn Specialists: none Preferred Pharmacy: [facility] Insurance: [place] Prescription Benefit: yes Living Will/HPOA: none LNOK: Living Arrangements: Patient lives with in a single story home with 2 steps to enter. Patient is independent at home. Transportation: self/ DME/HHC: Patient denies DME or previous HHC Disposition Plan: Patient to discharge home with family support and follow-up plans in place. Aislinn MENDES, RN, CM
--- NOTE | 2020-05-24 12:51 | PCM.OPRPT ---
Problem List (1) Left kidney mass Status: Acute Report of Operation Date of Procedure: 05/24/20 Pre-Operative Diagnosis: Left renal mass with gross hematuria and clot retention in the bladder Post-Operative Diagnosis: Same Surgery/Procedure Performed:: Cystoscopy evacuation of blood clots in the bladder, left retrograde pyelogram Description of Surgical Findings:: Indication is a 59-year-old female who presented the hospital with gross hematuria is CAT scan was done to demonstrate a large mass in the upper pole the left kidney she had significant bleeding from this mass that would cause a large blood clot to form in the bladder she not been able to urinate so today when taken to surgery to remove the blood clot from her bladder and also performed a retrograde diagram to evaluate the urinary system and also see if there is any more bleeding. She also understands at some point she can need an radical nephrectomy on the left side for suspected malignancy. Patient was taken back to the operating room at the smooth induction of anesthesia she was placed in dorsolithotomy position. The urethra vaginal area prepped and draped in usual sterile fashion. Went in the bladder with a 21 Jamaican rigid cystourethroscope. Once inside the bladder there is a large blood clot within the bladder that was formed. I used Ellik evacuator then to Ellik out the blood clots and little tiny pieces once all the clots were removed from the bladder then I cannulated the left ureteral orifice and performed a left retrograde pyelogram and see contrast going all the way to the kidney and the collecting system was clear of any clots in the clear of any tumors within the kidney look like this mass is coming from the parenchyma of the kidney and not coming from the collecting system. After the retrograde pyelogram was done contrast is draining well bladder was emptied. We did not put a catheter backend patient acetic was reversed and she will be able to go home today after she is able to urinate. Type of Anesthesia:: General Drains: none - Admit VTE Documentation VTE Present on Admission: No VTE Mechan Device Prophylaxis: SCD's
--- NOTE | 2020-05-24 12:55 | DCINST_ITS ---
Discharge Diet: Light diet - advance as tolerated Discharge Activity: May Shower Call your doctor if your incision/area has: Sudden Increased Bleeding Allergies/Adverse Reactions: Allergies No Known Allergies Allergy (Verified 05/22/20 20:56) Medications to take at Discharge Ciprofloxacin [Cipro] 250 mg PO BID #6 tab 05/24/20 The following prescriptions were given: Ciprofloxacin [Cipro] 250 mg PO BID #6 tab Transmission Status: Pending to [facility] Primary Care Physician: Sveta Sofia DO [Primary Care Provider] - Test Results: Test results from this visit will be discussed in further detail at your follow- up appointment, if applicable. Please Follow Up With: Julito Manrique MD When: in 2 weeks, please call to make an appointment.
--- NOTE | 2020-05-24 12:55 | PCM.DC.SUM ---
Discharge Date and Diagnosis - Problem List Patient Problems: Active and Suspected Problems Left kidney mass (Acute) Date of Admission: 05/22/20 Date of Discharge: 05/24/20 - Primary Discharge Diagnosis Acute Problems: Active Problems Left kidney mass (Acute) Hospital Course and Treatment Imaging Results: 05/24/20 12:33 O.R. Fluoro for C-Arm [RAD] Urgent Operations: - - Cystoscopy evacuation of blood clots and left retrograde pyelogram Procedures: None Summary of Care Provided: The patient is a 59 year old female who presented with a large mass in the left kidney with active bleeding she was admitted for bedrest and serial H&H her hemoglobin stayed stable the bleeding stopped but she still was not able to urinate so we took her to surgery and performed a cystoscopy evacuation of blood clots were bladder and the left retrograde pyelogram. She understands that she has a malignant mass in the left kidney and recommend that she have a radical nephrectomy. Should be discharged home in good condition she was given instructions to follow-up in my office. Patient Problems: Active and Suspected Problems Left kidney mass (Acute) - Physical Exam Vitals/I&O's: Vital Signs Temp Pulse Resp BP Pulse Ox 98.2 F 65 16 118/53 L 96 05/24/20 10:49 05/24/20 10:49 05/24/20 10:49 05/24/20 10:49 05/24/20 10:49 Oxygen Delivery Method Room Air Weight: 106.1 kg Body Mass Index (BMI) 35.5 Intake and Output for Last 24 Hours 05/22/20 05/23/20 05/24/20 23:59 23:59 23:59 Intake Total 4184.58 / 4484.58 2054.17 / 205.17 Output Total 550 / 550 1775 / 2100 625 / 625 Balance -550 / -550 2409.58 / 2384.58 1429.17 / 1429.17 General: Alert, Oriented x3, Cooperative HEENT: Atraumatic, PERRLA, EOMI, Normocephalic Neck: Supple, No JVD, Negative Carotid Bruits Lungs: Clear to auscultation, Normal air movement Cardiovascular: Regular rate, No murmurs Abdomen: Bowel Sounds Present, Soft, Non Tender Extremities: No edema, Capillary Refill Less than 3 Seconds Skin: No rashes, No breakdown Musculoskeletal: No Tenderness to Palpation of Joints or Extremities Neurological: Cranial nerves II-XII grossly intact Psych/Mental Status: Normal Affect, Appropriate Microbiology Past 72 Hours 05/24/20 07:25 Mucosa - Nose SARS-CoV-2 Antigen (Rapid) - Final Current Medications Acetaminophen (Acetaminophen 500 Mg Tablet) 500 mg PO Q4H PRN PRN PRN Reason: Pain 1-10 or Fever Last Admin: 05/23/20 13:26 Dose: 500 mg Documented by: Sodium Chloride () 250 mls @ 15 mls/hr IV .[id number] PRN PRN Reason: Saline Flush Sodium Chloride () 250 mls @ 15 mls/hr IV .[id number] PRN PRN Reason: Additional IVPB Infusion Sodium Chloride () 1,000 mls @ 125 mls/hr IV .Q8H ALESHA Last Admin: 05/24/20 11:08 Dose: 125 mls/hr Documented by: Morphine Sulfate (Morphine 2 Mg/Ml Syringe) 2 mg IV Q2H PRN PRN PRN Reason: Pain Score 1-10 Last Admin: 05/23/20 21:22 Dose: 2 mg Documented by: Nutritional Formula (Lactose Free) (Ensure Enlive 120 Ml Liquid) 120 ml PO 4X/DAY ALESHA Last Admin: 05/24/20 11:03 Dose: Not Given Documented by: Ondansetron HCl (Ondansetron 4 Mg/2 Ml Vial) 4 mg IV Q6H PRN PRN PRN Reason: NAUSEA Last Admin: 05/23/20 07:44 Dose: 4 mg Documented by: Sodium Chloride (0.9% Saline Lock 10 Ml Syringe) 10 - 40 ml IV UD PRN PRN Reason: SALINE FLUSH Last Admin: 05/23/20 12:10 Dose: 10 ml Documented by: Discharge Diet: Light diet - advance as tolerated Discharge Activity: May Shower Call your doctor if your incision/area has: Sudden Increased Bleeding Home Medications: Medications to take at Discharge Ciprofloxacin [Cipro] 250 mg PO BID #6 tab 05/24/20 Following Prescriptions Were Given to Patient: Ciprofloxacin [Cipro] 250 mg PO BID #6 tab Transmission Status: Pending to [facility] Primary Care Physician: Sveta Sofia DO [Primary Care Provider] - Please Follow Up With: Julito Manrique MD When: in 2 weeks, please call to make an appointment. Medical Necessity - Tobacco Use Smoking Status: Never smoker Tobacco Use: Non-smoker Meaningful Use Info Meaningful Use Diagnoses (Choose all that apply): None applicable
--- NOTE | 2020-05-24 15:23 | PHA.DC.MC ---
Pharmacy Service has performed discharge medication reconciliation and counseling for this patient. 1. CIPROFLOXACIN 250MG PO BID X 3 DAYS The patient's discharge medication list was reviewed for discrepancies and discrepancies were resolved. Home Medications Ciprofloxacin [Cipro] 250 mg PO BID #6 tab 05/24/20 The patient was counseled on the following discharge medications and changes in medications for homegoing were reviewed. The Reason for Use, instructions for use, and potential side effects were reviewed for all new medications. The patient's questions regarding all of their medications were answered. The patient was able to verbally demonstrate an understanding of their discharge medications.
[2020-05-24] MEDS: Acetaminophen 500 MG Tablet PO (17:26)
--- NOTE | 2020-05-25 14:41 | CASEMGMT ---
RN CM Discharge Follow Up Phone Call: ZENY: Emigdio Strata: 1 Call Date: 05/25/20 Discharge Date: 05/24/20 Time of Call: 1444 Duration: 2 min Admitting Dx: renal mass RN GIANA completed follow up phone call after recent hospitalization. Pt states she is doing well. Denies questions regarding her medications or dc instructions. She states she had good care and does not have any suggestions for improvements.
== END 2020-05-24 17:30 | disposition home or self-care (01) | DRG 688 ==
LOC: ED 21:38 → MS3 05-23 00:53
PROVIDERS: Admitting Provider Urology; Emergency Provider Emergency Medicine; PCP Internal Medicine; Visit Provider Urology
PROC: 0TBB8ZX Excision of Bladder, Via Natural or Artificial Opening Endoscopic, Diagnostic (ICD-10-PCS; principal; 2020-05-24 12:20)
DX: C64.2 Malignant neoplasm of left kidney, except renal pelvis (principal); R31.9 Hematuria, unspecified; Z87.442 Personal history of urinary calculi
CPT/HCPCS: 71260; 74176; 74177; 76000; 80048; 81001; 85025; 87426; 99285; J7030; Q9967; A4216; C1769; J2405

== ENCOUNTER 2020-05-27 14:16 | Emergency (ER) | payer BC, SELFPAY ==
[2020-05-24 10:49] VITALS: BMI 35.5
[2020-05-27 14:16] VITALS: BP 151/72; PULSE 93; RESP 14; TEMP 36.9; O2SAT 97; BMI 33.5
--- NOTE | 2020-05-27 14:27 | ED.DCSUM_ITS ---
- ER Visit Summary Date of Service: 05/27/20 Chief Complaint: [Abdominal pain and inability to urinate] History of Present Illness: The patient is a 59 F [does the emergency department complaint of inability to urinate and abdominal pain. Patient was seen for hematuria several days ago and was diagnosed with kidney cancer. Patient has an indwelling Troncoso catheter. She is been drinking also fluids throughout the day today but the Troncoso is not draining. Patient is passing blood through it. Patient complaining of lower abdominal pain. She denies fever. She denies nausea or vomiting. She otherwise has no other medical history.] Physical Examination: HEENT-PERRLA, EOMI. Cranial nerves II through XII grossly intact. TMs clear. Mucous membranes moist. No adenopathy. Cardiovascular-regular rate and rhythm without murmur or ectopy Lungs-clear to auscultation, chest wall stable without crepitus or subcu emphysema Abdomen-normoactive bowel sounds, soft. Patient has diffuse lower abdominal discomfort on palpation. Patient has guarding. Bladder feels distended. Bentley navarro has an indwelling Troncoso catheter with small amount of blood in the bag noted. Extremities-intact ?4, normal range of motion, normal pulses, atraumatic [] Test Results: [CBC with differential showing a 5.7, hemoglobin 10.8, hematocrit 33, placed 216. Chemistries unremarkable. ] Emergency Department Course and Treatment: [IV line established on arrival. Patient had her Troncoso catheter flushed and it began draining immediately over 1200 cc of urine that was bloody. No significant clots noted.] Treatment Plan: [At this point patient advised to push fluids she will be advised on how to attempt to flush the catheter should it become clogged again. If she is unable to get the Troncoso functioning again she is to return to the emergency department. Patient will have her Troncoso catheter in place until the time of her surgery on June 09.] Disposition: [Discharged home in stable condition] Impression: Hematuria Urinary retention Renal cancer [] This note was generated with [employer] dictation software. It may contain incorrect words, spelling, and punctuation that were not noted in review of the chart prior to signing ED Disposition - Plan for ED Patient: Referrals: Sveta Sofia DO [Primary Care Provider] -
[2020-05-27 14:47] LABS: Absolute Neutrophil Count 3.2 X10^3/uL (2.0-7.7); Basophil# 0.03 X10^3/uL; Basophil% 0.5 % (0-1); Eosinophil# 0.12 X10^3/uL; Eosinophils% 2.1 % (0-5); Hemoglobin 10.8 g/dL (12.0-15.0); Lymphocyte % 31.6 % (19-41); Mean Corp Hgb Conc 32.7 g/dL (32-36); Mean Corpuscular Hgb 28.4 pg (27.0-32.0); Mean Corpuscular Volume 86.8 fL (81-99); Mean Platelet Vol. 10.4 fl (6.2-12.0); Monocyte# 0.53 X10^3/uL; Monocyte% 9.3 % (0-10); NRBC Flagged by Analyzer 0 % (0-5); Neutrophil % 56.3 % (47-70); Platelet Count 216 K/mm3 (150-450); RBC Distribution Width CV 12.7 % (11.6-14.6); RBC Distribution Width SD 40.5 fl (35.1-43.9); White Blood Count 5.7 K/mm3 (4.4-11.0)
[2020-05-27 15:00] LABS: Anion Gap 5 (5-15); BUN 10 mg/dL (7-18); BUN/Creat Ratio 12.4 RATIO (10-20); Chloride 105 mmol/L (98-107); Creatinine, Serum 0.81 mg/dL (0.55-1.02); EST Glomerular Filtration Rate 77 mL/min (>60); Est Glom Filt Rate - Afr Amer 93 mL/min (>60); Estimated Creatinine Clearance 74.51 ml/min; Glucose 97 mg/dL (74-106); Potassium 4.3 mmol/L (3.5-5.1); Sodium Level 136 mmol/L (136-145)
--- NOTE | 2020-05-27 15:27 | ED.DEP ---
ED Disposition - Plan for ED Patient: Instructions: Caring for Your Indwelling Urinary Catheter, ED Troncoso Catheter, Care Referrals: Sveta Sofia, [Primary Care Provider] - As Needed
[2020-05-27 15:43] VITALS: BP 137/69
== END 2020-05-27 15:47 | disposition home or self-care (01) ==
LOC: ED 14:43
PROVIDERS: Emergency Provider Emergency Medicine; PCP Internal Medicine
DX: C64.9 Malignant neoplasm of unspecified kidney, except renal pelvis (principal); R31.9 Hematuria, unspecified; R33.9 Retention of urine, unspecified; Z96.0 Presence of urogenital implants
CPT/HCPCS: 80048; 85025; 99283; A4216

== ENCOUNTER → 2020-11-10 | Outpatient (CLI) | payer BC, SELFPAY ==
[2020-11-15 16:41] LABS: HPV Reflexed? NOT INDICATED
== END | disposition home or self-care (01) ==
LOC: LABSPEC 11:40
PROVIDERS: PCP Internal Medicine; Visit Provider Obstetrics & Gynecology
DX: Z12.4 Encounter for screening for malignant neoplasm of cervix (principal)
CPT/HCPCS: 88175; G0145

== ENCOUNTER → 2020-12-31 11:13 | Outpatient (CLI) | payer BC, SELFPAY ==
--- NOTE | 2020-12-31 11:17 | BI_ITS ---
MAMMOGRAPHY - BILATERAL SCREENING REASON FOR EXAM: Female, 60 years old. Routine annual screening examination. PERTINENT HISTORY: Aunt with breast cancer. TECHNIQUE: Digital bilateral breast janice (3D mammographic acquisition) in the CC and MLO projections. 2-D mediolateral oblique (MLO) and craniocaudad (CC) views of both breasts were obtained. CAD: Full Field Digital Mammography with Computer Added Detection was performed. COMPARISON: Comparison is made with prior study dated 01/26/2018 and 04/02/2014. FINDINGS: Breast Composition: There are scattered areas of fibroglandular density. There are no dominant masses or suspicious calcifications. Stable small benign-appearing bilateral axillary lymph. No other significant abnormalities are identified. There has been no significant change since the prior study. BI/SCRN MAMM (CAD)W/JANICE BILAT IMPRESSION: Stable bilateral screening mammogram. Yearly follow-up mammogram recommended. (A) ASSESSMENT CATEGORY: BIRADS Category 2: Benign. A letter regarding these results will be sent to the patient by the facility within 30 days. Approximately 10% of breast cancers are not detected by mammography. A normal mammogram should not delay biopsy of a clinically suspicious abnormality. [id number] Electronically Signed: Eliel Grey MD at 12:54 EST , Service support ,
== END ==
LOC: OPBI 11:15
PROVIDERS: PCP Internal Medicine; Referring Provider Obstetrics & Gynecology; Visit Provider Obstetrics & Gynecology
DX: Z12.31 Encounter for screening mammogram for malignant neoplasm of breast (principal)
CPT/HCPCS: 77063; 77067

== ENCOUNTER 2022-02-12 22:46 | Emergency (ER) | payer BC, SELFPAY ==
[2022-02-12 22:46] VITALS: BP 154/75; PULSE 82; RESP 15; TEMP 36.4; O2SAT 100; BMI 30.4
[2022-02-12 23:00] LABS: Mucous, Urine 0 SEEN /hpf (<or=2+); Squamous Epithelial Cells - UA 0 SEEN /hpf (5-10)
[2022-02-12 23:13] LABS: Color, Urine Red (Yellow); Glucose, Dipstick Normal (Normal); Ketone-Dipstick Negative (Negative); Leukocyte Esterase-Dipstick 500 /ul (Negative); Nitrite-Dipstick Negative (Negative); Occult Blood-Urine 250 /ul (Negative); Protein-Dipstick 100 mg/dl (Negative); Urine Bilirubin Dipstick Negative (Negative); Urine Clarity Turbid (Clear); Urine Urobilinogen Normal (Normal)
[2022-02-12 23:50] VITALS: BP 131/83; PULSE 79; RESP 16; TEMP 36.6; O2SAT 98
--- NOTE | 2022-02-13 00:01 | EDS_ITS ---
HPI HPI - Female History of Present Illness Chief Complaint: Complaint Informant: patient Associated Symptoms Associated Symptoms: Positive for Dysuria, Frequency, Urgency and Hematuria Narrative Narrative: Urinary symptoms that started tonight for several hours, urethral burning when she urinates, frequently, small amounts. When she is not urinating, she does not have any pain. No abdominal or back discomfort. Some nausea but no vomiting. No fevers or chills. She has a history of renal Cell carcinoma and had a left nephrectomy, no major issues since then. No history of stones. She is urinating small mount of blood that started after the other urinary symptoms tonight. She denies any retention or clots that she has noted. She takes no anticoagulants or other medications. [facility] Medical History Kidney carcinoma Home Medications cephalexin 500 mg capsule 500 mg PO Q6 #28 CAPSULES 02/13/22 [Rx Last Taken Unknown] phenazopyridine 200 mg tablet (Pyridium) 200 mg PO TID PRN pain #10 tabs 02/13/22 [Rx Last Taken Unknown] Allergy/AdvReac Type Severity Reaction Status Date / Time No Known Allergies Allergy Verified 02/12/22 22:50 Surgical History (Updated 02/12/22 @ 23:04 by Chantal Marshall) H/O kidney removal Social History Smoking Status: Never smoker ROS ROS ED Constitutional Constitutional ED: Denies chills or fever(s) Eyes Eyes: Denies change in vision or diplopia ENT ENT ED: Denies rhinorrhea or sore throat Cardiovascular Cardiovascular: Denies chest pain or palpitations Respiratory/Chest Respiratory/Chest: Denies cough or dyspnea Gastrointestinal Gastrointestinal: Denies abdominal pain, diarrhea, nausea or vomiting Genitourinary Genitourinary ED: Reports as per HPI, dysuria, hematuria and urinary frequency Musculoskeletal Musculoskeletal: Denies back pain or neck pain Integumentary Denies abscess or rash Neurologic Neurologic: Denies headache(s), paresthesias or weakness Psychiatric Psychiatric: Denies anxiety or suicidal thoughts EXAM Physical Exam Const Vital Signs: 02/12/22 22:46 02/12/22 23:50 02/13/22 00:38 Temperature 97.5 F L 97.8 F 97.4 F L Temperature Source Temporal Oral Oral Pulse Rate 82 79 74 Respiratory Rate 15 16 16 Blood Pressure 154/75 H 131/83 H 130/82 H Blood Pressure Mean 101 99 98 Pulse Ox 100 98 98 Oxygen Delivery Method Room Air Room Air Room Air Positive well nourished and well developed General Appearance ED: well developed and NAD HEENT Reports moist mucous membranes normocephalic and atraumatic Eyes PERRL and EOMs intact bilaterally Neck full ROM and supple Resp normal respiratory effort and clear to auscultation bilaterally Cardio regular rate, regular rhythm and no murmurs Rate: Negative for tachycardic GI non-tender and non-distended Auscultation: normoactive bowel sounds Palpation: soft Back/Spine no CVA tenderness General Back: other FROM Extremity normal to inspection General Extremety ED: Negative for edema, pulses abnormal or tenderness General Extremity: Negative for edema or pulses abnormal Neuro oriented x3, CN's II-XII intact bilaterally and no sensory deficits noted Sensorium / Orientation: awake and alert Motor Exam: strength 5/5 throughout Skin no rashes or lesions noted and no wounds MDM MDM MDM Narrative Medical decision making narrative: Although infection is the most likely cause of the symptoms, differential also includes a UVJ stone. Since her urinalysis shows infection, I do not think she needs imaging or further testing. I sent her urine for culture, we will start her on Pyridium for the symptoms as well as cephalexin, and we discussed reasons to return. No symptoms or clinical concern for pyelonephritis at this time. Lab Data Attestation: I reviewed the patient's lab results. Labs: Laboratory Results - last 24 hr 02/12/22 22:55 Urine Color Red Urine Clarity Turbid Urine pH 6.0 Ur Specific [place] 1.010 Urine Protein 100 H Urine Glucose (UA) Normal Urine Ketones Negative Urine Occult Blood 250 H Urine Nitrite Negative Urine Bilirubin Negative Urine Urobilinogen Normal Ur Leukocyte Esterase 500 H Urine RBC > 100 SEEN Urine WBC >100 SEEN Ur Squamous Epith Cells 0 SEEN Urine Bacteria 1+ Urine Mucus 0 SEEN Discharge Plan Triage Chief Complaint: Complaint ED Provider: Boris Segura Dx/Rx/DC Orders Clinical Impression: Acute hemorrhagic cystitis Instructions: ED Cystitis Female Adult Prescriptions: New phenazopyridine [Pyridium] 200 MG tablet 200 mg PO TID PRN (Reason: pain) Qty: 10 0RF cephalexin [cephalexin] 500 MG capsule 500 mg PO Q6 Qty: 28 0RF Primary Care Provider: Sveta Sofia Referrals: Sveta Sofia, [Primary Care Provider] - 3-5 Days if not improving (culture was sent at hospital, should take 2 days or so to come back and will tell if there is resistance to the initial antibiotic choice) Disposition Disposition: Home, Self Care
[2022-02-13 00:18] LABS: Red Blood Cells-Urine > 100 SEEN /hpf (0-5); White Blood Cells >100 SEEN /hpf (0-5)
[2022-02-13 00:19] LABS: Bacteria 1+ /hpf (None Seen)
[2022-02-13 00:38] VITALS: BP 130/82; PULSE 74; RESP 16; TEMP 36.3; O2SAT 98
[2022-02-13 01:00] VITALS: BP 132/64; PULSE 73; RESP 16; TEMP 36.6; O2SAT 96
[2022-02-13] MEDS: Phenazopyridine 95 MG Tablet 190 MG PO (01:04)
[2022-02-13] MEDS: Cephalexin 250 MG Capsule 500 MG PO (01:04)
== END 2022-02-13 01:09 | disposition home or self-care (01) ==
PROVIDERS: Emergency Provider Emergency Medicine; PCP Internal Medicine; Visit Provider Emergency Medicine
DX: N30.91 Cystitis, unspecified with hematuria (principal)
CPT/HCPCS: 81001; 87077; 87086; 87088; 87186; 99283; A4216

== ENCOUNTER → 2022-05-22 | Outpatient (CLI) | payer BC, SELFPAY ==
[2022-05-27 08:31] LABS: HPV APTIMA, High Risk Negative (Negative)
== END | disposition home or self-care (01) ==
LOC: LABSPEC 11:51
PROVIDERS: PCP Internal Medicine; Referring Provider Obstetrics & Gynecology; Visit Provider Obstetrics & Gynecology
DX: N95.9 Unspecified menopausal and perimenopausal disorder (principal)
CPT/HCPCS: 87624; 88175; G0145

== ENCOUNTER → 2022-07-14 | Outpatient (CLI) | payer BC, SELFPAY ==
--- NOTE | 2022-07-13 | SKTAG_PTH ---
PATIENT: ADILIA GARDNER LOC: [facility] U#:[id number] AGE/SX: 61/F ROOM: RE07/14/[address]: Dr. Dilcia Dee MD : 1960 BED: DIS: 07/14/2022 SPEC #: [id number] RECD: 07/13/22 15:47 STATUS: ROSITA RERosmery #: [id number] HERIBERTO: 07/13/22 00:[address]: Dilcia Dee DEPT: SURGICAL PATHOLOGY RECD BY: Mikki Clarke ENTERED: 07/14/22 10:58 SP TYPE: SKIN TAG TREVON DR: Dr. Sveta Sofia, DO Tissues: Skin appendage, NOS Procedures: Surgery Specimen Level III HEADER OPERATION: Skin tag removal PRE-OP DIAGNOSIS: Skin tag TISSUE SUBMITTED: Skin tag MICROSCOPIC DIAGNOSIS Skin tag, excision: Fibroepithelial polyp (skin tag). SOPHIA:jericho 07/17/2022 MICROSCOPIC DESCRIPTION Slides are reviewed. GROSS DESCRIPTION Received is one container labeled with the patient's name and not further designated. The specimen consists of a polypoid piece of fernandez-white skin measuring 0.4 x 0.4 x 0.2 cm. The specimen is inked, bisected and submitted entirely in one cassette. / SJ:rg 07/14/2022 TC:5 CPT: 40540
== END | disposition home or self-care (01) ==
LOC: LABSPEC 10:12
PROVIDERS: PCP Internal Medicine; Referring Provider Obstetrics & Gynecology; Visit Provider Obstetrics & Gynecology
DX: L91.8 Other hypertrophic disorders of the skin (principal)
CPT/HCPCS: 88304

== ENCOUNTER → 2023-08-09 | Outpatient (CLI) | payer BC, SELFPAY ==
--- NOTE | 2023-08-09 09:54 | BI_ITS ---
MAMMOGRAPHY - BILATERAL SCREENING REASON FOR EXAM: Female, 62 years old. Routine annual screening examination. PERTINENT HISTORY: Aunt with breast cancer. TECHNIQUE: Digital bilateral breast janice (3D mammographic acquisition) in the CC and MLO projections. 2-D mediolateral oblique (MLO) and craniocaudad (CC) views of both breasts were obtained. CAD: Full Field Digital Mammography with Computer Added Detection was performed. COMPARISON: Comparison is made with prior study dated December 31, 2020 and January 26, 2018. FINDINGS: Breast Composition: There are scattered areas of fibroglandular density. There are no dominant masses or suspicious calcifications. Stable small bilateral axillary lymph nodes. No other significant abnormalities are identified. There has been no significant change since the prior study. BI/SCRN MAMM (CAD)W/JANICE BILAT IMPRESSION: Stable bilateral screening mammogram. Yearly follow-up mammogram recommended. (A) ASSESSMENT CATEGORY: BIRADS Category 2: Benign. A letter regarding these results will be sent to the patient by the facility within 30 days. Approximately 10% of breast cancers are not detected by mammography. A normal mammogram should not delay biopsy of a clinically suspicious abnormality. [id number] Electronically Signed: Eliel Grey MD at 11:40 EDT ,
== END | disposition home or self-care (01) ==
LOC: OPBI 09:54
PROVIDERS: PCP Internal Medicine; Referring Provider Internal Medicine; Visit Provider Internal Medicine
DX: Z12.31 Encounter for screening mammogram for malignant neoplasm of breast (principal); Z80.3 Family history of malignant neoplasm of breast
CPT/HCPCS: 77063; 77067

== ENCOUNTER → 2025-01-07 | Outpatient (CLI) | payer MEDICARE, SELFPAY ==
[2025-01-07 09:19] LABS: Mucous, Urine 0 SEEN /hpf (<or=2+); Red Blood Cells-Urine 0 SEEN /hpf (0-5)
[2025-01-07 10:18] LABS: Hematocrit 40.8 % (37-47); Hemoglobin 13.2 g/dL (12.0-15.0); Immature Granulocytes Count 0.010 X10^3/uL (0.0-0.0); Mean Corp Hgb Conc 32.4 g/dL (32-36); Mean Corpuscular Volume 89.3 fL (81-99); Mean Platelet Vol. 10.8 fl (6.2-12.0); NRBC Flagged by Analyzer 0 % (0-5); Platelet Count 210 K/mm3 (150-450); RBC Distribution Width CV 12.4 % (11.6-14.6); RBC Distribution Width SD 40.6 fl (35.1-43.9); Red Blood Count 4.57 M/mm3 (4.2-5.4); White Blood Count 4.5 K/mm3 (4.4-11.0)
[2025-01-07 10:25] LABS: Prothrombin Time (Protime)PT. 13.3 SECONDS (11.7-14.9)
[2025-01-07 10:26] LABS: Partial Thromboplast Time 25.8 Seconds (24.1-36.2)
[2025-01-07 12:27] LABS: Color, Urine Yellow (Yellow); Glucose, Dipstick Normal (Normal); Ketone-Dipstick Negative (Negative); Leukocyte Esterase-Dipstick 100 /ul (Negative); Nitrite-Dipstick Negative (Negative); Occult Blood-Urine Negative /ul (Negative); Protein-Dipstick Negative (Negative); Specific Gravity, Urine 1.015 (1.002-1.030); Urine Bilirubin Dipstick Negative (Negative)
[2025-01-07 12:38] LABS: Squamous Epithelial Cells - UA 0-5 SEEN /hpf (5-10)
[2025-01-07 12:55] LABS: Creatinine, Urine (random) 119.00 mg/dL (28.00-217.00); Microalbumin,Random Urine < 12.0 mg/L (<20 mg/L)
[2025-01-07 13:01] LABS: FOLATES,SERUM (FOLIC ACID) 11.80 ng/mL (4.60-34.80)
[2025-01-07 13:21] LABS: AST(SGOT) 23 U/L (<=31); Alanine Aminotransfer ALT/SGPT 19 U/L (<=34); Albumin, Serum 4.4 g/dL (3.4-4.8); Alkaline Phosphatase 65 U/L (35-104); Anion Gap 12 (5-15); BUN 14 mg/dL (4-19); BUN/Creat Ratio 15.2 RATIO (10-20); Calcium,Total 9.7 mg/dL (7.6-11.0); Carbon Dioxide 22.9 mmol/L (21.0-32.0); Chloride 103 mmol/L (98-108); Cholesterol 260 mg/dL (<=200); Globulin 3.1 g/dL (2.2-4.2); Glucose 93 mg/dL (70-99); Low Density Lipoprotein Calc. 168 mg/dL; Potassium 4.5 mmol/L (3.3-5.1); Triglycerides 144 mg/dL; Very Low Density Lipoprotein 29 mg/dL (5-40); Vitamin B12 308 pg/mL (180-914); Vitamin D,25 Hydroxy 39.7 ng/mL (30-100); cholesterol:hdl ratio screen 3.93
[2025-01-09 09:08] LABS: VWD Studies Interp Report Note (.)
== END | disposition home or self-care (01) ==
LOC: CIMLAB 09:15
PROVIDERS: PCP Internal Medicine; Referring Provider Internal Medicine; Visit Provider Internal Medicine
DX: R73.09 Other abnormal glucose (principal); E78.5 Hyperlipidemia, unspecified; E55.9 Vitamin D deficiency, unspecified; D69.9 Hemorrhagic condition, unspecified
CPT/HCPCS: 36415; 80053; 80061; 81001; 82043; 82306; 82570; 82607; 82746; 83036; 85025; 85240; 85245; 85246; 85610; 85730

== ENCOUNTER → 2025-01-27 | Outpatient (CLI) | payer MEDICARE, SELFPAY ==
--- NOTE | 2025-01-27 13:30 | BD_ITS ---
PROCEDURE: DEXA BONE DENSITY STUDY 01/27/2025 REASON FOR EXAM: SCREENING F, age 64 y/o . Postmenopausal. TECHNIQUE: Procedure Code: BDDBD Modality: DX Procedure: DEXA BONE DENSITY STUDY COMPARISON: December 18, 2017. FINDINGS: BMD and T-SCORES Lumbar spine: 0.863 g/cm2, T-score -1.7 Levels: L1 through L4 Change from prior: Loss of 10.7%. Left femoral neck: 0.756 g/cm2, T-score -0.8 Femoral neck comparison data not recommended for monitoring change. Left total hip: 0.972 g/cm2, T-score 0.2 Change from prior: Loss of 4.2%. Right femoral neck: 0.742 g/cm2, T-score -1.2 Femoral neck comparison data not recommended for monitoring change. Right total hip: 0.949 g/cm2, T-score 0.1 Change from prior: Loss of 1.8%. The World Health Organization has defined the following categories based on bone density: Normal bone density: T-score equal to or greater than -1.0 Osteopenia: T-score between -1.0 and -2.5 Osteoporosis: T-score equal to or less than -2.5 FRAX (or Comparable) Fracture Risk Assessment: 10 Year Probability of Fracture: Major Osteoporotic Fracture: 7.4% Hip Fracture: 0.5% (Note: FRAX is not to be reported in setting of normal range bone density, osteoporosis on DEXA, known history of osteoporosis, prior osteoporotic hip or vertebral fracture, or for any patient undergoing pharmacological treatment for bone loss.) The [employer] Osteoporosis Foundation (NOF) recommends pharmacological treatment for patients with a FRAX 10-year risk of 3% or higher for a hip fracture, or 20% or higher for a major osteoporotic fracture, to prevent osteoporosis and reduce fracture risk. The patient does meet the pharmacological treatment recommendations for prevention of osteoporosis. BD/Dexa Bone Density Study IMPRESSION: OSTEOPENIA. Recommend follow-up as clinically warranted. Reading Location: [id number]
== END | disposition home or self-care (01) ==
LOC: OPBD 13:22
PROVIDERS: PCP Internal Medicine; Referring Provider Internal Medicine; Visit Provider Internal Medicine
DX: Z78.0 Asymptomatic menopausal state (principal)
CPT/HCPCS: 77080